=== PATIENT | female | born 1935 | race Caucasian/White ===

== ENCOUNTER → 2016-11-23 | Outpatient (CLI) | payer MEDICARE, OTHER ==
[~2016-11-23] MED LIST: DENOSUMAB 60 MG/ML 1 ML SYRINGE SQ ONE
[2016-11-23 13:36] VITALS: BP 126/70; PULSE 76; RESP 18; TEMP 97.7
== END | disposition home or self-care (01) ==
LOC: PROCWHC3 12:54
PROVIDERS: ATTEND Internal Medicine Rheumatology
DX: M81.0 Age-related osteoporosis without current pathological fracture (principal)
CPT/HCPCS: 96372

== ENCOUNTER → 2017-06-02 | Outpatient (CLI) | payer MEDICARE, OTHER ==
--- NOTE | 2017-06-07 10:55 | MM ---
Reason for exam: screening (asymptomatic). Last mammogram was performed 1 year and 6 months ago. History: Patient is postmenopausal. Family history of breast cancer in cousin at age 61. Benign excisional biopsy of the left breast, January 17, 2003. Stereotactic core biopsy, December 21, 2002. Benign core biopsy of the right breast. Physical Findings: A clinical breast exam by your physician is recommended on an annual basis and results should be correlated with mammographic findings. MG 3D Screening Mammo W/Cad Bilateral CC and MLO view(s) were taken. Prior study comparison: December 10, 2015, bilateral MG 3d screening mammo w/cad. April 10, 2014, bilateral MG screening mammo w CAD. There are scattered fibroglandular densities. There is no discrete abnormality. ASSESSMENT: Negative, BI-RAD 1 RECOMMENDATION: Routine screening mammogram of both breasts in 1 year.
== END | disposition home or self-care (01) ==
LOC: RADMAMWWP 14:29
PROVIDERS: ATTEND Family Medicine
DX: Z12.31 Encounter for screening mammogram for malignant neoplasm of breast (principal)
CPT/HCPCS: 77063; G0202

== ENCOUNTER 2017-06-11 06:05 | Day surgery (SDC) | payer MEDICARE, OTHER ==
[2017-06-09 13:23] VITALS: BMI 24.3
[2017-06-11] MEDS ORDERED: LACTATED RINGERS 1,000 ML IV SCH (06:11)
[2017-06-11] MEDS ORDERED: SODIUM CHLORIDE 0.9% 1,000 ML IV SCH ×2 (06:11→07:45)
[2017-06-11] MEDS: BENZOCAINE SPRAY 100 APPLIC/CAN MUCOUS MEM ONE ×2 (07:00→07:15)
[2017-06-11] MEDS ORDERED: LIDOCAINE 1% INJ 10MG/ML (20 ML MDV) ONE (07:03)
[2017-06-11] MEDS ORDERED: PROPOFOL 10 MG/ML 20 ML VIAL IV ONE (07:03)
[2017-06-11 07:05] LABS: Anion Gap 8 mmol/L; Blood Urea Nitrogen 17 mg/dL (7-17); Carbon Dioxide 27 mmol/L (22-30); Chloride 104 mmol/L (98-107); Glucose 70 mg/dL (74-99); Non-African American GFR(MDRD) >60 (>60 ml/min/1.73 sqM); Sodium 139 mmol/L (137-145)
[2017-06-11 07:07] LABS: Potassium 5.8 mmol/L (3.5-5.1)
[2017-06-11] MEDS ORDERED: predniSONE 10 MG TAB PO PRN (07:33)
[2017-06-11 07:40] VITALS: TEMP 97
[2017-06-11] MEDS ORDERED: DENOSUMAB 60 MG/ML 1 ML SYRINGE SQ SCH (07:45)
[2017-06-11] MEDS ORDERED: cycloSPORINE 0.05% OPHTH 0.4 ML DROPERETTE BOTH EYES SCH (07:45)
--- NOTE | 2017-06-11 07:57 | ECHOT ---
INDICATION: Atrial fibrillation. PROCEDURE: After explaining the procedure to the patient, its risks and complications, her heat rate, blood pressure and O2 saturation was monitored. Sedation was obtained by the anesthesia department. The throat was sprayed with Cetacaine. The probe was introduced into the esophagus without difficulty. Images were obtained. Following that, the probe was removed. There was no immediate complication. FINDINGS: Left atrial size is dilated. 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 The left ventricular size is normal. The left ventricular systolic function is mildly impaired. Ejection fraction is about 50%. There aortic valve revealed fibrocalcific change with aortic cusp with preserved opening. Evidence of mitral valve annuloplasty was noted. The tricuspid valve is normal. The descending thoracic aorta appears to be normal. No pericardial effusion was noted. Contrast bubble study revealed no evidence of shunting across the interatrial septum. Doppler pulse wave and color Doppler obtained and revealed moderate mitral with mild tricuspid regurgitation. There was no shunting by color Doppler study. CONCLUSION: 1. 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 2. Normal left ventricular size with mild global hypokinesis. 3. Evidence of mitral valve annuloplasty with moderate mitral regurgitation. 4. Mild tricuspid regurgitation. 5. No shunting across the interatrial septum. [facility]
[2017-06-11] MEDS ORDERED: SODIUM CHLORIDE 0.9% 500 ML IV ONE (08:00)
[2017-06-11 08:53] VITALS: PULSE 70; RESP 18
[2017-06-11] MEDS ORDERED: LOSARTAN 25 MG TAB PO SCH (09:00)
[2017-06-11] MEDS ORDERED: ALPRAZolam 0.25 MG TAB PO SCH ×2 (09:00→21:00)
[2017-06-11] MEDS ORDERED: ABATACEPT 125 MG SQ SCH (09:00)
[2017-06-11] MEDS ORDERED: CHOLECALCIFEROL 1,000 UNIT TAB PO SCH (09:00)
[2017-06-11] MEDS ORDERED: FOLIC ACID 1 MG TAB PO SCH (09:00)
[2017-06-11] MEDS ORDERED: VENLAFAXINE HCL ER 150 MG CAP PO SCH (09:00)
[2017-06-11] MEDS ORDERED: METOCLOPRAMIDE 5 MG TAB PO SCH (09:00)
[2017-06-11] MEDS ORDERED: FERROUS SULFATE 325 MG TAB PO SCH (09:00)
[2017-06-11] MEDS ORDERED: APIXABAN 5 MG TAB PO SCH (09:00)
[2017-06-11] MEDS ORDERED: NON-FORMULARY DRUG (Vit A/Vit C/Vit E/Zinc/Copper [Icaps Softgel] 1 CAP) PO SCH (09:00)
[2017-06-11] MEDS ORDERED: LEVOTHYROXINE SODIUM 137 MCG PO SCH (09:00)
[2017-06-11] MEDS ORDERED: IPRATROPIUM BROMIDE EA NOSTRIL SCH (09:00)
[2017-06-11] MEDS ORDERED: ALLOPURINOL 100 MG TAB PO SCH (09:00)
[2017-06-11] MEDS ORDERED: NITROFURANTOIN MONOHYD/M-CRYST 100 MG CAP PO SCH (09:00)
[2017-06-11] MEDS ORDERED: AMIODARONE 200 MG TAB PO SCH (09:00)
[2017-06-11] MEDS ORDERED: METHOTREXATE SODIUM 2.5 MG TAB PO SCH (09:00)
[2017-06-11] MEDS ORDERED: predniSONE 10 MG TAB PO SCH (09:00)
[2017-06-11] MEDS ORDERED: METOPROLOL TARTRATE 50 MG TAB PO SCH (09:00)
[2017-06-11 09:46] VITALS: BP 133/66
[2017-06-11] MEDS ORDERED: MELATONIN 5 MG TABLET PO SCH (21:00)
[2017-06-11] MEDS ORDERED: TEMAZEPAM 30 MG CAP PO SCH (21:00)
[2017-06-11] MEDS ORDERED: NIACIN 500 MG PO SCH (21:00)
[2017-06-11] MEDS ORDERED: NON-FORMULARY DRUG (Esomeprazole Magnesium [Nexium] 40 MG) PO SCH (21:00)
--- NOTE | 2017-06-12 10:04 | PCN ---
PROCEDURE: Cardioversion. INDICATION: Atrial fibrillation. PROCEDURE: After explaining the procedure to the patient its risks and complications. After obtaining sedation by the anesthesia department and performing transesophageal echocardiogram, a synchronized biphasic cardioversion using 200 joules was performed with orthodoxy of normal sinus rhythm. No was no immediate complication. JESSICA
== END 2017-06-11 09:48 | disposition home or self-care (01) ==
LOC: CATHCVL 06:05
PROVIDERS: ATTEND Internal Medicine Interventional Cardiology
DX: I48.1 Persistent atrial fibrillation (principal); I08.1 Rheumatic disorders of both mitral and tricuspid valves; I25.10 Atherosclerotic heart disease of native coronary artery without angina pectoris; I10 Essential (primary) hypertension; E78.2 Mixed hyperlipidemia; E03.9 Hypothyroidism, unspecified; Z82.49 Family history of ischemic heart disease and other diseases of the circulatory system; I11.9 Hypertensive heart disease without heart failure; Z79.01 Long term (current) use of anticoagulants; Z79.899 Other long term (current) drug therapy; Z79.52 Long term (current) use of systemic steroids; Z88.8 Allergy status to other drugs, medicaments and biological substances
CPT/HCPCS: 93312; 93320; 93005; 93325; 92960; 80048; J2001; J2704

== ENCOUNTER 2017-09-05 10:13 | Inpatient (IN) | payer MEDICARE, OTHER ==
[2017-09-05] MEDS ORDERED: SODIUM CHLORIDE 0.9% 1,000 ML IV STA (10:55)
[2017-09-05] MEDS ORDERED: ACETAMINOPHEN TAB 325 MG TAB PO STA (10:55)
--- NOTE | 2017-09-05 11:00 | ED ---
General Adult HPI - General Chief complaint: Fever Stated complaint: irregular heartbeat Time Seen by Provider: 09/05/17 10:38 Source: patient, RN notes reviewed Mode of arrival: wheelchair Limitations: no limitations - History of Present Illness Initial comments: 81-year-old female presents for evaluation of fever and generalized weakness. Patient has past medical history of atrial fibrillation, CAD, dementia, rheumatoid arthritis currently on methotrexate. Patient complains of some intermittent lower abdominal pain and dysuria. As well as urinary frequency. She also reports fever for the past several days. Patient denies shortness of breath, states she has had a mild cough as well. Denies URI symptoms. Denies chest pain. Denies nausea or vomiting. States she has had several loose stools which is normal for her. - Related Data Home Medications Medication Instructions Recorded Confirmed Allopurinol [Zyloprim] 100 mg PO DAILY 03/21/14 06/09/17 Esomeprazole Magnesium [NexIUM] 40 mg PO HS 03/21/14 06/11/17 Levothyroxine Sodium [Synthroid] 137 mcg PO DAILY 03/21/14 06/09/17 Denosumab [Prolia] 60 mg SQ DIRECTED 06/21/14 06/09/17 Niacin [Niacin ER] 500 mg PO HS 08/17/14 06/11/17 cycloSPORINE 0.05% OPHTH SOLN 1 applicator BOTH EYES Q12H 08/17/14 06/09/17 [Restasis] Apixaban [Eliquis] 5 mg PO BID 11/02/14 06/11/17 Venlafaxine HCl ER [Effexor XR] 150 mg PO DAILY 02/20/15 06/11/17 ALPRAZolam [Xanax] 1 mg PO BID 03/28/15 06/09/17 Ipratropium [place] [Atrovent 1 sprays EA NOSTRIL BID 04/26/15 06/09/17 Nasal [place] 0.03%] Metoprolol Tartrate [Lopressor] 50 mg PO BID 04/26/15 06/11/17 Amiodarone [Cordarone] 200 mg PO BID 05/23/15 06/11/17 Melatonin 20 mg PO HS 05/23/15 06/11/17 Methotrexate Sodium [Methotrexate] 4 tab PO WEEKLY 05/23/15 06/11/17 Procrit 40,000 units SQ DIRECTED 05/23/15 11/23/16 Temazepam [Restoril] 30 mg PO HS 05/23/15 06/09/17 ALPRAZolam [Xanax] 2 mg PO HS 06/09/17 06/11/17 Abatacept [Orencia] 125 mg SQ WEEKLY 06/09/17 06/09/17 Cholecalciferol [Vitamin D3] 5,000 unit PO WEEKLY 06/09/17 06/11/17 Ferrous Sulfate [Iron] 150 mg PO DAILY 06/09/17 06/09/17 Folic Acid 1 mg PO DAILY 06/09/17 06/11/17 Metoclopramide [Reglan] 5 mg PO TID 06/09/17 06/09/17 Nitrofurantoin Monohyd/M-Cryst 100 mg PO Q12HR 06/09/17 06/09/17 [Macrobid] Vit A/Vit C/Vit E/Zinc/Copper 1 cap PO DAILY 06/09/17 06/11/17 [ICAPS SOFTGEL] predniSONE 10 mg PO BID 06/09/17 06/09/17 predniSONE 10 mg PO DAILY PRN 06/09/17 06/11/17 Previous Rx's Medication Instructions Recorded Losartan [Cozaar] 25 mg PO DAILY #0 04/30/15 Allergies Allergy/AdvReac Type Severity Reaction Status Date / Time clonazepam [From Klonopin] Allergy Hallucinati Verified 09/05/17 10:28 ons Review of Systems ROS Statement: Those systems with pertinent positive or pertinent negative responses have been documented in the HPI. ROS Other: All systems not noted in ROS Statement are negative. Past Medical History Past Medical History: Atrial Fibrillation, Eye Disorder, GERD/Reflux, Hearing Disorder / Deafness, Memory Impairment, Osteoarthritis (OA), Rheumatoid Arthritis (RA), Thyroid Disorder Additional Past Medical History / Comment(s): HX of MACULAR DEGENERATION, PANCREATITIS, HARD OF HEARING. MYELODYSPLASPIC SYNDROME, BONE MARROW DISEASE. History of Any Multi-Drug Resistant Organisms: None Reported Past Surgical History: Back Surgery, Bariatric Surgery, Cardiac Valve Replacement, Cholecystectomy Additional Past Surgical History / Comment(s): INTESTINAL BYPASS/PROLAPSED RECTUM, TUMMY TUCK, CARDIAC VALVE REPAIR. Past Anesthesia/Blood Transfusion Reactions: No Reported Reaction Additional Past Anesthesia/Blood Transfusion Reaction / Comment(s): PAST BLOOD TRANSFUSION, no problems. Past Psychological History: Anxiety, Depression Smoking Status: Never smoker Past Alcohol Use History: None Reported Past Drug Use History: None Reported - Past Family History Mother Family Medical History: Myocardial Infarction ([place]) Father Family Medical History: Myocardial Infarction ([place]) General Exam Limitations: no limitations General appearance: alert, in no apparent distress Head exam: Present: atraumatic, normocephalic Eye exam: Present: normal appearance, scleral icterus. Absent: periorbital swelling, periorbital tenderness ENT exam: Present: mucous membranes dry Neck exam: Present: normal inspection. Absent: tenderness, meningismus Respiratory exam: Present: normal lung sounds bilaterally. Absent: respiratory distress Cardiovascular Exam: Present: regular rate, irregular rhythm GI/Abdominal exam: Present: soft. Absent: distended, tenderness, guarding, rebound Extremities exam: Present: normal inspection, normal capillary refill. Absent: pedal edema Neurological exam: Present: alert, oriented X3, CN II-XII intact. Absent: motor sensory deficit Psychiatric exam: Present: normal affect, normal mood Skin exam: Present: warm, dry, intact. Absent: cyanosis, diaphoretic Course Vital Signs 09/05/17 10:23 Temperature 100.7 F H Pulse Rate 75 Respiratory 16 Rate Blood Pressure 105/63 O2 Sat by Pulse 94 L Oximetry EKG Findings - EKG Comments: EKG Findings:: EKG shows atrial fibrillation, ventricular rate 90, castration 104, QTC 450, no ST segment elevation, T-wave abnormality in the precordial leads Medical Decision Making - Medical Decision Making 81-year-old female presenting with fever and generalized weakness. Patient was concerned for UTI, there is no significant signs of urinary tract infection at this time. She does admit to mild cough. Chest x-ray shows early consolidation in the left lung. White blood cell count is normal at 5.8, hemoglobin 13.1 which is stable, magnesium is low at 1.2 and is replaced. TSH elevated at 11.5, additional thyroid studies will be added. Patient's family member is concerned with her weakness, she will not be able to take care of herself. Patient will be admitted for electrolyte replacement, and treatment of community-acquired pneumonia. - Lab Data Result diagrams: 09/05/17 11:00 09/05/17 11:44 Lab Results 09/05/17 09/05/1717 Range/Units 11:00 11:00 11:00 WBC 5.8 (3.8-10.6) k/uL RBC 3.91 (3.80-5.40) m/uL Hgb 13.1 (11.4-16.0) gm/dL Hct 41.2 (34.0-46.0) % MCV 105.5 H (80.0-100.0) fL MCH 33.6 (25.0-35.0) pg MCHC 31.9 (31.0-37.0) g/dL RDW 15.2 (11.5-15.5) % Plt Count 199 (150-450) k/uL Neutrophils % 64 % Lymphocytes % 22 % Monocytes % 9 % Eosinophils % 2 % Basophils % 0 % Neutrophils # 3.7 (1.3-7.7) k/uL Lymphocytes # 1.3 (1.0-4.8) k/uL Monocytes # 0.5 (0-1.0) k/uL Eosinophils # 0.1 (0-0.7) k/uL Basophils # 0.0 (0-0.2) k/uL Macrocytosis Moderate PT (9.0-12.0) sec INR (<1.2) APTT (22.0-30.0) sec Sodium (137-145) mmol/L Potassium (3.5-5.1) mmol/L Chloride (98-107) mmol/L Carbon Dioxide (22-30) mmol/L Anion Gap mmol/L BUN (7-17) mg/dL Creatinine (0.52-1.04) mg/dL Est GFR (MDRD) Af Amer (>60 ml/min/1.73 sqM) Est GFR (MDRD) Non-Af (>60 ml/min/1.73 sqM) Glucose (74-99) mg/dL Plasma Lactic Acid [place] (0.7-2.0) mmol/L Calcium (8.4-10.2) mg/dL Magnesium (1.6-2.3) mg/dL Total Bilirubin (0.2-1.3) mg/dL AST (14-36) U/L ALT (9-52) U/L Alkaline Phosphatase (38-126) U/L Total Creatine Kinase (30-135) U/L CK-MB (CK-2) (0.0-2.4) ng/mL CK-MB (CK-2) Rel Index Troponin I (0.000-0.034) ng/mL NT-Pro-B Natriuret Pep pg/mL Total Protein (6.3-8.2) g/dL Albumin (3.5-5.0) g/dL TSH (0.465-4.680) mIU/L Urine Color Yellow Urine Appearance Clear (Clear) Urine pH 6.5 (5.0-8.0) Ur Specific [place] 1.017 (1.001-1.035) Urine Protein Negative (Negative) Urine Glucose (UA) Negative (Negative) Urine Ketones Negative (Negative) Urine Blood Negative (Negative) Urine Nitrite Negative (Negative) Urine Bilirubin Negative (Negative) Urine Urobilinogen <2.0 (<2.0) mg/dL Ur Leukocyte Esterase Small H (Negative) Urine RBC 3 (0-5) /hpf Urine WBC 4 (0-5) /hpf Ur Squamous Epith Cells 1 (0-4) /hpf Urine Bacteria Rare H (None) /hpf Hyaline Casts 4 H (0-2) /lpf Urine Mucus Rare H (None) /hpf Influenza Type A RNA Not Detected (Not Detectd) Influenza Type B (PCR) Not Detected (Not Detectd) 09/05/17 09/05/17 09/05/17 Range/Units 11:00 11:00 11:44 WBC (3.8-10.6) k/uL RBC (3.80-5.40) m/uL Hgb (11.4-16.0) gm/dL Hct (34.0-46.0) % MCV (80.0-100.0) fL MCH (25.0-35.0) pg MCHC (31.0-37.0) g/dL RDW (11.5-15.5) % Plt Count (150-450) k/uL Neutrophils % % Lymphocytes % % Monocytes % % Eosinophils % % Basophils % % Neutrophils # (1.3-7.7) k/uL Lymphocytes # (1.0-4.8) k/uL Monocytes # (0-1.0) k/uL Eosinophils # (0-0.7) k/uL Basophils # (0-0.2) k/uL Macrocytosis PT 10.8 (9.0-12.0) sec INR 1.1 (<1.2) APTT 25.3 (22.0-30.0) sec Sodium (137-145) mmol/L Potassium (3.5-5.1) mmol/L Chloride (98-107) mmol/L Carbon Dioxide (22-30) mmol/L Anion Gap mmol/L BUN (7-17) mg/dL Creatinine (0.52-1.04) mg/dL Est GFR (MDRD) Af Amer (>60 ml/min/1.73 sqM) Est GFR (MDRD) Non-Af (>60 ml/min/1.73 sqM) Glucose (74-99) mg/dL Plasma Lactic Acid [place] (0.7-2.0) mmol/L Calcium (8.4-10.2) mg/dL Magnesium (1.6-2.3) mg/dL Total Bilirubin (0.2-1.3) mg/dL AST (14-36) U/L ALT (9-52) U/L Alkaline Phosphatase (38-126) U/L Total Creatine Kinase 29 L (30-135) U/L CK-MB (CK-2) 0.2 (0.0-2.4) ng/mL CK-MB (CK-2) Rel Index 0.7 Troponin I <0.012 (0.000-0.034) ng/mL NT-Pro-B Natriuret Pep 2740 pg/mL Total Protein (6.3-8.2) g/dL Albumin (3.5-5.0) g/dL TSH (0.465-4.680) mIU/L Urine Color Urine Appearance (Clear) Urine pH (5.0-8.0) Ur Specific [place] (1.001-1.035) Urine Protein (Negative) Urine Glucose (UA) (Negative) Urine Ketones (Negative) Urine Blood (Negative) Urine Nitrite (Negative) Urine Bilirubin (Negative) Urine Urobilinogen (<2.0) mg/dL Ur Leukocyte Esterase (Negative) Urine RBC (0-5) /hpf Urine WBC (0-5) /hpf Ur Squamous Epith Cells (0-4) /hpf Urine Bacteria (None) /hpf Hyaline Casts (0-2) /lpf Urine Mucus (None) /hpf Influenza Type A RNA (Not Detectd) Influenza Type B (PCR) (Not Detectd) 09/05/17 09/05/17 Range/Units 11:44 11:44 WBC (3.8-10.6) k/uL RBC (3.80-5.40) m/uL Hgb (11.4-16.0) gm/dL Hct (34.0-46.0) % MCV (80.0-100.0) fL MCH (25.0-35.0) pg MCHC (31.0-37.0) g/dL RDW (11.5-15.5) % Plt Count (150-450) k/uL Neutrophils % % Lymphocytes % % Monocytes % % Eosinophils % % Basophils % % Neutrophils # (1.3-7.7) k/uL Lymphocytes # (1.0-4.8) k/uL Monocytes # (0-1.0) k/uL Eosinophils # (0-0.7) k/uL Basophils # (0-0.2) k/uL Macrocytosis PT (9.0-12.0) sec INR (<1.2) APTT (22.0-30.0) sec Sodium 133 L (137-145) mmol/L Potassium 4.3 (3.5-5.1) mmol/L Chloride 98 (98-107) mmol/L Carbon Dioxide 26 (22-30) mmol/L Anion Gap 9 mmol/L BUN 15 (7-17) mg/dL Creatinine 0.80 (0.52-1.04) mg/dL Est GFR (MDRD) Af Amer >60 (>60 ml/min/1.73 sqM) Est GFR (MDRD) Non-Af >60 (>60 ml/min/1.73 sqM) Glucose 84 (74-99) mg/dL Plasma Lactic Acid [place] 1.0 (0.7-2.0) mmol/L Calcium 9.2 (8.4-10.2) mg/dL Magnesium 1.2 L (1.6-2.3) mg/dL Total Bilirubin 0.4 (0.2-1.3) mg/dL AST 37 H (14-36) U/L ALT 33 (9-52) U/L Alkaline Phosphatase 74 (38-126) U/L Total Creatine Kinase (30-135) U/L CK-MB (CK-2) (0.0-2.4) ng/mL CK-MB (CK-2) Rel Index Troponin I (0.000-0.034) ng/mL NT-Pro-B Natriuret Pep pg/mL Total Protein 6.3 (6.3-8.2) g/dL Albumin 3.7 (3.5-5.0) g/dL TSH 11.500 H (0.465-4.680) mIU/L Urine Color Urine Appearance (Clear) Urine pH (5.0-8.0) Ur Specific [place] (1.001-1.035) Urine Protein (Negative) Urine Glucose (UA) (Negative) Urine Ketones (Negative) Urine Blood (Negative) Urine Nitrite (Negative) Urine Bilirubin (Negative) Urine Urobilinogen (<2.0) mg/dL Ur Leukocyte Esterase (Negative) Urine RBC (0-5) /hpf Urine WBC (0-5) /hpf Ur Squamous Epith Cells (0-4) /hpf Urine Bacteria (None) /hpf Hyaline Casts (0-2) /lpf Urine Mucus (None) /hpf Influenza Type A RNA (Not Detectd) Influenza Type B (PCR) (Not Detectd) Disposition Clinical Impression: Community acquired pneumonia, Hypomagnesemia, Generalized weakness Disposition: ADMITTED IP TO THIS [facility] Condition: Stable Referrals: Ariadne Henderson MD [Primary Care Provider] - 1-2 days Decision to Admit Reason: Admit from EC Decision Date: 09/05/17 Decision Time: 13:00
[2017-09-05 11:31] LABS: Appearance,Urine Clear (Clear); Bacteria,Urine Rare /hpf; Bilirubin,Urine Negative (Negative); Glucose,Urine (UA) Negative (Negative); Ketones,Urine Negative (Negative); Leukocyte Esterase,Urine Small (Negative); Mucus,Urine Rare /hpf; Nitrite,Urine Negative (Negative); PH, Urine 6.5 (5.0-8.0); Particle Count 4106; Protein,Urine Negative (Negative); RBC,Urine 3 /hpf (0-5); Specific Gravity,Urine 1.017 (1.001-1.035); Squamous Epithelial Cell,Urine 1 /hpf (0-4); UA Billing (MACRO vs. MICRO) MICRO; Urobilinogen,Urine <2.0 mg/dL (<2.0); WBC,Urine 4 /hpf (0-5)
[2017-09-05 11:37] LABS: Basophils % (A) 0 %; CH 34.4; CHCM 32.7; Eosinophils # (A) 0.1 k/uL (0-0.7); Eosinophils % (A) 2 %; HCT 41.2 % (34.0-46.0); HDW 2.92; HGB 13.1 gm/dL (11.4-16.0); Luc % (Auto) 4; Lymphocytes # (A) 1.3 k/uL (1.0-4.8); Lymphocytes % (A) 22 %; MCH 33.6 pg (25.0-35.0); MCHC 31.9 g/dL (31.0-37.0); MCV 105.5 fL (80.0-100.0); Macrocytosis Moderate; Mean Platelet Volume 7.6; Monocytes # (A) 0.5 k/uL (0-1.0); Monocytes % (A) 9 %; Neutrophils # (A) 3.7 k/uL (1.3-7.7); Neutrophils % (A) 64 %; RBC 3.91 m/uL (3.80-5.40); RDW 15.2 % (11.5-15.5); WBC 5.8 k/uL (3.8-10.6); WBC (Perox) 5.56
[2017-09-05 11:59] LABS: INR 1.1 (<1.2); Partial Thromboplastin Time 25.3 sec (22.0-30.0); Prothrombin Time 10.8 sec (9.0-12.0)
[2017-09-05 12:07] LABS: ALT 33 U/L (9-52); AST 37 U/L (14-36); Alkaline Phosphatase 74 U/L (38-126); Anion Gap 9 mmol/L; Blood Urea Nitrogen 15 mg/dL (7-17); Calcium 9.2 mg/dL (8.4-10.2); Carbon Dioxide 26 mmol/L (22-30); Chloride 98 mmol/L (98-107); Glucose 84 mg/dL (74-99); Magnesium 1.2 mg/dL (1.6-2.3); Non-African American GFR(MDRD) >60 (>60 ml/min/1.73 sqM); Potassium 4.3 mmol/L (3.5-5.1); Sodium 133 mmol/L (137-145); Total Bilirubin 0.4 mg/dL (0.2-1.3); Total Protein 6.3 g/dL (6.3-8.2)
[2017-09-05 12:20] LABS: Creatine Kinase 29 U/L (30-135)
[2017-09-05 12:33] LABS: Creatine Kinase MB 0.2 ng/mL (0.0-2.4); Troponin I <0.012 ng/mL (0.000-0.034)
--- NOTE | 2017-09-05 12:38 | XR ---
EXAMINATION TYPE: XR chest 2V DATE OF EXAM: 09/05/2017 HISTORY: fever. REFERENCE: Previous study dated 04/26/2015. FINDINGS: There has been a midline sternotomy. The lungs are overinflated. The heart is mildly enlarged. There is scarring at the right lung base. T here is atelectasis in the left midlung. There is chronic interstitial change. This is likely on the basis of interstitial fibrosis. Pleural spaces are clear. IMPRESSION: 1. COPD. 2. CARDIOMEGALY. 3. SCARRING, RIGHT LUNG BASE. 4. ATELECTASIS OR EARLY CONSOLIDATION, LEFT MIDLUNG.
[2017-09-05] MEDS ORDERED: AZITHROMYCIN 500 MG in SODIUM CHLORIDE 0.9% 250 ML IVPB STA (12:56)
[2017-09-05] MEDS ORDERED: cefTRIAXone IN SWFI 1,000 MG/10 ML SYRINGE IVP STA (12:58)
[2017-09-05] MEDS ORDERED: NALOXONE 0.4 MG/ML 1 ML VIAL IV PRN (13:03)
[2017-09-05] MEDS ORDERED: ACETAMINOPHEN TAB 325 MG TAB PO PRN (13:03)
[2017-09-05 15:02] VITALS: BMI 21.7
[2017-09-05] MEDS ORDERED: ALPRAZolam 0.5 MG TAB PO PRN (16:10)
[2017-09-05] MEDS ORDERED: LOPERAMIDE 2 MG CAP PO PRN (16:10)
[2017-09-05] MEDS: MAGNESIUM SULFATE-D5W PMX 1 GM in DEXTROSE/WATER 1 100ML.BAG IVPB SCH ×4 (17:12→23:52)
--- NOTE | 2017-09-05 17:31 | P.HPIM ---
History of Present Illness 81-year-old female on methotrexate the him is a pleasant because of methotrexate does have history of forearm denied arthritis came in with symptoms of dysuria or urinary urgency and frequency patient has a slight cough. Patient was admitted for urinary tract infection or pneumonia patient had a chest x-ray which showed some similar changes on the x-ray which are suspicious for releases of pneumonia although I reviewed the chest x-ray patient may have little bit of pulmonary edema beyond which I didn't see much of a pneumonic infiltrate, patient the urine is mildly abnormal because patient was partially being treated with Macrobid as an outpatient. Patient will be continued on present antibiotic Rocephin and also azithromycin as I cannot completely rule out pneumonia patient is definitely immunosuppressive had fevers at home doesn't have significant leukocytosis because of the fact she is being partially treated for urinary tract infection with nitrofurantoin time. Urine cultures and blood cultures were obtained but I suspect that urine cultures are negative as she is being partially treated for her tract infectionarea at patient was also complaining of generalized weakness and tiredness going on for sometime Review of Systems REVIEW OF SYSTEMS: CONSTITUTIONAL: as mentioned above HEENT: No recent visual problems or hearing problems. Denied any sore throat. CARDIOVASCULAR: No chest pain, orthopnea, PND, no palpitations, no syncope. PULMONARY: No shortness of breath, no cough, no hemoptysis. GASTROINTESTINAL: No diarrhea, no nausea, no vomiting, no abdominal pain. Normoactive bowel sounds. NEUROLOGICAL: No headaches, no weakness, no numbness. HEMATOLOGICAL: Denies any bleeding or petechiae. GENITOURINARY: as mentioned above MUSCULOSKELETAL/RHEUMATOLOGICAL: Denies any joint pain, swelling, or any muscle pain. ENDOCRINE: Denies any polyuria or polydipsia. The rest of the 14-point review of systems is negative. Past Medical History Past Medical History: Atrial Fibrillation, Eye Disorder, GERD/Reflux, Hearing Disorder / Deafness, Memory Impairment, Osteoarthritis (OA), Rheumatoid Arthritis (RA), Thyroid Disorder Additional Past Medical History / Comment(s): HX of MACULAR DEGENERATION, PANCREATITIS, HARD OF HEARING. MYELODYSPLASTIC SYNDROME, BONE MARROW DISEASE. History of Any Multi-Drug Resistant Organisms: None Reported Past Surgical History: Back Surgery, Bariatric Surgery, Cardiac Valve Replacement, Cholecystectomy Additional Past Surgical History / Comment(s): INTESTINAL BYPASS/PROLAPSED RECTUM, TUMMY TUCK, CARDIAC VALVE REPAIR. Past Anesthesia/Blood Transfusion Reactions: No Reported Reaction Additional Past Anesthesia/Blood Transfusion Reaction / Comment(s): PAST BLOOD TRANSFUSION, no problems. Past Psychological History: Anxiety, Depression Additional Psychological History / Comment(s): pt's brother rosalino lives with her. pt stated she is independant uses cane at times and has had 4 falls recently. Smoking Status: Never smoker Past Alcohol Use History: None Reported Past Drug Use History: None Reported - Past Family History Mother Family Medical History: Myocardial Infarction ([place]) Father Family Medical History: Myocardial Infarction ([place]) Medications and Allergies Home Medications Medication Instructions Recorded Confirmed Type Allopurinol [Zyloprim] 100 mg PO DAILY 03/21/14 09/05/17 History Niacin [Niacin ER] 500 mg PO HS 08/17/14 09/05/17 History Apixaban [Eliquis] 5 mg PO BID 11/02/14 09/05/17 History Venlafaxine HCl ER [Effexor XR] 150 mg PO DAILY 02/20/15 09/05/17 History Metoprolol Tartrate [Lopressor] 50 mg PO DAILY 04/26/15 09/05/17 History Losartan [Cozaar] 25 mg PO DAILY #0 04/30/15 09/05/17 Rx Melatonin 10 mg PO HS 05/23/15 09/05/17 History Methotrexate Sodium [Methotrexate] 10 mg PO FR 05/23/15 09/05/17 History Temazepam [Restoril] 30 mg PO HS 05/23/15 09/05/17 History Ferrous Sulfate [Iron] 325 mg PO DAILY 06/09/17 09/05/17 History Nitrofurantoin Monohyd/M-Cryst 100 mg PO Q12HR 06/09/17 09/05/17 History [Macrobid] ALPRAZolam [Xanax] 1 mg PO BID 09/05/17 09/05/17 History ALPRAZolam [Xanax] 2 mg PO HS 09/05/17 09/05/17 History Acetaminophen with Codeine 1 tab PO Q6H PRN 09/05/17 09/05/17 History [Acetaminophen-Cod #2 Tablet] Donepezil [Aricept] 5 mg PO HS 09/05/17 09/05/17 History Ergocalciferol [Vitamin D2] 50,000 unit PO FR 09/05/17 09/05/17 History Levothyroxine Sodium 137 mcg PO DAILY 09/05/17 09/05/17 History Loperamide [Imodium] 2 mg PO QID PRN 09/05/17 09/05/17 History Lutein-Zeaxantnin 25mg/5mg 1 tab PO DAILY 09/05/17 09/05/17 History Magnesium Oxide [Mag-Ox] 400 mg PO DAILY 09/05/17 09/05/17 History Mirabegron [Myrbetriq] 25 mg PO ONCE 09/05/17 09/05/17 History Mirabegron [Myrbetriq] 50 mg PO DAILY 09/05/17 09/05/17 History Omeprazole [PriLOSEC] 40 mg PO DAILY 09/05/17 09/05/17 History Allergies Allergy/AdvReac Type Severity Reaction Status Date / Time clonazepam [From Klonopin] Allergy Hallucinati Verified 09/05/17 10:28 ons Physical Exam Vitals: Vital Signs Temp Pulse Pulse Resp BP BP Pulse Ox 09/05/17 15:00 98.2 F 95 16 111/68 92 L 09/05/17 13:31 98.3 F 84 16 122/67 96 09/05/17 10:23 100.7 F H 75 16 105/63 94 L Intake and Output 09/05/17 09/05/17 09/05/17 06:59 14:59 22:59 Other: # Voids 0 # Bowel Movements 0 Weight 52 kg Patient Weight 09/06/17 06:59 Weight 52 kg PHYSICAL EXAMINATION: GENERAL: The patient is alert and oriented x3, not in any acute distress. Well developed, well nourished. HEENT: Pupils are round and equally reacting to light. EOMI. No scleral icterus. No conjunctival pallor. Normocephalic, atraumatic. No pharyngeal erythema. No thyromegaly. CARDIOVASCULAR: S1 and S2 present. patient has grade 4 x 4 diastolic murmur and diuretic area, rubs, or gallops. PULMONARY: Chest is clear to auscultation, no wheezing or crackles. ABDOMEN: Soft, nontender, nondistended, normoactive bowel sounds. No palpable organomegaly. MUSCULOSKELETAL: No joint swelling or deformity. EXTREMITIES: No cyanosis, clubbing, or pedal edema. NEUROLOGICAL: Gross neurological examination did not reveal any focal deficits. SKIN: No rashes. Results CBC & Chem 7: 09/05/17 11:00 09/05/17 11:44 Labs: Abnormal Lab Results - Last 24 Hours (Table) 09/05/17 09/05/17 09/05/17 Range/Units 11:00 11:00 11:44 MCV 105.5 H (80.0-100.0) fL Sodium (137-145) mmol/L Magnesium (1.6-2.3) mg/dL AST (14-36) U/L Total Creatine Kinase 29 L (30-135) U/L TSH (0.465-4.680) mIU/L Ur Leukocyte Esterase Small H (Negative) Urine Bacteria Rare H (None) /hpf Hyaline Casts 4 H (0-2) /lpf Urine Mucus Rare H (None) /hpf 09/05/17 Range/Units 11:44 MCV (80.0-100.0) fL Sodium 133 L (137-145) mmol/L Magnesium 1.2 L (1.6-2.3) mg/dL AST 37 H (14-36) U/L Total Creatine Kinase (30-135) U/L TSH 11.500 H (0.465-4.680) mIU/L Ur Leukocyte Esterase (Negative) Urine Bacteria (None) /hpf Hyaline Casts (0-2) /lpf Urine Mucus (None) /hpf Microbiology - Last 24 Hours (Table) 09/05/17 11:00 Urine Culture - Preliminary Urine,Voided Thrombosis Risk Factor Assmnt - Choose All That Apply Each Factor Represents 1 point: Abnormal pulmonary function (COPD), Oral contraceptives or hormone replacement therapy, Serious lung disease incl. pneumonia (< 1month) Each Risk Factor Represents 3 Points: Age 75 years or older Thrombosis Risk Factor Assessment Total Risk Factor Score: 6 Thrombosis Risk Factor Assessment Level: High Risk Assessment and Plan Plan: #1 fever: Most probably related to urinary tract infection patient will be continued on above-mentioned antibiotics's azithromycin and probably can be discontinued tomorrow. #2he'll fibrillation: Rate controlled patient will be continued on anticoagulation. Continue her rate control medications. #3 mild systolic dysfunction although I do not know her ejection fraction patient does not appear to be in significant exacerbation that mild may be mild pulmonary edema. We'll continue to monitor this can you IV fluids #4 Aortic regurgitation: Which is being monitored as outpatient. #5 gastroesophageal reflux disease #6 osteoarthritis and rheumatoid arthritis #7 hypothyroidismand TSH is elevated because of which I'm increasing the dose of levothyroxine patient's generalized weakness is probably related to that #8 hypomagnesemia potassium will be supplemented
[2017-09-05] MEDS: Acetaminophen-Codeine 300-30mg TAB PO PRN (18:45)
[2017-09-05] MEDS ORDERED: DONEPEZIL 5 MG TAB PO SCH (21:00)
[2017-09-05] MEDS ORDERED: ALPRAZolam 0.5 MG TAB PO SCH (21:00)
[2017-09-05] MEDS ORDERED: MELATONIN 5 MG TABLET PO SCH (21:00)
[2017-09-05] MEDS ORDERED: NIACIN TR 500 MG CAPSULE.ER PO SCH (21:00)
[2017-09-05] MEDS: HYDROcodone/APAP 5-325MG 1 EACH TAB PO PRN (22:19)
[2017-09-05] MEDS: APIXABAN 5 MG TAB PO SCH (22:19)
[2017-09-06] MEDS: Acetaminophen-Codeine 300-30mg TAB PO PRN (02:41)
[2017-09-06] MEDS: HYDROcodone/APAP 5-325MG 1 EACH TAB PO PRN ×2 (04:34→10:23)
[2017-09-06] MEDS ORDERED: LEVOTHYROXINE 75 MCG TAB PO SCH (06:30)
[2017-09-06 07:58] LABS: Aty Lym Flag Moderate; CH 33.3; CHCM 30.9; HCT 36.4 % (34.0-46.0); HDW 2.77; HGB 11.2 gm/dL (11.4-16.0); Hypochromasia Moderate; MCH 33.3 pg (25.0-35.0); MCHC 30.8 g/dL (31.0-37.0); MCV 108.4 fL (80.0-100.0); Macrocytosis Marked; Mean Platelet Volume 7.6; RBC 3.36 m/uL (3.80-5.40); WBC 4.7 k/uL (3.8-10.6)
[2017-09-06 08:22] LABS: ALT 34 U/L (9-52); AST 35 U/L (14-36); Alkaline Phosphatase 64 U/L (38-126); Anion Gap 9 mmol/L; Blood Urea Nitrogen 11 mg/dL (7-17); Calcium 8.3 mg/dL (8.4-10.2); Carbon Dioxide 25 mmol/L (22-30); Chloride 101 mmol/L (98-107); Glucose 88 mg/dL (74-99); Magnesium 2.2 mg/dL (1.6-2.3); Non-African American GFR(MDRD) >60 (>60 ml/min/1.73 sqM); Potassium 3.7 mmol/L (3.5-5.1); Sodium 135 mmol/L (137-145); Total Bilirubin 0.3 mg/dL (0.2-1.3); Total Protein 6.4 g/dL (6.3-8.2)
[2017-09-06] MEDS: APIXABAN 5 MG TAB PO SCH (08:32)
[2017-09-06 08:36] LABS: Add Differential Manual Differential
[2017-09-06 08:38] LABS: Manual Review Performed; Nucleated Red Blood Cells 0 /100 WBC (0-0); Total Cells Counted 100
[2017-09-06 08:42] VITALS: BP 129/72; PULSE 83; RESP 16; TEMP 97.8
[2017-09-06] MEDS ORDERED: LOSARTAN 25 MG TAB PO SCH (09:00)
[2017-09-06] MEDS ORDERED: PANTOPRAZOLE 40 MG TABLET PO SCH (09:00)
[2017-09-06] MEDS ORDERED: METOPROLOL TARTRATE 50 MG TAB PO SCH (09:00)
[2017-09-06] MEDS ORDERED: FERROUS SULFATE 325 MG TAB PO SCH (09:00)
[2017-09-06] MEDS ORDERED: AZITHROMYCIN 500 MG in SODIUM CHLORIDE 0.9% 250 ML IVPB SCH (09:00)
[2017-09-06] MEDS ORDERED: NON-FORMULARY DRUG (Mirabegron [Myrbetriq] 25 MG) PO SCH (09:00)
[2017-09-06] MEDS ORDERED: VENLAFAXINE HCL ER 150 MG CAP PO SCH (09:00)
[2017-09-06] MEDS ORDERED: MAGNESIUM OXIDE 400 MG TAB PO SCH (09:00)
[2017-09-06] MEDS ORDERED: NON-FORMULARY DRUG (Mirabegron [Myrbetriq] 50 MG) PO SCH (09:00)
[2017-09-06] MEDS ORDERED: cefTRIAXone IN SWFI 1,000 MG/10 ML SYRINGE IVP SCH (09:00)
--- NOTE | 2017-09-06 15:12 | P.DS ---
Providers Date of admission: 09/05/17 13:04 Attending physician: Martin Al [facility]: [facility] Course: Patient was admitted for sepsis possibility of urinary tract infection and patient was is being partially treated for sepsis because of which she urine cultures are negative patient is clinically doing well will be discharged on Ceftin for 5 more days. GENERAL: The patient is alert and oriented x3, not in any acute distress. Well developed, well nourished. HEENT: Pupils are round and equally reacting to light. EOMI. No scleral icterus. No conjunctival pallor. Normocephalic, atraumatic. No pharyngeal erythema. No thyromegaly. CARDIOVASCULAR: S1 and S2 present. patient has grade 4 x 4 diastolic murmur and diuretic area, rubs, or gallops. PULMONARY: Chest is clear to auscultation, no wheezing or crackles. ABDOMEN: Soft, nontender, nondistended, normoactive bowel sounds. No palpable organomegaly. MUSCULOSKELETAL: No joint swelling or deformity. EXTREMITIES: No cyanosis, clubbing, or pedal edema. NEUROLOGICAL: Gross neurological examination did not reveal any focal deficits. SKIN: No rashes. #1 fever: Most probably related to urinary tract infection #2he'll fibrillation: Rate controlled patient will be continued on anticoagulation. Continue her rate control medications. #3 mild systolic dysfunction although I do not know her ejection fraction patient does not appear to be in significant exacerbation #4 Aortic regurgitation: Which is being monitored as outpatient. #5 gastroesophageal reflux disease #6 osteoarthritis and rheumatoid arthritis #7 hypothyroidismand TSH is elevated levothyroxine dose will be decreased 100 mcg #8 hypomagnesemia potassium will be supplemented Patient Condition at Discharge: Stable Plan - Discharge Summary Discharge Rx Participant: No New Discharge Prescriptions: New Cefuroxime Axetil [Ceftin] 500 mg PO BID #10 tab Levothyroxine Sodium [Levo-T] 100 mcg PO DAILY #30 tablet Continue Allopurinol [Zyloprim] 100 mg PO DAILY Niacin [Niacin ER] 500 mg PO HS Apixaban [Eliquis] 5 mg PO BID Venlafaxine HCl ER [Effexor XR] 150 mg PO DAILY Metoprolol Tartrate [Lopressor] 50 mg PO DAILY Losartan [Cozaar] 25 mg PO DAILY #0 Melatonin 10 mg PO HS Methotrexate Sodium [Methotrexate] 10 mg PO FR Ferrous Sulfate [Iron] 325 mg PO DAILY Loperamide [Imodium] 2 mg PO QID PRN PRN Reason: Diarrhea Acetaminophen with Codeine [Acetaminophen-Cod #2 Tablet] 1 tab PO Q6H PRN PRN Reason: Pain Omeprazole [PriLOSEC] 40 mg PO DAILY Magnesium Oxide [Mag-Ox] 400 mg PO DAILY Ergocalciferol [Vitamin D2 (DRISDOL)] 50,000 unit PO FR Donepezil [Aricept] 5 mg PO HS Mirabegron [Myrbetriq] 50 mg PO DAILY Lutein-Zeaxantnin 25mg/5mg 1 tab PO DAILY Mirabegron [Myrbetriq] 25 mg PO ONCE ALPRAZolam [Xanax] 1 mg PO BID Changed ALPRAZolam [Xanax] 0.5 mg PO HS PRN #0 PRN Reason: Anxiety Discontinued Temazepam [Restoril] 30 mg PO HS Nitrofurantoin Monohyd/M-Cryst [Macrobid] 100 mg PO Q12HR Levothyroxine Sodium 137 mcg PO DAILY Discharge Medication List Allopurinol [Zyloprim] 100 mg PO DAILY 03/21/14 [History] Niacin [Niacin ER] 500 mg PO HS 08/17/14 [History] Apixaban [Eliquis] 5 mg PO BID 11/02/14 [History] Venlafaxine HCl ER [Effexor XR] 150 mg PO DAILY 02/20/15 [History] Metoprolol Tartrate [Lopressor] 50 mg PO DAILY 04/26/15 [History] Losartan [Cozaar] 25 mg PO DAILY #0 04/30/15 [Rx] Melatonin 10 mg PO HS 05/23/15 [History] Methotrexate Sodium [Methotrexate] 10 mg PO FR 05/23/15 [History] Ferrous Sulfate [Iron] 325 mg PO DAILY 06/09/17 [History] ALPRAZolam [Xanax] 1 mg PO BID 09/05/17 [History] Acetaminophen with Codeine [Acetaminophen-Cod #2 Tablet] 1 tab PO Q6H PRN [History] Donepezil [Aricept] 5 mg PO HS 09/05/17 [History] Ergocalciferol [Vitamin D2 (DRISDOL)] 50,000 unit PO FR 09/05/17 [History] Loperamide [Imodium] 2 mg PO QID PRN 09/05/17 [History] Lutein-Zeaxantnin 25mg/5mg 1 tab PO DAILY 09/05/17 [History] Magnesium Oxide [Mag-Ox] 400 mg PO DAILY 09/05/17 [History] Mirabegron [Myrbetriq] 25 mg PO ONCE 09/05/17 [History] Mirabegron [Myrbetriq] 50 mg PO DAILY 09/05/17 [History] Omeprazole [PriLOSEC] 40 mg PO DAILY 09/05/17 [History] ALPRAZolam [Xanax] 0.5 mg PO HS PRN #0 09/06/17 [Rx] Cefuroxime Axetil [Ceftin] 500 mg PO BID #10 tab 09/06/17 [Rx] Levothyroxine Sodium [Levo-T] 100 mcg PO DAILY #30 tablet 09/06/17 [Rx] Follow up Appointment(s)/Referral(s): Ariadne Henderson MD [Primary Care Provider] - 09/09/17 11:00 am (with Linn NUGENT) [facility] Visiting Nurse, [NON-STAFF] - 1 Week Patient Instructions/Handouts: Community Acquired Pneumonia (DC), Hypomagnesemia (DC) Discharge Disposition: HOME WITH HOME HEALTH SERVICES
[2017-09-07] MEDS ORDERED: AZITHROMYCIN 500 MG TAB PO SCH (09:00)
[2017-09-10] MEDS ORDERED: METHOTREXATE SODIUM 2.5 MG TAB PO SCH (09:00)
== END 2017-09-06 14:56 | disposition home health service (06) | DRG 872 ==
LOC: EC 10:13 → 4MS4W 13:04
PROVIDERS: ADMIT Internal Medicine; ATTEND Internal Medicine
DX: A41.9 Sepsis, unspecified organism (principal); I50.22 Chronic systolic (congestive) heart failure; N39.0 Urinary tract infection, site not specified; E83.42 Hypomagnesemia; D46.9 Myelodysplastic syndrome, unspecified; K21.9 Gastro-esophageal reflux disease without esophagitis; I48.91 Unspecified atrial fibrillation; F32.9 Major depressive disorder, single episode, unspecified; I35.1 Nonrheumatic aortic (valve) insufficiency; F41.9 Anxiety disorder, unspecified; H35.30 Unspecified macular degeneration; H91.90 Unspecified hearing loss, unspecified ear; M06.9 Rheumatoid arthritis, unspecified; M19.90 Unspecified osteoarthritis, unspecified site; Z79.01 Long term (current) use of anticoagulants; Z79.899 Other long term (current) drug therapy; Z82.49 Family history of ischemic heart disease and other diseases of the circulatory system; Z95.2 Presence of prosthetic heart valve; E03.9 Hypothyroidism, unspecified
CPT/HCPCS: 36415; 71020; 80053; 81001; 82550; 82553; 83605; 83735; 83880; 84443; 84484; 85025; 85610; 85730; 87040; 87086; 87502; 93005; 96360; 96361; 99285

== ENCOUNTER 2017-12-07 16:39 | Emergency (ER) | payer MEDICARE, OTHER ==
[2017-12-07 16:58] VITALS: PULSE 50
--- NOTE | 2017-12-07 18:08 | ED ---
General Adult HPI - General Chief complaint: Head Injury Stated complaint: Fall-Head Injury Time Seen by Provider: 12/07/17 17:34 Source: patient, family, RN notes reviewed Mode of arrival: wheelchair Limitations: no limitations - History of Present Illness Initial comments: Patient's an 82-year-old female who presents emergency room today with a chief complaint of a fall that occurred approximately an hour and a half ago. She does admit that she stood up went to turn around to talk to her brother and lost her balance falling down hitting her head on the left side against the reclining chair lever. She denies any loss consciousness. She states she was able to get back up. She does admit that she's on a blood thinner of Eliquis. Patient does admit to a bruise and a small cut to the left side of the head. She denies any other complaints or symptoms. Patient denies any recent fever, chills, shortness of breath, chest pain, back pain, abdominal pain, nausea or vomiting, numbness or tingling, dysuria or hematuria, constipation or diarrhea, headaches or visual changes, or any other complaints. - Related Data Home Medications Medication Instructions Recorded Confirmed Allopurinol [Zyloprim] 100 mg PO DAILY 03/21/14 12/07/17 Niacin [Niacin ER] 500 mg PO 08/17/14 12/07/17 Apixaban [Eliquis] 5 mg PO BID 11/02/14 12/07/17 Metoprolol Tartrate [Lopressor] 50 mg PO DAILY 04/26/15 12/07/17 Melatonin 10 mg PO 05/23/15 12/07/17 Methotrexate Sodium [Methotrexate] 10 mg PO 05/23/15 12/07/17 Ergocalciferol [Vitamin D2 50,000 unit PO 09/05/17 12/07/17 (DRISDOL)] Loperamide [Imodium] 2 mg PO QID PRN 09/05/17 12/07/17 ALPRAZolam [Xanax] 0.25 mg PO QID 12/07/17 12/07/17 Calcium Carbonate/Vitamin D3 1 tab PO DAILY 12/07/17 12/07/17 [Calcium 500-Vit D3 200 Tablet] Diphenox-Atrop 2.5-0.025 mg 1 tab PO DAILY PRN 12/07/17 12/07/17 [Lomotil] Donepezil [Aricept] 10 mg PO HS 12/07/17 12/07/17 Estradiol [Estrace Cream 0.01%] 1 applic VAGINAL MOWEFR 12/07/17 12/07/17 Folic Acid 0.4 mg PO DAILY 12/07/17 12/07/17 Ipratropium Ibapah [Ipratropium 1 spray EA NOSTRIL BID 12/07/17 12/07/17 Ibapah 0.03%] Iron Polysaccharide Complex 150 mg PO DAILY 12/07/17 12/07/17 [Ferrex 150] Levothyroxine Sodium [Synthroid] 137 mcg PO DAILY 12/07/17 12/07/17 Metoclopramide [Reglan] 10 mg PO BID PRN 12/07/17 12/07/17 Mirabegron [Myrbetriq] 25 mg PO DAILY 12/07/17 12/07/17 Potassium Chloride ER [K-Dur 10] 10 meq PO BID 12/07/17 12/07/17 Ranitidine HCl [Zantac] 150 mg PO BID 12/07/17 12/07/17 Temazepam [Restoril] 30 mg PO HS PRN 12/07/17 12/07/17 Tofacitinib Citrate [Xeljanz] 5 mg PO BID 12/07/17 12/07/17 Trospium Chloride [Sanctura] 20 mg PO DAILY 12/07/17 12/07/17 Vit A/Vit C/Vit E/Zinc/Copper 1 cap PO DAILY 12/07/17 12/07/17 [ICAPS SOFTGEL] Previous Rx's Medication Instructions Recorded Losartan [Cozaar] 25 mg PO DAILY #0 04/30/15 Allergies Allergy/AdvReac Type Severity Reaction Status Date / Time clonazepam [From Klonopin] Allergy Hallucinati Verified 12/07/17 18:04 ons Review of Systems ROS Statement: Those systems with pertinent positive or pertinent negative responses have been documented in the HPI. ROS Other: All systems not noted in ROS Statement are negative. Past Medical History Past Medical History: Atrial Fibrillation, Eye Disorder, GERD/Reflux, Hearing Disorder / Deafness, Memory Impairment, Osteoarthritis (OA), Rheumatoid Arthritis (RA), Thyroid Disorder Additional Past Medical History / Comment(s): HX of MACULAR DEGENERATION, PANCREATITIS, HARD OF HEARING. MYELODYSPLASTIC SYNDROME, BONE MARROW DISEASE, overactive bladder History of Any Multi-Drug Resistant Organisms: None Reported Past Surgical History: Back Surgery, Bariatric Surgery, Cardiac Valve Replacement, Cholecystectomy Additional Past Surgical History / Comment(s): INTESTINAL BYPASS/PROLAPSED RECTUM, TUMMY TUCK, CARDIAC VALVE REPAIR. Past Anesthesia/Blood Transfusion Reactions: No Reported Reaction Additional Past Anesthesia/Blood Transfusion Reaction / Comment(s): PAST BLOOD TRANSFUSION, no problems. Past Psychological History: Anxiety, Depression Smoking Status: Never smoker Past Alcohol Use History: None Reported Past Drug Use History: None Reported - Past Family History Mother Family Medical History: Myocardial Infarction (ME) Father Family Medical History: Myocardial Infarction (ME) General Exam - General Exam Comments Initial Comments: General: The patient is awake and alert, in no distress, and does not appear acutely ill. Eye: Pupils are equal, round and reactive to light, extra-ocular movements are intact. No nystagmus. There is normal conjunctiva bilaterally. No signs of icterus. Ears, nose, mouth and throat: There are moist mucous membranes and no oral lesions. Neck: The neck is supple, there is no tenderness or JVD. Cardiovascular: There is a regular rate and rhythm. No murmur, rub or gallop is appreciated. Respiratory: Lungs are clear to auscultation, respirations are non-labored, breath sounds are equal. No wheezes, stridor, rales, or rhonchi. Musculoskeletal: Normal ROM. No tenderness cervical, thoracic, lumbar spine. No step-off or deformity.. Strength 5/5. Sensation intact. Pulses equal bilaterally 2+. Neurological: A&O x 3. CN II-XII intact, There are no obvious motor or sensory deficits. Coordination appears grossly intact. Speech is normal. Skin: Small contusion to the left side of the scalp. Psychiatric: Cooperative, appropriate mood & affect, normal judgment. Limitations: no limitations Course Vital Signs 12/07/17 12/07/17 16:53 18:20 Temperature 97.2 F L 98.6 F Pulse Rate 50 L 50 L Respiratory 18 20 Rate Blood Pressure 127/59 152/78 O2 Sat by Pulse 99 98 Oximetry Medical Decision Making - Medical Decision Making Case discussed in detail with attending physician Patient reexamined at this time shows no signs of distress resting comfortably. Patient patient Medicare in the emergency room. She does not that she's had multiple fall in the past. Patient CT of the head is negative. States feels fine otherwise. EKG was performed because patient was bradycardic on triage. She has had bradycardia on previous visit back in 2014. Patient's EKG shows heart rate of 44. Does show A. fib she does have history. Patient denies any other complaints. Patient's med review was reviewed and shows that she is on metoprolol 50 mg. Patient does live with her brother. Neighbors were through also states that she helps her out. Patient feels comfortable being discharged his normal state in the hospital. He'll be discharged advised to cut the dose of metoprolol in half to 25 mg daily. Advised follow-up family doctor over the next 2 days. Advised return if any symptoms increase worsen or for new concerns. Disposition Clinical Impression: Fall, Head injury, Bradycardia Disposition: HOME SELF-CARE Condition: Good Instructions: Head Injury (ED) Additional Instructions: Please cut dose of metoprolol in half from 50 mg to 25 mg daily. Please follow- up the family doctor over the next 2 days. Please return to emergency room if any symptoms increase worsen appropriate concerns. Referrals: Ariadne Henderson MD [Primary Care Provider] - 1-2 days Time of Disposition: 19:43
[2017-12-07 18:31] VITALS: RESP 20; TEMP 98.6
--- NOTE | 2017-12-07 18:39 | CT ---
EXAMINATION: CT brain wo con DATE AND TIME: 12/07/2017 6:03 PM ORDERING PROVIDER: Jeet Ward CLINICAL INDICATION: Pain - posterior trauma today. TECHNIQUE: Standard departmental protocol. COMPARISON: April 01, 2016 DESCRIPTION: The calvarium is intact. There is no intracranial hemorrhage. There is no mass or mass e ffect. There is no definite new attenuation defect. Remainder of the intra-axial and extra-axial comp artment examination is unremarkable. The paranasal sinuses, middle ear cavities, and mastoid sinus ai r cells are clear. The orbits are intact. IMPRESSION: NO ACUTE PROCESS.
[2017-12-07 20:06] VITALS: BP 148/78
== END 2017-12-07 20:05 | disposition home or self-care (01) ==
LOC: EC 16:39
DX: S00.03XA Contusion of scalp, initial encounter (principal); R00.1 Bradycardia, unspecified; I48.91 Unspecified atrial fibrillation; K21.9 Gastro-esophageal reflux disease without esophagitis; M06.9 Rheumatoid arthritis, unspecified; H91.90 Unspecified hearing loss, unspecified ear; E07.9 Disorder of thyroid, unspecified; F41.9 Anxiety disorder, unspecified; F32.9 Major depressive disorder, single episode, unspecified; Z79.01 Long term (current) use of anticoagulants; Z79.899 Other long term (current) drug therapy; Z88.8 Allergy status to other drugs, medicaments and biological substances; W01.190A Fall on same level from slipping, tripping and stumbling with subsequent striking against furniture, initial encounter
CPT/HCPCS: 70450; 93005; 99284

== ENCOUNTER → 2017-12-13 | Outpatient (CLI) | payer MEDICARE, OTHER ==
--- NOTE | 2017-12-13 16:57 | US ---
EXAMINATION TYPE: US kidneys/renal and bladder DATE OF EXAM: 12/13/2017 COMPARISON: CT Chest CLINICAL HISTORY: 82-year-old female N39.0 FREQUENT URINATION,R35.0. Recurrent UTI's, frequent urinat ion TECHNIQUE: Multiple sonographic images of the kidneys and bladder were obtained. Right Kidney: 8.0 x 4.1 x 5.0 cm without hydronephrosis. There is cortical thinning. Left Kidney: 8.0 x 3.5 x 3.6 cm without hydronephrosis. There is cortical thinning with an upper pole cyst measuring 1.4 cm. In the upper pole medially, there is a 3.1 x 1.9 x 2.5 cm lesion with possibl e mural based nodule. No gross abnormality of the partially urine distended bladder. Right Kidney: Small in Size, cortical thinning Left Kidney: Cortical thinning, cyst upper pole= 1.4 x 1.4 x 1.4 cm/ Mixed lesion upper medial pole= 3.1 x 1.9 x 2.5 cm Bladder: wnl Bilateral Jets seen: No There is no evidence for hydronephrosis at this point in time. No nephrolithiasis is seen. No josué s are identified. The urinary bladder is anechoic. Bilateral ureteral jets are seen. IMPRESSION: 1. Small kidneys suggesting chronic medical renal disease. No hydronephrosis. 2. A 3.1 cm cyst in the medial upper pole left kidney may have a mural based soft tissue component. Three-month follow-up is recommended to reassess this area. If the finding persists or increases in s ize, further evaluation for possible cystic RCC would be recommended.
== END | disposition home or self-care (01) ==
LOC: RADUSWWP 14:06
PROVIDERS: ATTEND Urology
DX: N27.1 Small kidney, bilateral (principal); N28.1 Cyst of kidney, acquired; R35.0 Frequency of micturition
CPT/HCPCS: 76770

== ENCOUNTER → 2018-04-01 | Outpatient (CLI) | payer MEDICARE, OTHER ==
--- NOTE | 2018-04-01 16:13 | MR ---
EXAMINATION TYPE: MR shoulder RT wo con DATE OF EXAM: 04/01/2018 COMPARISON: NONE HISTORY: Right shoulder pain, trauma TECHNIQUE: Multiplanar, multisequence imaging of the right shoulder is performed without contrast. FINDINGS: Rotator Cuff: Rotator cuff tear is present, there is retraction of the supraspinatus tendon to the le alo of the acromioclavicular joint. The subscapularis tendon also shows tear with retraction to the l evel of the coracoid. Infraspinatus tendon shows abnormal thickening and increased internal signal. T eres minor tendon shows a normal attachment. Acromioclavicular Joint: Hypertrophic changes present. Glenohumeral Joint: The shoulder is high riding. Fluid signal is present in the subacromial subdeltoi d bursa. Labrum: Marked arthropathy changes present with remodeling of the glenohumeral joint, subchondral elva ctive marrow signal change and geode formation suspected. There may be degenerative labral tear. Biceps Tendon: The long head of biceps is in normal location within bicipital groove. Bone marrow signal: Probable pseudocyst formation present within the humeral head. Other: There is motion on the exam. There may be loose bodies within joint effusion. IMPRESSION: Rotator cuff tear as described. Joint effusion. Many of the findings are without likely to be chronic . Osteoarthritis. Additional findings above.
== END ==
LOC: RADMRIMAIN 14:48
PROVIDERS: ATTEND Internal Medicine Rheumatology
DX: M75.101 Unspecified rotator cuff tear or rupture of right shoulder, not specified as traumatic (principal); M19.011 Primary osteoarthritis, right shoulder

== ENCOUNTER → 2018-04-05 | Outpatient (CLI) | payer MEDICARE, OTHER ==
--- NOTE | 2018-04-05 16:27 | CT ---
EXAMINATION TYPE: CT abdomen wo con DATE OF EXAM: 04/05/2018 COMPARISON: 08/17/2011 CT, ultrasound 12/13/2017 INDICATION: Renal cyst DLP: 117.9 mGycm, Automated exposure control for dose reduction was used. CONTRAST: 0 mL of Isovue 370. Study performed with Oral Contrast TECHNIQUE: Axial images were obtained from above the diaphragm to the pubic rami in the axial plane a t 5 mm thick sections. Reconstructed images are reviewed on the computer in the coronal plane. FINDINGS: Limited CT sections are obtained the lung bases. There is some atelectasis at the right diaphragm. M ild lingular pneumonitis change may present. Dense coronary artery calcifications present. There is a moderate size hiatal hernia present.. CT ABDOMEN: Liver: Normal Spleen: Normal Pancreas: Atrophic Adrenal glands: The adrenal glands are normal. Gallbladder: Surgically absent. Kidneys: No masses are evident. No hydronephrosis is present. There is a 1.5 cm cyst on the lateral left kidney measuring 16 Hounsfield units. This corresponds to the cyst identified on the ultrasound . Delayed images were obtained through the kidneys, which remain unremarkable. Aorta: Vascular calcification is within the aorta. Inferior vena cava: Normal. At the hepatic flexure there may be a filling defect or apple core lesion within the colon. Additiona l workup is recommended. Series 3 image 20. IMPRESSIONS: 1. There is a new exophytic cyst on the lateral left mid kidney measuring 16 Hounsfield units and 1. 5 cm not identified on the previous 2011 CT but present on the 2018 ultrasound. 2. Moderate size hiatal hernia. 3. Atelectasis within the lingula and right lower lobe. Differential could include scarring.
== END | disposition home or self-care (01) ==
LOC: RADCTMAIN 12:21
PROVIDERS: ATTEND Urology
DX: N28.1 Cyst of kidney, acquired (principal); K44.9 Diaphragmatic hernia without obstruction or gangrene
CPT/HCPCS: 74150

== ENCOUNTER 2018-07-22 13:03 | Inpatient (IN) | payer MEDICARE, OTHER ==
[2018-07-22] MEDS ORDERED: ACETAMINOPHEN TAB 500 MG TAB PO STA (13:09)
[2018-07-22] MEDS ORDERED: SODIUM CHLORIDE 0.9% 500 ML IV STA (13:09)
--- NOTE | 2018-07-22 13:31 | ED ---
General Adult HPI - General Chief complaint: Shortness of Breath Stated complaint: ANANYA Time Seen by Provider: 07/22/18 13:05 Source: patient, EMS, RN notes reviewed, old records reviewed Mode of arrival: EMS Limitations: no limitations - History of Present Illness Initial comments: 82-year-old female presents for evaluation of cough and dyspnea. Patient states her symptoms have progressed over the past several days. Denies chest pain. She has had subjective chills and fever. States her cough is nonproductive. Denies abdominal pain or nausea vomiting. She does complain of dysuria. Denies rash. Patient has no history of COPD, she does have history of CAD, no known history of CHF. Denies lower extremity pain or swelling. - Related Data Home Medications Medication Instructions Recorded Confirmed Allopurinol [Zyloprim] 100 mg PO DAILY 03/21/14 07/22/18 Niacin [Niacin ER] 500 mg PO HS 08/17/14 07/22/18 Apixaban [Eliquis] 5 mg PO BID 11/02/14 07/22/18 Metoprolol Tartrate [Lopressor] 50 mg PO DAILY 04/26/15 07/22/18 Melatonin 10 mg PO HS 05/23/15 07/22/18 Methotrexate Sodium [Methotrexate] 10 mg PO FR 05/23/15 07/22/18 Ergocalciferol [Vitamin D2 50,000 unit PO FR 09/05/17 07/22/18 (DRISDOL)] ALPRAZolam [Xanax] 0.25 mg PO QID 12/07/17 07/22/18 Diphenox-Atrop 2.5-0.025 mg 1 tab PO DAILY PRN 12/07/17 07/22/18 [Lomotil] Estradiol [Estrace Cream 0.01%] 1 applic VAGINAL MOWEFR 12/07/17 07/22/18 Ipratropium [place] [Ipratropium 1 spray EA NOSTRIL BID 12/07/17 07/22/18 [place] 0.03%] Levothyroxine Sodium [Synthroid] 137 mcg PO DAILY 12/07/17 07/22/18 Metoclopramide [Reglan] 10 mg PO BID PRN 12/07/17 07/22/18 Potassium Chloride ER [K-Dur 10] 10 meq PO BID 12/07/17 07/22/18 Ranitidine HCl [Zantac] 150 mg PO BID 12/07/17 07/22/18 Temazepam [Restoril] 30 mg PO HS PRN 12/07/17 07/22/18 Tofacitinib Citrate [Xeljanz] 5 mg PO BID 12/07/17 07/22/18 Vit A/Vit C/Vit E/Zinc/Copper 1 cap PO DAILY 12/07/17 07/22/18 [ICAPS SOFTGEL] Calcium Carbonate [Calcium] 600 mg PO DAILY 07/22/18 07/22/18 Denosumab [Prolia] 60 mg SQ Q6M 07/22/18 07/22/18 Donepezil [Aricept] 5 mg PO HS 07/22/18 07/22/18 Folic Acid 0.4 mg PO DAILY 07/22/18 07/22/18 Niacin [Niaspan] 1,000 mg PO DAILY 07/22/18 07/22/18 Nystatin 100,000Unit/gm Cream 1 applic TOPICAL DAILY PRN 07/22/18 07/22/18 [Mycostatin Cream] Pantoprazole [Protonix] 40 mg PO DAILY 07/22/18 07/22/18 Venlafaxine HCl [Effexor XR] 150 mg PO DAILY 07/22/18 07/22/18 cycloSPORINE 0.05% OPHTH SOLN 1 drop BOTH EYES Q12H 07/22/18 07/22/18 [Restasis] Previous Rx's Medication Instructions Recorded Losartan [Cozaar] 25 mg PO DAILY #0 04/30/15 Allergies Allergy/AdvReac Type Severity Reaction Status Date / Time clonazepam [From Klonopin] Allergy Hallucinati Verified 07/22/18 13:49 ons Review of Systems ROS Statement: Those systems with pertinent positive or pertinent negative responses have been documented in the HPI. ROS Other: All systems not noted in ROS Statement are negative. Past Medical History Past Medical History: Atrial Fibrillation, Eye Disorder, GERD/Reflux, Hearing Disorder / Deafness, Memory Impairment, Osteoarthritis (OA), Rheumatoid Arthritis (RA), Thyroid Disorder Additional Past Medical History / Comment(s): HX of MACULAR DEGENERATION, PANCREATITIS, HARD OF HEARING. MYELODYSPLASTIC SYNDROME, BONE MARROW DISEASE, overactive bladder History of Any Multi-Drug Resistant Organisms: None Reported Past Surgical History: Back Surgery, Bariatric Surgery, Cardiac Valve Replacement, Cholecystectomy Additional Past Surgical History / Comment(s): INTESTINAL BYPASS/PROLAPSED RECTUM, TUMMY TUCK, CARDIAC VALVE REPAIR. Past Anesthesia/Blood Transfusion Reactions: No Reported Reaction Additional Past Anesthesia/Blood Transfusion Reaction / Comment(s): PAST BLOOD TRANSFUSION, no problems. Past Psychological History: Anxiety, Depression Smoking Status: Never smoker Past Alcohol Use History: None Reported Past Drug Use History: None Reported - Past Family History Mother Family Medical History: Myocardial Infarction ([place]) Father Family Medical History: Myocardial Infarction ([place]) General Exam Limitations: no limitations General appearance: alert, in no apparent distress Head exam: Present: atraumatic, normocephalic Eye exam: Present: normal appearance, PERRL ENT exam: Present: normal exam Neck exam: Present: normal inspection. Absent: tenderness, meningismus Respiratory exam: Present: rhonchi, decreased breath sounds. Absent: respiratory distress Cardiovascular Exam: Present: regular rate, normal rhythm GI/Abdominal exam: Present: soft. Absent: distended, tenderness Extremities exam: Present: normal inspection, normal capillary refill. Absent: pedal edema Neurological exam: Present: alert, oriented X3. Absent: CN II-XII intact, motor sensory deficit Psychiatric exam: Present: normal affect, normal mood Skin exam: Present: warm, dry, intact. Absent: cyanosis, diaphoretic Course Vital Signs 07/22/18 07/22/18 13:05 14:49 Temperature 103.9 F H 102.2 F H Pulse Rate 89 128 H Respiratory 24 22 Rate Blood Pressure 110/58 119/62 O2 Sat by Pulse 86 L 94 L Oximetry EKG Findings - EKG Comments: EKG Findings:: EKG: Atrial fibrillation, left axis deviation, no ST segment elevation, there is T-wave abnormality in the precordial leads as well as inferior leads. Medical Decision Making - Medical Decision Making 82-year-old female presenting with fever and dyspnea. Patient has history of atrial fibrillation, initial concern is for pneumonia, patient's has cardiomegaly, no focal pneumonia on chest x-ray, normal white blood cell, hemoglobin, mild lactic acidosis is Similac slight abnormalities including hyponatremia and hypomagnesemia. These are replaced in the emergency department. Urinalysis shows large leukocyte esterase with greater with 92 white cells. This may explain patient's fever. She is started on antibiotics awaiting culture results. Case discussed with Dr. Al, who will accept admission. - Lab Data Result diagrams: 07/22/18 13:15 07/22/18 13:15 Lab Results 07/22/18 07/22/18 07/22/18 Range/Units 13:15 13:15 13:15 WBC 8.9 (3.8-10.6) k/uL RBC 3.48 L (3.80-5.40) m/uL Hgb 12.0 (11.4-16.0) gm/dL Hct 37.6 (34.0-46.0) % MCV 108.2 H (80.0-100.0) fL MCH 34.5 (25.0-35.0) pg MCHC 31.9 (31.0-37.0) g/dL RDW 16.6 H (11.5-15.5) % Plt Count 352 (150-450) k/uL Neutrophils % (Manual) 74 % Band Neutrophils % 1 % Lymphocytes % (Manual) 13 % Monocytes % (Manual) 10 % Metamyelocytes % 2 % Myelocytes % 1 % Neutrophils # (Manual) 6.60 (1.3-7.7) k/uL Lymphocytes # (Manual) 1.16 (1.0-4.8) k/uL Monocytes # (Manual) 0.89 (0-1.0) k/uL Metamyelocytes # (Man) 0.18 H (0) k/uL Myelocytes # (Manual) 0.09 H (0) k/uL Nucleated RBCs 0 (0-0) /100 WBC Poikilocytosis (manual Present Anisocytosis Slight Macrocytosis Marked PT (9.0-12.0) sec INR (<1.2) APTT (22.0-30.0) sec Sodium 131 L (137-145) mmol/L Potassium 5.0 (3.5-5.1) mmol/L Chloride 90 L (98-107) mmol/L Carbon Dioxide 27 (22-30) mmol/L Anion Gap 14 mmol/L BUN 17 (7-17) mg/dL Creatinine 0.71 (0.52-1.04) mg/dL Est GFR (CKD-EPI)AfAm >90 (>60 ml/min/1.73 sqM) Est GFR (CKD-EPI)NonAf 81 (>60 ml/min/1.73 sqM) Glucose 87 (74-99) mg/dL Plasma Lactic Acid Tenzin (0.7-2.0) mmol/L Calcium 9.2 (8.4-10.2) mg/dL Magnesium 1.0 L (1.6-2.3) mg/dL Total Bilirubin 0.6 (0.2-1.3) mg/dL AST 43 H (14-36) U/L ALT 37 (9-52) U/L Alkaline Phosphatase 58 (38-126) U/L Total Creatine Kinase 33 (30-135) U/L CK-MB (CK-2) 0.5 (0.0-2.4) ng/mL CK-MB (CK-2) Rel Index 1.5 Troponin I 0.029 (0.000-0.034) ng/mL NT-Pro-B Natriuret Pep pg/mL Total Protein 7.1 (6.3-8.2) g/dL Albumin 4.2 (3.5-5.0) g/dL Urine Color Urine Appearance (Clear) Urine pH (5.0-8.0) Ur Specific [place] (1.001-1.035) Urine Protein (Negative) Urine Glucose (UA) (Negative) Urine Ketones (Negative) Urine Blood (Negative) Urine Nitrite (Negative) Urine Bilirubin (Negative) Urine Urobilinogen (<2.0) mg/dL Ur Leukocyte Esterase (Negative) Urine WBC (0-5) /hpf Urine WBC Clumps (None) /hpf Urine Bacteria (None) /hpf 07/22/18 07/22/18 07/22/18 Range/Units 13:15 13:15 13:15 WBC (3.8-10.6) k/uL RBC (3.80-5.40) m/uL Hgb (11.4-16.0) gm/dL Hct (34.0-46.0) % MCV (80.0-100.0) fL MCH (25.0-35.0) pg MCHC (31.0-37.0) g/dL RDW (11.5-15.5) % Plt Count (150-450) k/uL Neutrophils % (Manual) % Band Neutrophils % % Lymphocytes % (Manual) % Monocytes % (Manual) % Metamyelocytes % % Myelocytes % % Neutrophils # (Manual) (1.3-7.7) k/uL Lymphocytes # (Manual) (1.0-4.8) k/uL Monocytes # (Manual) (0-1.0) k/uL Metamyelocytes # (Man) (0) k/uL Myelocytes # (Manual) (0) k/uL Nucleated RBCs (0-0) /100 WBC Poikilocytosis (manual Anisocytosis Macrocytosis PT 11.9 (9.0-12.0) sec INR 1.3 H (<1.2) APTT 21.0 L (22.0-30.0) sec Sodium (137-145) mmol/L Potassium (3.5-5.1) mmol/L Chloride (98-107) mmol/L Carbon Dioxide (22-30) mmol/L Anion Gap mmol/L BUN (7-17) mg/dL Creatinine (0.52-1.04) mg/dL Est GFR (CKD-EPI)AfAm (>60 ml/min/1.73 sqM) Est GFR (CKD-EPI)NonAf (>60 ml/min/1.73 sqM) Glucose (74-99) mg/dL Plasma Lactic Acid Tenzin 2.4 H* (0.7-2.0) mmol/L Calcium (8.4-10.2) mg/dL Magnesium (1.6-2.3) mg/dL Total Bilirubin (0.2-1.3) mg/dL AST (14-36) U/L ALT (9-52) U/L Alkaline Phosphatase (38-126) U/L Total Creatine Kinase (30-135) U/L CK-MB (CK-2) (0.0-2.4) ng/mL CK-MB (CK-2) Rel Index Troponin I (0.000-0.034) ng/mL NT-Pro-B Natriuret Pep 4000 pg/mL Total Protein (6.3-8.2) g/dL Albumin (3.5-5.0) g/dL Urine Color Urine Appearance (Clear) Urine pH (5.0-8.0) Ur Specific [place] (1.001-1.035) Urine Protein (Negative) Urine Glucose (UA) (Negative) Urine Ketones (Negative) Urine Blood (Negative) Urine Nitrite (Negative) Urine Bilirubin (Negative) Urine Urobilinogen (<2.0) mg/dL Ur Leukocyte Esterase (Negative) Urine WBC (0-5) /hpf Urine WBC Clumps (None) /hpf Urine Bacteria (None) /hpf 07/22/18 Range/Units 15:18 WBC (3.8-10.6) k/uL RBC (3.80-5.40) m/uL Hgb (11.4-16.0) gm/dL Hct (34.0-46.0) % MCV (80.0-100.0) fL MCH (25.0-35.0) pg MCHC (31.0-37.0) g/dL RDW (11.5-15.5) % Plt Count (150-450) k/uL Neutrophils % (Manual) % Band Neutrophils % % Lymphocytes % (Manual) % Monocytes % (Manual) % Metamyelocytes % % Myelocytes % % Neutrophils # (Manual) (1.3-7.7) k/uL Lymphocytes # (Manual) (1.0-4.8) k/uL Monocytes # (Manual) (0-1.0) k/uL Metamyelocytes # (Man) (0) k/uL Myelocytes # (Manual) (0) k/uL Nucleated RBCs (0-0) /100 WBC Poikilocytosis (manual Anisocytosis Macrocytosis PT (9.0-12.0) sec INR (<1.2) APTT (22.0-30.0) sec Sodium (137-145) mmol/L Potassium (3.5-5.1) mmol/L Chloride (98-107) mmol/L Carbon Dioxide (22-30) mmol/L Anion Gap mmol/L BUN (7-17) mg/dL Creatinine (0.52-1.04) mg/dL Est GFR (CKD-EPI)AfAm (>60 ml/min/1.73 sqM) Est GFR (CKD-EPI)NonAf (>60 ml/min/1.73 sqM) Glucose (74-99) mg/dL Plasma Lactic Acid Tenzin (0.7-2.0) mmol/L Calcium (8.4-10.2) mg/dL Magnesium (1.6-2.3) mg/dL Total Bilirubin (0.2-1.3) mg/dL AST (14-36) U/L ALT (9-52) U/L Alkaline Phosphatase (38-126) U/L Total Creatine Kinase (30-135) U/L CK-MB (CK-2) (0.0-2.4) ng/mL CK-MB (CK-2) Rel Index Troponin I (0.000-0.034) ng/mL NT-Pro-B Natriuret Pep pg/mL Total Protein (6.3-8.2) g/dL Albumin (3.5-5.0) g/dL Urine Color Yellow Urine Appearance Cloudy H (Clear) Urine pH 5.5 (5.0-8.0) Ur Specific [place] 1.013 (1.001-1.035) Urine Protein 1+ H (Negative) Urine Glucose (UA) Negative (Negative) Urine Ketones Negative (Negative) Urine Blood Trace H (Negative) Urine Nitrite Negative (Negative) Urine Bilirubin Negative (Negative) Urine Urobilinogen <2.0 (<2.0) mg/dL Ur Leukocyte Esterase Large H (Negative) Urine WBC 92 H (0-5) /hpf Urine WBC Clumps Rare H (None) /hpf Urine Bacteria Occasional H (None) /hpf Disposition Clinical Impression: Sepsis secondary to UTI, AF (paroxysmal atrial fibrillation) Disposition: ADMITTED IP TO THIS HOSP Condition: Stable Is patient prescribed a controlled substance at d/c from ED?: No Referrals: Ariadne Henderson MD [Primary Care Provider] - 1-2 days Decision to Admit Reason: Admit from EC Decision Date: 07/22/18 Decision Time: 15:58
--- NOTE | 2018-07-22 13:51 | XR ---
EXAMINATION TYPE: XR chest 2V DATE OF EXAM: 07/22/2018 COMPARISON: Prior chest x-ray September 05, 2017. HISTORY: Difficulty in breathing. TECHNIQUE: Frontal and lateral views of the chest are obtained. FINDINGS: Overlying sternal wires and mediastinal clips are redemonstrated. There are persistent meta llic cardiac valvular rings. There is chronic parenchymal change with right basilar and left infrahil ar scarring redemonstrated. There are surgical clips right suprahilar region redemonstrated. There is no new suspicious focal air space opacity, pleural effusion, or pneumothorax seen. The cardiac silh ouette size remains enlarged with atherosclerotic and ectatic thoracic aorta. The osseous structure s remain demineralized. High riding right humeral head consistent with chronic rotator cuff tears red emonstrated. Underlying scoliosis is noted. Cholecystectomy clips are again seen. IMPRESSION: Chronic changes and cardiomegaly without acute pulmonary process.
[2018-07-22 13:52] LABS: ALT 37 U/L (9-52); AST 43 U/L (14-36); Albumin 4.2 g/dL (3.5-5.0); Alkaline Phosphatase 58 U/L (38-126); Anion Gap 14 mmol/L; Blood Urea Nitrogen 17 mg/dL (7-17); Calcium 9.2 mg/dL (8.4-10.2); Carbon Dioxide 27 mmol/L (22-30); Chloride 90 mmol/L (98-107); Glucose 87 mg/dL (74-99); Sodium 131 mmol/L (137-145); Total Bilirubin 0.6 mg/dL (0.2-1.3); Total Protein 7.1 g/dL (6.3-8.2)
[2018-07-22 13:58] LABS: Anisocytosis Slight; HCT 37.6 % (34.0-46.0); MCH 34.5 pg (25.0-35.0); MCHC 31.9 g/dL (31.0-37.0); MCV 108.2 fL (80.0-100.0); Macrocytosis Marked; Mean Platelet Volume 7.6; Platelet Count 352 k/uL (150-450); RBC 3.48 m/uL (3.80-5.40); RDW 16.6 % (11.5-15.5); WBC 8.9 k/uL (3.8-10.6)
[2018-07-22 14:17] LABS: INR 1.3 (<1.2); Prothrombin Time 11.9 sec (9.0-12.0)
[2018-07-22 14:18] LABS: Creatine Kinase MB 0.5 ng/mL (0.0-2.4); Troponin I 0.029 ng/mL (0.000-0.034)
[2018-07-22 14:45] LABS: Band Neutrophils % 1 %; Lymphocytes # (M) 1.16 k/uL (1.0-4.8); Metamyelocytes # (M) 0.18 k/uL (0); Metamyelocytes % 2 %; Monocytes # (M) 0.89 k/uL (0-1.0); Myelocytes # (M) 0.09 k/uL (0); Myelocytes % 1 %; Neutrophils % (M) 74 %; Nucleated Red Blood Cells 0 /100 WBC (0-0); Poikilocytosis (M) Present; Total Cells Counted 200
[2018-07-22] MEDS ORDERED: KETOROLAC 30 MG/ML 1 ML VIAL IVP STA (14:50)
[2018-07-22] MEDS ORDERED: cefTRIAXone 2,000 MG in SODIUM CHLORIDE 0.9% 100 ML IVPB STA (14:52)
[2018-07-22 15:44] LABS: Appearance,Urine Cloudy (Clear); Bacteria,Urine Occasional /hpf; Bilirubin,Urine Negative (Negative); Blood,Urine Trace (Negative); Color,Urine Yellow; Glucose,Urine (UA) Negative (Negative); Ketones,Urine Negative (Negative); Leukocyte Esterase,Urine Large (Negative); Nitrite,Urine Negative (Negative); PH, Urine 5.5 (5.0-8.0); Protein,Urine 1+ (Negative); Specific Gravity,Urine 1.013 (1.001-1.035); Urobilinogen,Urine <2.0 mg/dL (<2.0); WBC,Urine 92 /hpf (0-5)
[2018-07-22] MEDS ORDERED: NALOXONE 0.4 MG/ML 1 ML VIAL IV PRN (15:50)
[2018-07-22] MEDS ORDERED: DILTIAZEM DRIP BOLUS FROM BAG 1 MG SOLN IV ONE (16:20)
[2018-07-22] MEDS: MAGNESIUM SULFATE-D5W PMX 1 GM in DEXTROSE/WATER 1 100ML.BAG IVPB SCH ×2 (16:56→18:34)
[2018-07-22] MEDS: DILTIAZEM 50 MG in SODIUM CHLORIDE 0.9% 40 ML IV SCH ×2 (17:44→23:28)
[2018-07-22] MEDS: ACETAMINOPHEN TAB 325 MG TAB PO PRN (17:49)
[2018-07-22] MEDS ORDERED: METOCLOPRAMIDE 10 MG TAB PO PRN (18:11)
[2018-07-22] MEDS ORDERED: NYSTATIN 100,000UNIT/GM CREAM 30 GM TUBE TOPICAL PRN (18:11)
[2018-07-22] MEDS ORDERED: ERGOCALCIFEROL 50,000 UNIT CAP PO SCH (18:15)
[2018-07-22] MEDS ORDERED: METHOTREXATE SODIUM 2.5 MG TAB PO SCH (18:15)
[2018-07-22] MEDS ORDERED: ESTRADIOL 0.1 MG/GM VAGINAL CREAM 42.5 GM TUBE VAGINAL SCH (21:00)
[2018-07-22] MEDS ORDERED: TEMAZEPAM 30 MG CAP PO PRN (22:26)
--- NOTE | 2018-07-22 22:49 | P.HPIM ---
History of Present Illness H&P Date: 07/22/18 Chief Complaint: Fever and shakiness Patient is a 82-year-old female with known history of atrial fibrillation, history of cardiac valve repair, GERD, memory impairment/hearing disorder, rheumatoid arthritis and hypothyroidism came to ER with complaints of shortness of breath started around 9 AM this morning. Patient also having cough for the past 2 days. Patient says that she woke up with these symptoms. Otherwise patient denied any chest pain. No nausea vomiting or abdominal pain. No diarrhea. Patient has been having dysuria which has been present for a long time. No history of smoking. Patient says that she had nodules in the bladder but she is not following with urologist currently due to incidence issues. Chest x-ray showed chronic changes. Cardiomegaly and no acute cardiopulmonary process otherwise BNP 4000 EKG showed atrial fibrillation. Lactic acid 2.4 UA positive for infection T-max 103.9 Review of Systems Constitutional: Fever and chills . No generalized weakness or weight loss. Abdomen: Patient denied nausea vomiting and diarrhea and abdominal pain. Cardiovascular: Patient denies any chest pain or short of breath no palpitations. Respiratory: Cough without sputum production. No shortness of breath Neurologic: Patient denied any numbness or tingling headache. Musculoskeletal: Patient denies any complaints of joint swelling or deformity. Skin: Negative Psychiatric: Negative Endocrine: No heat or cold intolerance. No recent weight gain. Genitourinary: No dysuria or hematuria. All other 14 point ROS negative except the above Past Medical History Past Medical History: Atrial Fibrillation, Eye Disorder, GERD/Reflux, Hearing Disorder / Deafness, Memory Impairment, Osteoarthritis (OA), Rheumatoid Arthritis (RA), Thyroid Disorder Additional Past Medical History / Comment(s): HX of MACULAR DEGENERATION, PANCREATITIS, HARD OF HEARING. MYELODYSPLASTIC SYNDROME, BONE MARROW DISEASE, overactive bladder History of Any Multi-Drug Resistant Organisms: None Reported Past Surgical History: Back Surgery, Bariatric Surgery, Cardiac Valve Replacement, Cholecystectomy Additional Past Surgical History / Comment(s): INTESTINAL BYPASS/PROLAPSED RECTUM, TUMMY TUCK, CARDIAC VALVE REPAIR. Past Anesthesia/Blood Transfusion Reactions: No Reported Reaction Additional Past Anesthesia/Blood Transfusion Reaction / Comment(s): PAST BLOOD TRANSFUSION, no problems. Past Psychological History: Anxiety, Depression Smoking Status: Never smoker Past Alcohol Use History: None Reported Past Drug Use History: None Reported - Past Family History Mother Family Medical History: Myocardial Infarction ([place]) Father Family Medical History: Myocardial Infarction ([place]) Medications and Allergies Home Medications Medication Instructions Recorded Confirmed Type Allopurinol [Zyloprim] 100 mg PO DAILY 03/21/14 07/22/18 History Niacin [Niacin ER] 500 mg PO HS 08/17/14 07/22/18 History Apixaban [Eliquis] 5 mg PO BID 11/02/14 07/22/18 History Metoprolol Tartrate [Lopressor] 50 mg PO DAILY 04/26/15 07/22/18 History Losartan [Cozaar] 25 mg PO DAILY #0 04/30/15 07/22/18 Rx Melatonin 10 mg PO HS 05/23/15 07/22/18 History Methotrexate Sodium [Methotrexate] 10 mg PO FR 05/23/15 07/22/18 History Ergocalciferol [Vitamin D2 50,000 unit PO FR 09/05/17 07/22/18 History (DRISDOL)] ALPRAZolam [Xanax] 0.25 mg PO QID 12/07/17 07/22/18 History Diphenox-Atrop 2.5-0.025 mg 1 tab PO DAILY PRN 12/07/17 07/22/18 History [Lomotil] Estradiol [Estrace Cream 0.01%] 1 applic VAGINAL MOWEFR 12/07/17 07/22/18 History Ipratropium [place] [Ipratropium 1 spray EA NOSTRIL BID 12/07/17 07/22/18 History [place] 0.03%] Levothyroxine Sodium [Synthroid] 137 mcg PO DAILY 12/07/17 07/22/18 History Metoclopramide [Reglan] 10 mg PO BID PRN 12/07/17 07/22/18 History Potassium Chloride ER [K-Dur 10] 10 meq PO BID 12/07/17 07/22/18 History Ranitidine HCl [Zantac] 150 mg PO BID 12/07/17 07/22/18 History Temazepam [Restoril] 30 mg PO HS PRN 12/07/17 07/22/18 History Tofacitinib Citrate [Xeljanz] 5 mg PO BID 12/07/17 07/22/18 History Vit A/Vit C/Vit E/Zinc/Copper 1 cap PO DAILY 12/07/17 07/22/18 History [ICAPS SOFTGEL] Calcium Carbonate [Calcium] 600 mg PO DAILY 07/22/18 07/22/18 History Denosumab [Prolia] 60 mg SQ Q6M 07/22/18 07/22/18 History Donepezil [Aricept] 5 mg PO HS 07/22/18 07/22/18 History Folic Acid 0.4 mg PO DAILY 07/22/18 07/22/18 History Niacin [Niaspan] 1,000 mg PO DAILY 07/22/18 07/22/18 History Nystatin 100,000Unit/gm Cream 1 applic TOPICAL DAILY PRN 07/22/18 07/22/18 History [Mycostatin Cream] Pantoprazole [Protonix] 40 mg PO DAILY 07/22/18 07/22/18 History Venlafaxine HCl [Effexor XR] 150 mg PO DAILY 07/22/18 07/22/18 History cycloSPORINE 0.05% OPHTH SOLN 1 drop BOTH EYES Q12H 07/22/18 07/22/18 History [Restasis] Allergies Allergy/AdvReac Type Severity Reaction Status Date / Time clonazepam [From Klonopin] Allergy Hallucinati Verified 07/22/18 13:49 ons Physical Exam Vitals: Vital Signs Temp Pulse Resp BP Pulse Ox 07/22/18 17:42 100.1 F H 126 H 22 101/56 91 L 07/22/18 14:49 102.2 F H 128 H 22 119/62 94 L 07/22/18 13:05 103.9 F H 89 24 110/58 86 L Intake and Output 07/22/18 07/22/18 07/22/18 06:59 14:59 22:59 Intake Total 0 Balance 0 Intake: Intake, IV Titration 0 Amount Diltiazem 50 mg In Sodium 0 Chloride 0.9% 40 ml @ 5 MG/HR 5 mls/hr IV .Q10H [facility] Rx#:[id number] Other: Weight 54.431 kg PHYSICAL EXAMINATION: Patient is lying in the bed comfortably, no acute distress, awake alert and oriented.. HEENT: Normocephalic. Neck is supple. Pupils reactive. Nostrils clear. Oral cavity is moist. Ears reveal no drainage. Neck reveals no JVD, carotid bruits, or thyromegaly. CHEST EXAMINATION: Trachea is central. Symmetrical expansion. Bibasilar minimal crackles. No wheezing. Lung clifford clear to auscultation and percussion. CARDIAC: Normal S1, S2 with no gallops. No murmurs ABDOMEN: Soft. Bowel sounds normal. No organomegaly. No abdominal bruits. Extremities: reveal no edema. No clubbing or cyanosis Neurologically awake, alert, oriented x3 with well-coordinated movements. No focal deficits noted Skin: No rash or skin lesions. Psychiatric: Coperative. Nonsuicidal Musculoskeletal: No joint swelling or deformity. Normal range of motion. Results CBC & Chem 7: 07/22/18 13:15 07/22/18 13:15 Labs: Abnormal Lab Results - Last 24 Hours (Table) 07/22/18 07/22/18 07/22/18 Range/Units 13:15 13:15 13:15 RBC 3.48 L (3.80-5.40) m/uL MCV 108.2 H (80.0-100.0) fL RDW 16.6 H (11.5-15.5) % Metamyelocytes # (Man) 0.18 H (0) k/uL Myelocytes # (Manual) 0.09 H (0) k/uL INR (<1.2) APTT (22.0-30.0) sec Sodium 131 L (137-145) mmol/L Chloride 90 L (98-107) mmol/L Plasma Lactic Acid Tenzin 2.4 H* (0.7-2.0) mmol/L Magnesium 1.0 L (1.6-2.3) mg/dL AST 43 H (14-36) U/L Urine Appearance (Clear) Urine Protein (Negative) Urine Blood (Negative) Ur Leukocyte Esterase (Negative) Urine WBC (0-5) /hpf Urine WBC Clumps (None) /hpf Urine Bacteria (None) /hpf 07/22/18 07/22/18 Range/Units 13:15 15:18 RBC (3.80-5.40) m/uL MCV (80.0-100.0) fL RDW (11.5-15.5) % Metamyelocytes # (Man) (0) k/uL Myelocytes # (Manual) (0) k/uL INR 1.3 H (<1.2) APTT 21.0 L (22.0-30.0) sec Sodium (137-145) mmol/L Chloride (98-107) mmol/L Plasma Lactic Acid Tenzin (0.7-2.0) mmol/L Magnesium (1.6-2.3) mg/dL AST (14-36) U/L Urine Appearance Cloudy H (Clear) Urine Protein 1+ H (Negative) Urine Blood Trace H (Negative) Ur Leukocyte Esterase Large H (Negative) Urine WBC 92 H (0-5) /hpf Urine WBC Clumps Rare H (None) /hpf Urine Bacteria Occasional H (None) /hpf Thrombosis Risk Factor Assmnt - DVT/VTE Prophylaxis DVT/VTE Prophylaxis: Pharmacologic Prophylaxis ordered Assessment and Plan Assessment: Acute urinary tract infection. Sepsis secondary to UTI. Tachycardia fever and lactic acidosis Chronic atrial fibrillation with RVR. On oral anticoagulation at home. GERD Osteoarthritis Rheumatoid arthritis Hypothyroidism Macular degeneration history Hard of hearing Myelodysplastic syndrome Overactive bladder History of cardiac valve replacement. Anxiety/depression DVT prophylaxis Plan: Patient will be continued on antibiotics in the form of ceftriaxone and IV fluids. Repeat lactic acid level. Follow-up urine culture reports. We will start back on home medications including metoprolol. Patient was started on Cardizem drip due to RVR. Further recommendations based on the clinical course. Prognosis is guarded. Discussed with her daughter at bedside in detail. Time with Patient: Greater than 30
[2018-07-22] MEDS: MELATONIN 5 MG TABLET PO SCH (23:30)
[2018-07-22] MEDS: DONEPEZIL 5 MG TAB PO SCH (23:31)
[2018-07-22] MEDS: cycloSPORINE 0.05% OPHTH 0.4 ML DROPERETTE BOTH EYES SCH (23:31)
[2018-07-22] MEDS: APIXABAN 5 MG TAB PO SCH (23:32)
[2018-07-22] MEDS: FAMOTIDINE 20 MG TAB PO SCH (23:32)
[2018-07-22] MEDS: POTASSIUM CHLORIDE ER 10 MEQ TAB.ER.PRT PO SCH (23:33)
[2018-07-23] MEDS: ALPRAZolam 0.25 MG TAB PO SCH ×5 (00:14→21:20)
[2018-07-23] MEDS: TEMAZEPAM 15 MG CAP PO PRN ×2 (00:27→21:24)
[2018-07-23] MEDS: ACETAMINOPHEN TAB 325 MG TAB PO PRN ×2 (03:02→23:31)
[2018-07-23] MEDS: XELJANZ 5 MG PO SCH ×2 (04:23→14:32)
[2018-07-23] MEDS: IBUPROFEN 400 MG TAB PO PRN ×2 (05:47→19:07)
[2018-07-23] MEDS: LEVOTHYROXINE 137 MCG TAB PO SCH ×2 (05:50→05:52)
[2018-07-23] MEDS: cycloSPORINE 0.05% OPHTH 0.4 ML DROPERETTE BOTH EYES SCH ×2 (05:54→19:11)
[2018-07-23 06:32] LABS: Anisocytosis Slight; Basophils % (A) 0 %; Eosinophils % (A) 0 %; HCT 32.4 % (34.0-46.0); HGB 10.2 gm/dL (11.4-16.0); Hypochromasia Slight; Lymphocytes # (A) 0.4 k/uL (1.0-4.8); Lymphocytes % (A) 4 %; MCH 34.6 pg (25.0-35.0); MCHC 31.6 g/dL (31.0-37.0); MCV 109.3 fL (80.0-100.0); Macrocytosis Marked; Mean Platelet Volume 7.3; Monocytes # (A) 0.3 k/uL (0-1.0); Monocytes % (A) 3 %; Neutrophils # (A) 8.8 k/uL (1.3-7.7); Neutrophils % (A) 91 %; Platelet Count 251 k/uL (150-450); RBC 2.96 m/uL (3.80-5.40); RDW 16.2 % (11.5-15.5); WBC 9.7 k/uL (3.8-10.6)
[2018-07-23] MEDS: DILTIAZEM 50 MG in SODIUM CHLORIDE 0.9% 40 ML IV SCH ×2 (06:39→10:05)
[2018-07-23 06:58] LABS: Anion Gap 7 mmol/L; Blood Urea Nitrogen 14 mg/dL (7-17); Calcium 7.9 mg/dL (8.4-10.2); Carbon Dioxide 27 mmol/L (22-30); Chloride 97 mmol/L (98-107); Glucose 81 mg/dL (74-99); Magnesium 1.6 mg/dL (1.6-2.3); Potassium 4.5 mmol/L (3.5-5.1); Sodium 131 mmol/L (137-145)
[2018-07-23] MEDS: CALCIUM CARBONATE 500 MG CHEWABLE PO SCH (10:02)
[2018-07-23] MEDS: APIXABAN 5 MG TAB PO SCH ×2 (10:02→21:22)
[2018-07-23] MEDS: ALLOPURINOL 100 MG TAB PO SCH (10:02)
[2018-07-23] MEDS: METOPROLOL TARTRATE 50 MG TAB PO SCH (10:03)
[2018-07-23] MEDS: FOLIC ACID 1 MG TAB PO SCH (10:03)
[2018-07-23] MEDS: FAMOTIDINE 20 MG TAB PO SCH ×2 (10:03→21:21)
[2018-07-23] MEDS: VENLAFAXINE HCL ER 150 MG CAP PO SCH (10:04)
[2018-07-23] MEDS: POTASSIUM CHLORIDE ER 10 MEQ TAB.ER.PRT PO SCH ×2 (10:04→21:21)
[2018-07-23] MEDS: VIT A,C & E-LUTEIN-MINERALS 1 EACH TAB PO SCH (10:04)
[2018-07-23] MEDS ORDERED: SODIUM CHLORIDE 0.9% 500 ML IV ONE (12:40)
[2018-07-23] MEDS ORDERED: MAGNESIUM SULFATE-D5W PMX 1 GM in DEXTROSE/WATER 1 100ML.BAG IVPB ONE (12:41)
[2018-07-23] MEDS: DONEPEZIL 5 MG TAB PO SCH (21:21)
[2018-07-23] MEDS: MELATONIN 5 MG TABLET PO SCH (21:21)
[2018-07-23] MEDS: XELJANZ 11 MG PO SCH (21:21)
[2018-07-24] MEDS: cycloSPORINE 0.05% OPHTH 0.4 ML DROPERETTE BOTH EYES SCH ×2 (06:46→22:36)
[2018-07-24 06:52] LABS: Anisocytosis Slight; Basophils % (A) 0 %; Eosinophils % (A) 0 %; HCT 32.6 % (34.0-46.0); HGB 10.1 gm/dL (11.4-16.0); Hypochromasia Slight; Lymphocytes # (A) 0.4 k/uL (1.0-4.8); Lymphocytes % (A) 5 %; MCH 34.9 pg (25.0-35.0); MCV 112.7 fL (80.0-100.0); Macrocytosis Marked; Mean Platelet Volume 7.4; Monocytes # (A) 0.3 k/uL (0-1.0); Monocytes % (A) 4 %; Neutrophils # (A) 6.6 k/uL (1.3-7.7); Neutrophils % (A) 89 %; Platelet Count 231 k/uL (150-450); RDW 16.8 % (11.5-15.5); WBC 7.4 k/uL (3.8-10.6)
[2018-07-24 07:08] LABS: Anion Gap 7 mmol/L; Blood Urea Nitrogen 15 mg/dL (7-17); Carbon Dioxide 25 mmol/L (22-30); Chloride 102 mmol/L (98-107); Glucose 94 mg/dL (74-99); Magnesium 1.8 mg/dL (1.6-2.3); Potassium 5.2 mmol/L (3.5-5.1); Sodium 134 mmol/L (137-145)
[2018-07-24 08:00] LABS: Polychromasia Present; Toxic Vacuolation Present
[2018-07-24 08:01] LABS: Large Platelets Present
[2018-07-24] MEDS: ALPRAZolam 0.25 MG TAB PO SCH ×4 (08:25→21:07)
[2018-07-24] MEDS: XELJANZ 11 MG PO SCH (08:25)
[2018-07-24] MEDS: CALCIUM CARBONATE 500 MG CHEWABLE PO SCH (08:25)
[2018-07-24] MEDS: POTASSIUM CHLORIDE ER 10 MEQ TAB.ER.PRT PO SCH (08:26)
[2018-07-24] MEDS: FOLIC ACID 1 MG TAB PO SCH (08:26)
[2018-07-24] MEDS: FAMOTIDINE 20 MG TAB PO SCH ×2 (08:26→21:08)
[2018-07-24] MEDS: VENLAFAXINE HCL ER 150 MG CAP PO SCH (08:26)
[2018-07-24] MEDS: VIT A,C & E-LUTEIN-MINERALS 1 EACH TAB PO SCH (08:27)
[2018-07-24] MEDS: ALLOPURINOL 100 MG TAB PO SCH (08:27)
[2018-07-24] MEDS: APIXABAN 5 MG TAB PO SCH ×2 (08:27→21:08)
[2018-07-24] MEDS: METOPROLOL TARTRATE 50 MG TAB PO SCH (08:27)
[2018-07-24] MEDS: predniSONE 10 MG TAB PO SCH (08:27)
[2018-07-24 10:43] LABS: T4, Free (Free Thyroxine) 1.71 ng/dL (0.78-2.19)
--- NOTE | 2018-07-24 11:58 | ECHOF ---
Referral Reason:Dyspnea MEASUREMENTS -------- HEIGHT: 149.9 cm WEIGHT: 54.0 kg BP: 144/61 IVSd: 0.9 cm (0.6 - 1.1) LVIDd: 2.4 cm (3.9 - 5.3) LVPWd: 0.9 cm (0.6 - 1.1) IVSs: 1.2 cm LVIDs: 1.2 cm LVPWs: 1.2 cm LAESV Index (A-L): 76.43 ml/m Ao Diam: 3.2 cm (2.0 - 3.7) AV Cusp: 1.6 cm (1.5 - 2.6) LA Diam: 4.5 cm (2.7 - 3.8) MV E Mitchell: 1.45 m/s MV DecT: 213 ms MV A Mitchell: 0.01 m/s MV E/A Ratio: 107.00 RAP: 5.00 mmHg RVSP: 36.83 mmHg FINDINGS -------- Atrial fibrillation. This was a technically adequate study. The left ventricular size is normal. Left ventricular wall thickness is normal. Overall left vent ricular systolic function is normal with, an EF between 55 - 60 %. The right ventricle is normal in size and function. LA is severely dilated >40 ml/m2 The right atrium is markedly enlarged. The aortic valve is trileaflet, and appears structurally normal. No aortic stenosis or regurgitation. There is trace to mild mitral regurgitation. Mitral ring annulloplasty is in place. Mild tricuspid regurgitation present. There is borderline pulmonary hypertension. The right ventr icular systolic pressure, as measured by Doppler, is 36.83mmHg. Trace/mild (physiologic) pulmonic regurgitation. The aortic root size is normal. Normal inferior vena cava with normal inspiratory collapse consistent with estimated right atrial pre ssure of 5 mmHg. There is no pericardial effusion. CONCLUSIONS -------- 1. Atrial fibrillation. 2. This was a technically adequate study. 3. The left ventricular size is normal. 4. Left ventricular wall thickness is normal. 5. Overall left ventricular systolic function is normal with, an EF between 55 - 60 %. 6. LA is severely dilated >40 ml/m2 7. The right atrium is markedly enlarged. 8. The aortic valve is trileaflet, and appears structurally normal. No aortic stenosis or regurgitati on. 9. There is trace to mild mitral regurgitation. 10. Mitral ring annulloplasty is in place. 11. Mild tricuspid regurgitation present. 12. There is borderline pulmonary hypertension. 13. The right ventricular systolic pressure, as measured by Doppler, is 36.83mmHg. 14. Trace/mild (physiologic) pulmonic regurgitation. 15. The aortic root size is normal. 16. There is no pericardial effusion. STRUCTURED CABLING TECHNICIAN: Francisco Aburto RDCS
--- NOTE | 2018-07-24 12:25 | P.CRDCN ---
History of Present Illness Consult date: 07/24/18 Consult reason: atrial fibrillation History of present illness: This is a 82-year-old female patient who presents emergency department because of fever and chills as well as weakness for the last 4 days. The patient also admits to a minor cough that is nonproductive. The patient was found to have evidence of sepsis with urinary tract infection and is currently on IV antibody therapy. She was also found to be in atrial fibrillation with rapid ventricular response. She was initially started on a Cardizem drip and her heart rate is now controlled. She was started back on her home dose of Lopressor. Her heart rate is not optimally controlled and we will make adjustments accordingly. 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 She follows with Dr. Quesada on a regular basis. She also has history of chronic atrial fibrillation and is being treated with beta ahsan and anticoagulant. She seen sitting up in a chair she's in no acute distress. Denies any chest discomfort, shortness breath or palpitations. Remains in an atrial fibrillation with a heart rate 2095 and 105. Review of Systems All systems: negative Constitutional: Reports as per HPI Past Medical History Past Medical History: Atrial Fibrillation, Eye Disorder, GERD/Reflux, Hearing Disorder / Deafness, Memory Impairment, Osteoarthritis (OA), Rheumatoid Arthritis (RA), Thyroid Disorder Additional Past Medical History / Comment(s): HX of MACULAR DEGENERATION, PANCREATITIS, HARD OF HEARING. MYELODYSPLASTIC SYNDROME, BONE MARROW DISEASE, overactive bladder History of Any Multi-Drug Resistant Organisms: None Reported Past Surgical History: Back Surgery, Bariatric Surgery, Cardiac Valve Replacement, Cholecystectomy Additional Past Surgical History / Comment(s): INTESTINAL BYPASS/PROLAPSED RECTUM, TUMMY TUCK, CARDIAC VALVE REPAIR. Past Anesthesia/Blood Transfusion Reactions: No Reported Reaction Additional Past Anesthesia/Blood Transfusion Reaction / Comment(s): PAST BLOOD TRANSFUSION, no problems. Past Psychological History: Anxiety, Depression Smoking Status: Never smoker Past Alcohol Use History: None Reported Past Drug Use History: None Reported - Past Family History Mother Family Medical History: Myocardial Infarction (VT) Father Family Medical History: Myocardial Infarction (VT) Medications and Allergies Home Medications Medication Instructions Recorded Confirmed Type Allopurinol [Zyloprim] 100 mg PO DAILY 03/21/14 07/22/18 History Niacin [Niacin ER] 500 mg PO HS 08/17/14 07/22/18 History Apixaban [Eliquis] 5 mg PO BID 11/02/14 07/22/18 History Metoprolol Tartrate [Lopressor] 50 mg PO DAILY 04/26/15 07/22/18 History Losartan [Cozaar] 25 mg PO DAILY #0 04/30/15 07/22/18 Rx Melatonin 10 mg PO HS 05/23/15 07/22/18 History Methotrexate Sodium [Methotrexate] 10 mg PO FR 05/23/15 07/22/18 History Ergocalciferol [Vitamin D2 50,000 unit PO FR 09/05/17 07/22/18 History (DRISDOL)] ALPRAZolam [Xanax] 0.25 mg PO QID 12/07/17 07/22/18 History Diphenox-Atrop 2.5-0.025 mg 1 tab PO DAILY PRN 12/07/17 07/22/18 History [Lomotil] Estradiol [Estrace Cream 0.01%] 1 applic VAGINAL MOWEFR 12/07/17 07/22/18 History Ipratropium [place] [Ipratropium 1 spray EA NOSTRIL BID 12/07/17 07/22/18 History [place] 0.03%] Levothyroxine Sodium [Synthroid] 137 mcg PO DAILY 12/07/17 07/22/18 History Metoclopramide [Reglan] 10 mg PO BID PRN 12/07/17 07/22/18 History Potassium Chloride ER [K-Dur 10] 10 meq PO BID 12/07/17 07/22/18 History Ranitidine HCl [Zantac] 150 mg PO BID 12/07/17 07/22/18 History Temazepam [Restoril] 30 mg PO HS PRN 12/07/17 07/22/18 History Tofacitinib Citrate [Xeljanz] 5 mg PO BID 12/07/17 07/22/18 History Vit A/Vit C/Vit E/Zinc/Copper 1 cap PO DAILY 12/07/17 07/22/18 History [ICAPS SOFTGEL] Calcium Carbonate [Calcium] 600 mg PO DAILY 07/22/18 07/22/18 History Denosumab [Prolia] 60 mg SQ Q6M 07/22/18 07/22/18 History Donepezil [Aricept] 5 mg PO HS 07/22/18 07/22/18 History Folic Acid 0.4 mg PO DAILY 07/22/18 07/22/18 History Niacin [Niaspan] 1,000 mg PO DAILY 07/22/18 07/22/18 History Nystatin 100,000Unit/gm Cream 1 applic TOPICAL DAILY PRN 07/22/18 07/22/18 History [Mycostatin Cream] Pantoprazole [Protonix] 40 mg PO DAILY 07/22/18 07/22/18 History Venlafaxine HCl [Effexor XR] 150 mg PO DAILY 07/22/18 07/22/18 History cycloSPORINE 0.05% OPHTH SOLN 1 drop BOTH EYES Q12H 07/22/18 07/22/18 History [Restasis] predniSONE 10 mg PO DAILY 07/23/18 07/23/18 History Allergies Allergy/AdvReac Type Severity Reaction Status Date / Time clonazepam [From Klonopin] Allergy Hallucinati Verified 07/22/18 13:49 ons Physical Exam Vitals: Vital Signs Temp Pulse Resp BP Pulse Ox 07/24/18 08:00 97.3 F L 102 H 18 110/70 97 07/24/18 04:00 97.2 F L 93 18 110/56 98 07/24/18 00:00 90 20 07/23/18 23:28 100.9 F H 100 20 112/60 98 07/23/18 20:00 98.5 F 99 20 117/72 95 07/23/18 16:00 97.9 F 98 16 111/67 93 L Intake and Output 07/23/18 07/24/18 07/24/18 22:59 06:59 14:59 Intake Total 504 Output Total 125 Balance 379 Intake: Oral 504 Output: Urine 125 Other: Voiding Method Bedside Commode Bedside Commode Bedside Commode # Voids 2 # Bowel Movements 1 Weight 54 kg GENERAL EXAM: Patient is alert and oriented and doesn't appear to be in any acute distress HEENT: Normocephalic. Normal reaction of pupils, equal size, normal range of extraocular motion. No erythema or exudates in the throat. NECK: No masses, no nuchal rigidity. CHEST: No chest wall deformity. LUNGS: Equal air entry with no crackles or wheeze. HEART: S1 and S2 normal with 2/6 systolic murmur. ABDOMEN: No hepatosplenomegaly, normal bowel sounds, no guarding or rigidity. SKIN: No rashes CENTRAL NERVOUS SYSTEM: No focal deficits. EXTREMITIES: No cyanosis, clubbing or edema. Results 07/24/18 06:20 07/24/18 06:20 CBC 07/24/18 Range/Units 06:20 WBC 7.4 (3.8-10.6) k/uL RBC 2.90 L (3.80-5.40) m/uL Hgb 10.1 L (11.4-16.0) gm/dL Hct 32.6 L (34.0-46.0) % Plt Count 231 (150-450) k/uL Comprehensive Metabolic Panel 07/24/18 Range/Units 06:20 Sodium 134 L (137-145) mmol/L Potassium 5.2 H (3.5-5.1) mmol/L Chloride 102 (98-107) mmol/L Carbon Dioxide 25 (22-30) mmol/L BUN 15 (7-17) mg/dL Creatinine 0.57 (0.52-1.04) mg/dL Glucose 94 (74-99) mg/dL Calcium 8.0 L (8.4-10.2) mg/dL Current Medications Generic Name Dose Route Start Last Admin Trade Name Freq PRN Reason Stop Dose Admin Acetaminophen 650 mg 07/22/18 15:50 07/23/18 23:31 Tylenol Tab PO 650 mg Q6HR PRN Administration Mild Pain or Fever > 100.5 Allopurinol 100 mg 07/23/18 09:00 07/24/18 08:27 Zyloprim PO 100 mg DAILY TAMMY Administration Alprazolam 0.25 mg 07/22/18 22:00 07/24/18 08:25 Xanax PO 0.25 mg QID TAMMY Administration Apixaban 5 mg 07/22/18 21:00 07/24/18 08:27 Eliquis PO 5 mg BID TAMMY Administration Calcium Carbonate/Glycine 500 mg 07/23/18 09:00 07/24/18 08:25 Tums PO 500 mg DAILY TAMMY Administration Cyclosporine 1 drops 07/22/18 18:15 07/24/18 06:46 Restasis 0.05% Ophth Soln BOTH EYES 1 drops Q12H TAMMY Administration Donepezil HCl 5 mg 07/22/18 21:00 07/23/18 21:21 Aricept PO 5 mg HS TAMMY Administration Ergocalciferol 50,000 unit 07/22/18 18:15 07/22/18 22:54 Vitamin D2 PO Not Given FR TAMMY Estradiol 1 applic 07/22/18 21:00 07/22/18 22:55 Estrace Cream VAGINAL Not Given MOWEFR TAMMY Famotidine 20 mg 07/22/18 21:00 07/24/18 08:26 Pepcid PO 20 mg BID TAMMY Administration Folic Acid 0.5 mg 07/23/18 09:00 07/24/18 08:26 Folic Acid PO 0.5 mg DAILY TAMMY Administration Ceftriaxone Sodium 1,000 mg/ 50 mls @ 100 mls/hr 07/23/18 09:00 07/24/18 08: 25 Sodium Chloride IVPB 100 mls/hr Q24HR TAMMY Administration Ibuprofen 400 mg 07/22/18 15:50 07/23/18 19:07 Motrin PO 400 mg Q6HR PRN Administration Mild Pain or Fever > 100.5 Levothyroxine Sodium 137 mcg 07/23/18 06:30 07/23/18 05:52 Synthroid PO 137 mcg DAILY@0630 TAMMY Administration Melatonin 10 mg 07/22/18 21:00 07/23/18 21:21 Melatonin PO 10 mg HS TAMMY Administration Methotrexate 10 mg 07/29/18 09:00 Methotrexate PO FR TAMMY Metoclopramide HCl 10 mg 07/22/18 18:11 07/22/18 23:32 Reglan PO 10 mg BID PRN Administration Nausea Metoprolol Tartrate 25 mg 07/24/18 16:00 Lopressor PO TID [facility] Multivitamins/Minerals 1 each 07/23/18 09:00 07/24/18 08:27 Ivite PO 1 each DAILY [facility] Administration Naloxone HCl 0.2 mg 07/22/18 15:50 Narcan IV Q2M PRN Opioid Reversal Xeljanz Xr 11mg 11 mg 07/23/18 20:30 07/24/18 08:25 PO 11 mg DAILY TAMMY Administration Nystatin 1 applic 07/22/18 18:11 Mycostatin Cream TOPICAL DAILY PRN Rash Prednisone 10 mg 07/24/18 09:00 07/24/18 08:27 PO 10 mg DAILY TAMMY Administration Temazepam 15 mg 07/23/18 00:12 07/23/18 21:24 Restoril PO 15 mg HS PRN Administration Insomnia Venlafaxine HCl 150 mg 07/23/18 09:00 07/24/18 08:26 Effexor Xr PO 150 mg DAILY TAMMY Administration Intake and Output 07/23/18 07/24/18 07/24/18 22:59 06:59 14:59 Intake Total 504 Output Total 125 Balance 379 Intake: Oral 504 Output: Urine 125 Other: Voiding Method Bedside Commode Bedside Commode Bedside Commode # Voids 2 # Bowel Movements 1 Weight 54 kg 07/24/18 06:20 07/24/18 06:20 Assessment and Plan Assessment: Sepsis and UTI Age of for relation with rapid ventricular response, history of chronic persistent A. 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 Continue with oral anticoagulant. Change dosing of Lopressor to 25 mg by mouth 3 times a day for better heart rate control. Continue with telemetry monitoring. Treatment for urinary tract infection. We will continue to follow her closely. Thank you for this consultation. RD SCIENTIST note has been reviewed, I agree with a documented findings and plan of care. Patient was seen and evaluated.
--- NOTE | 2018-07-24 14:58 | P.PN ---
Subjective Progress Note Date: 07/23/18 Principal diagnosis: Acute urinary tract infection Patient is a 82-year-old female with known history of atrial fibrillation, history of cardiac valve repair, GERD, memory impairment/hearing disorder, rheumatoid arthritis and hypothyroidism came to ER with complaints of shortness of breath started around 9 AM this morning. Patient also having cough for the past 2 days. Patient says that she woke up with these symptoms. Otherwise patient denied any chest pain. No nausea vomiting or abdominal pain. No diarrhea. Patient has been having dysuria which has been present for a long time. No history of smoking. Patient says that she had nodules in the bladder but she is not following with urologist currently due to incidence issues. Chest x-ray showed chronic changes. Cardiomegaly and no acute cardiopulmonary process otherwise BNP 4000 EKG showed atrial fibrillation. Lactic acid 2.4 UA positive for infection T-max 103.9 07/23/2018 Patient says that she is feeling better. Still having low-grade fever. Urine culture is pending. No complaints of abdominal pain. No nausea vomiting. No chest pain or shortness of breath. Overall clinically improving. Somewhat lethargic this morning as per nursing staff. Alert oriented 3 otherwise currently. Current medications reviewed Objective - Vital Signs Vital signs: Vital Signs Temp 97.0 F L 07/23/18 08:00 Pulse 109 H 07/23/18 08:00 Resp 16 07/23/18 08:00 BP 94/59 07/23/18 08:00 Pulse Ox 99 07/23/18 08:00 Intake & Output 07/22/18 07/23/18 07/23/18 18:59 06:59 18:59 Intake Total 0 1064.584 557.167 Balance 0 1064.584 557.167 Weight 54.431 kg 54.1 kg Intake: Intake, IV Titration 0 64.584 17.167 Amount Diltiazem 50 mg In Sodium 0 64.584 17.167 Chloride 0.9% 40 ml @ 5 MG/HR 5 mls/hr IV .Q10H [facility] [place] Rx#:[id number] Oral 1000 540 Other: Voiding Method Bedside Commode Bedside Commode # Voids 1 4 # Bowel Movements 4 - Exam PHYSICAL EXAMINATION: Patient is lying in the bed comfortably, no acute distress, awake alert and oriented.. HEENT: Normocephalic. Neck is supple. Pupils reactive. Nostrils clear. Oral cavity is moist. Ears reveal no drainage. Neck reveals no JVD, carotid bruits, or thyromegaly. CHEST EXAMINATION: Trachea is central. Symmetrical expansion. Basilar fine crackles. Lung clifford clear to auscultation and percussion. CARDIAC: Normal S1, S2 with no gallops. No murmurs ABDOMEN: Soft. Bowel sounds normal. No organomegaly. No abdominal bruits. Extremities: reveal no edema. No clubbing or cyanosis Neurologically awake, alert, oriented x3 with well-coordinated movements. No focal deficits noted Skin: No rash or skin lesions. Psychiatric: Coperative. Nonsuicidal Musculoskeletal: No joint swelling or deformity. Normal range of motion. - Labs CBC & Chem 7: 07/24/18 06:20 07/24/18 06:20 Labs: Abnormal Lab Results - Last 24 Hours (Table) 07/23/18 07/23/18 Range/Units 05:49 05:49 RBC 2.96 L (3.80-5.40) m/uL Hgb 10.2 L (11.4-16.0) gm/dL Hct 32.4 L (34.0-46.0) % MCV 109.3 H (80.0-100.0) fL RDW 16.2 H (11.5-15.5) % Neutrophils # 8.8 H (1.3-7.7) k/uL Lymphocytes # 0.4 L (1.0-4.8) k/uL Sodium 131 L (137-145) mmol/L Chloride 97 L (98-107) mmol/L Calcium 7.9 L (8.4-10.2) mg/dL Microbiology - Last 24 Hours (Table) 07/22/18 13:15 Blood Culture - Preliminary Blood No Growth after 24 hours 07/22/18 15:18 Urine Culture - Preliminary Urine,Catheterized Assessment and Plan Assessment: Acute urinary tract infection. Sepsis secondary to UTI. Tachycardia fever and lactic acidosis. Improved now Chronic atrial fibrillation with RVR. On oral anticoagulation at home. GERD Osteoarthritis Rheumatoid arthritis Hypothyroidism Macular degeneration history Hard of hearing Myelodysplastic syndrome Overactive bladder History of cardiac valve replacement. Anxiety/depression DVT prophylaxis Plan: Patient will be continued on antibiotics in the form of ceftriaxone and IV fluids. Repeat lactic acid level is normalized. Follow-up urine culture reports. We will start back on home medications including metoprolol. Patient was started on Cardizem drip due to RVR. Further recommendations based on the clinical course. Prognosis is guarded. Discussed with her daughter at bedside in detail. Time with Patient: Greater than 30
--- NOTE | 2018-07-24 15:02 | P.PN ---
Subjective Progress Note Date: 07/24/18 Principal diagnosis: Acute urinary tract infection Patient is a 82-year-old female with known history of atrial fibrillation, history of cardiac valve repair, GERD, memory impairment/hearing disorder, rheumatoid arthritis and hypothyroidism came to ER with complaints of shortness of breath started around 9 AM this morning. Patient also having cough for the past 2 days. Patient says that she woke up with these symptoms. Otherwise patient denied any chest pain. No nausea vomiting or abdominal pain. No diarrhea. Patient has been having dysuria which has been present for a long time. No history of smoking. Patient says that she had nodules in the bladder but she is not following with urologist currently due to incidence issues. Chest x-ray showed chronic changes. Cardiomegaly and no acute cardiopulmonary process otherwise BNP 4000 EKG showed atrial fibrillation. Lactic acid 2.4 UA positive for infection T-max 103.9 07/23/2018 Patient says that she is feeling better. Still having low-grade fever. Urine culture is pending. No complaints of abdominal pain. No nausea vomiting. No chest pain or shortness of breath. Overall clinically improving. Somewhat lethargic this morning as per nursing staff. Alert oriented 3 otherwise currently. 07/24/2018 Patient is feeling much better today. Patient was found have A. fib with RVR last night. Cardiology was consulted. Metoprolol dose has been increased to 3 times a day. Urine culture is growing gram-negative bacilli. No fever no chills. No nausea vomiting or abdominal pain. Tolerating oral diet. Currently denied any complaints. Current medications reviewed Objective - Vital Signs Vital signs: Vital Signs Temp 97.3 F L 07/24/18 08:00 Pulse 102 H 07/24/18 08:00 Resp 18 07/24/18 08:00 BP 110/70 07/24/18 08:00 Pulse Ox 97 07/24/18 08:00 Intake & Output 07/23/18 07/24/18 07/24/18 18:59 06:59 18:59 Intake Total 737.167 324 420 Output Total 125 Balance 737.167 199 420 Weight 54 kg Intake: Intake, IV Titration 17.167 Amount Diltiazem 50 mg In Sodium 17.167 Chloride 0.9% 40 ml @ 5 MG/HR 5 mls/hr IV .Q10H [facility] Rx#:[id number] Oral 720 324 420 Output: Urine 125 Other: Voiding Method Bedside Commode Bedside Commode Bedside Commode # Voids 4 2 6 # Bowel Movements 4 1 3 - Exam PHYSICAL EXAMINATION: Patient is lying in the bed comfortably, no acute distress, awake alert and oriented.. HEENT: Normocephalic. Neck is supple. Pupils reactive. Nostrils clear. Oral cavity is moist. Ears reveal no drainage. Neck reveals no JVD, carotid bruits, or thyromegaly. CHEST EXAMINATION: Trachea is central. Symmetrical expansion. Basilar fine crackles. Lung clifford clear to auscultation and percussion. CARDIAC: Normal S1, S2 with no gallops. No murmurs ABDOMEN: Soft. Bowel sounds normal. No organomegaly. No abdominal bruits. Extremities: reveal no edema. No clubbing or cyanosis Neurologically awake, alert, oriented x3 with well-coordinated movements. No focal deficits noted Skin: No rash or skin lesions. Psychiatric: Coperative. Nonsuicidal Musculoskeletal: No joint swelling or deformity. Normal range of motion. - Labs CBC & Chem 7: 07/24/18 06:20 07/24/18 06:20 Labs: Abnormal Lab Results - Last 24 Hours (Table) 07/24/18 07/24/18 Range/Units 06:20 06:20 RBC 2.90 L (3.80-5.40) m/uL Hgb 10.1 L (11.4-16.0) gm/dL Hct 32.6 L (34.0-46.0) % MCV 112.7 H (80.0-100.0) fL RDW 16.8 H (11.5-15.5) % Lymphocytes # 0.4 L (1.0-4.8) k/uL Sodium 134 L (137-145) mmol/L Potassium 5.2 H (3.5-5.1) mmol/L Calcium 8.0 L (8.4-10.2) mg/dL Microbiology - Last 24 Hours (Table) 07/22/18 15:18 Urine Culture - Preliminary Urine,Catheterized Gram Neg Bacilli 07/22/18 13:15 Blood Culture - Preliminary Blood No Growth after 24 hours Assessment and Plan Assessment: Acute urinary tract infection. Gram-negative bacilli. Sepsis secondary to UTI. Tachycardia fever and lactic acidosis. Improved now Chronic atrial fibrillation with RVR. On oral anticoagulation at home. Was on Cardizem drip. Metoprolol dose increased. 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 Anxiety/depression DVT prophylaxis Plan: Patient will be continued on antibiotics in the form of ceftriaxone and encourage oral intake.. Repeat lactic acid level is normalized. Follow-up urine culture reports. We will start back on home medications including metoprolol. Patient was on Cardizem drip due to RVR. Metoprolol increased to 3 times a day. Further recommendations based on the clinical course. Prognosis is guarded. Discussed with her daughter at bedside in detail. Time with Patient: Greater than 30
[2018-07-24] MEDS: METOPROLOL TARTRATE 25 MG TAB PO SCH ×2 (17:07→21:10)
[2018-07-24] MEDS: TEMAZEPAM 15 MG CAP PO PRN (21:07)
[2018-07-24] MEDS: MELATONIN 5 MG TABLET PO SCH (21:07)
[2018-07-24] MEDS: DONEPEZIL 5 MG TAB PO SCH (21:08)
[2018-07-25] MEDS: IBUPROFEN 400 MG TAB PO PRN (05:16)
[2018-07-25] MEDS: cycloSPORINE 0.05% OPHTH 0.4 ML DROPERETTE BOTH EYES SCH (05:17)
[2018-07-25] MEDS: LEVOTHYROXINE 137 MCG TAB PO SCH (05:17)
[2018-07-25] MEDS: ALPRAZolam 0.25 MG TAB PO SCH (06:21)
[2018-07-25] MEDS: FAMOTIDINE 20 MG TAB PO SCH (09:01)
[2018-07-25] MEDS: APIXABAN 5 MG TAB PO SCH (09:01)
[2018-07-25] MEDS: ALLOPURINOL 100 MG TAB PO SCH (09:01)
[2018-07-25] MEDS: CALCIUM CARBONATE 500 MG CHEWABLE PO SCH (09:01)
[2018-07-25] MEDS: FOLIC ACID 1 MG TAB PO SCH (09:02)
[2018-07-25] MEDS: VENLAFAXINE HCL ER 150 MG CAP PO SCH (09:02)
[2018-07-25] MEDS: predniSONE 10 MG TAB PO SCH (09:02)
[2018-07-25] MEDS: METOPROLOL TARTRATE 25 MG TAB PO SCH (09:02)
[2018-07-25] MEDS: VIT A,C & E-LUTEIN-MINERALS 1 EACH TAB PO SCH (09:03)
[2018-07-25] MEDS: XELJANZ 11 MG PO SCH (09:07)
[2018-07-25 09:50] VITALS: BP 159/94; PULSE 98; RESP 18; TEMP 98.4
[2018-07-25 11:27] LABS: Anion Gap 9 mmol/L; Blood Urea Nitrogen 14 mg/dL (7-17); Calcium 8.3 mg/dL (8.4-10.2); Carbon Dioxide 21 mmol/L (22-30); Chloride 99 mmol/L (98-107); Glucose 85 mg/dL (74-99); Potassium 4.8 mmol/L (3.5-5.1); Sodium 129 mmol/L (137-145)
--- NOTE | 2018-07-25 13:32 | P.DS ---
Providers Date of admission: 07/22/18 15:52 Expected date of discharge: 07/25/18 Attending physician: Martin Al Consults: 07/23/18 12:41 Consult Physician Routine Consulting Provider: Rhonda Espinoza Consult Reason/Comments: atrial fib Do you want consulting provider notified?: Already Contacted Primary care physician: Ariadne Henderson [facility] Hospital Course: Final Diagnoses: Acute urinary tract infection. E. coli, Sepsis secondary to UTI. Tachycardia fever and lactic acidosis. Improved now Chronic atrial fibrillation with RVR. On oral anticoagulation at home. Was on Cardizem drip. Metoprolol dose increased. 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 Anxiety/depression Hospital course:Patient is a 82-year-old female with known history of atrial fibrillation, history of cardiac valve repair, GERD, memory impairment/hearing disorder, rheumatoid arthritis and hypothyroidism came to ER with complaints of shortness of breath started around 9 AM this morning. Patient also having cough for the past 2 days. Patient says that she woke up with these symptoms. Otherwise patient denied any chest pain. No nausea vomiting or abdominal pain. No diarrhea. Patient has been having dysuria which has been present for a long time. No history of smoking. Patient says that she had nodules in the bladder but she is not following with urologist currently due to incidence issues. Chest x-ray showed chronic changes. Cardiomegaly and no acute cardiopulmonary process otherwise BNP 4000 EKG showed atrial fibrillation. Lactic acid 2.4 UA positive for infection T-max 103.9 Urine culture are reporting E. coli, maintained on IV antibiotics. Evaluated by cardiology, antiarrhythmics adjusted. Significant clinical improvement. Patient is being discharged home in a stable condition with guarded prognosis, once cleared by cardiology - Exam PHYSICAL EXAMINATION: Patient is in no acute distress, awake alert and oriented X 3. CHEST EXAMINATION: Trachea is central. Symmetrical expansion. Basilar fine crackles. Lung clifford clear to auscultation and percussion. CARDIAC: Normal S1, S2 with no gallops. No murmurs ABDOMEN: Soft. Bowel sounds normal. No organomegaly. No abdominal bruits. Neurologically: No focal deficits noted Microbiology 07/22/18 15:18 Urine,Catheterized Urine Culture - Final Escherichia coli 07/22/18 13:15 Blood Blood Culture - Preliminary No Growth after 48 hours The impression and plan of care has been dictated as directed. : I performed a history and examination of this patient, discussed the same with the dictator. I agree with the dictator's note ,documented as a scribe. Any additional findings or plans will be noted. Time taken: 35 minutes Patient Condition at Discharge: Stable Plan - Discharge Summary Discharge Rx Participant: No New Discharge Prescriptions: New Sulfamethox-Tmp 800-160Mg [Bactrim DS 800-160 mg] 1 tab PO Q12HR #8 tab Metoprolol Tartrate [Lopressor] 50 mg PO BID #60 tab Continue Allopurinol [Zyloprim] 100 mg PO DAILY Apixaban [Eliquis] 5 mg PO BID Melatonin 10 mg PO HS Methotrexate Sodium [Methotrexate] 10 mg PO FR Ergocalciferol [Vitamin D2 (DRISDOL)] 50,000 unit PO FR Estradiol [Estrace Cream 0.01%] 1 applic VAGINAL MOWEFR Vit A/Vit C/Vit E/Zinc/Copper [ICAPS SOFTGEL] 1 cap PO DAILY Diphenox-Atrop 2.5-0.025 mg [Lomotil] 1 tab PO DAILY PRN PRN Reason: Diarrhea Metoclopramide [Reglan] 10 mg PO BID PRN PRN Reason: Nausea Levothyroxine Sodium [Synthroid] 137 mcg PO DAILY Tofacitinib Citrate [Xeljanz] 5 mg PO BID Ipratropium [place] [Ipratropium [place] 0.03%] 1 spray EA NOSTRIL BID ALPRAZolam [Xanax] 0.25 mg PO QID Temazepam [Restoril] 30 mg PO HS PRN PRN Reason: Insomnia Calcium Carbonate [Calcium] 600 mg PO DAILY cycloSPORINE 0.05% OPHTH SOLN [Restasis] 1 drop BOTH EYES Q12H Denosumab [Prolia] 60 mg SQ Q6M Donepezil [Aricept] 5 mg PO HS Folic Acid 0.4 mg PO DAILY Nystatin 100,000Unit/gm Cream [Mycostatin Cream] 1 applic TOPICAL DAILY PRN PRN Reason: Rash Pantoprazole [Protonix] 40 mg PO DAILY Venlafaxine HCl [Effexor XR] 150 mg PO DAILY predniSONE 10 mg PO DAILY Discontinued Niacin [Niacin ER] 500 mg PO HS Metoprolol Tartrate [Lopressor] 50 mg PO DAILY Losartan [Cozaar] 25 mg PO DAILY #0 Potassium Chloride ER [K-Dur 10] 10 meq PO BID Ranitidine HCl [Zantac] 150 mg PO BID Niacin [Niaspan] 1,000 mg PO DAILY Discharge Medication List Allopurinol [Zyloprim] 100 mg PO DAILY 03/21/14 [History] Apixaban [Eliquis] 5 mg PO BID 11/02/14 [History] Melatonin 10 mg PO HS 05/23/15 [History] Methotrexate Sodium [Methotrexate] 10 mg PO FR 05/23/15 [History] Ergocalciferol [Vitamin D2 (DRISDOL)] 50,000 unit PO FR 09/05/17 [History] ALPRAZolam [Xanax] 0.25 mg PO QID 12/07/17 [History] Diphenox-Atrop 2.5-0.025 mg [Lomotil] 1 tab PO DAILY PRN 12/07/17 [History] Estradiol [Estrace Cream 0.01%] 1 applic VAGINAL MOWEFR 12/07/17 [History] Ipratropium [place] [Ipratropium [place] 0.03%] 1 spray EA NOSTRIL BID 12/07/17 [History] Levothyroxine Sodium [Synthroid] 137 mcg PO DAILY 12/07/17 [History] Metoclopramide [Reglan] 10 mg PO BID PRN 12/07/17 [History] Temazepam [Restoril] 30 mg PO HS PRN 12/07/17 [History] Tofacitinib Citrate [Xeljanz] 5 mg PO BID 12/07/17 [History] Vit A/Vit C/Vit E/Zinc/Copper [ICAPS SOFTGEL] 1 cap PO DAILY 12/07/17 [History] Calcium Carbonate [Calcium] 600 mg PO DAILY 07/22/18 [History] Denosumab [Prolia] 60 mg SQ Q6M 07/22/18 [History] Donepezil [Aricept] 5 mg PO HS 07/22/18 [History] Folic Acid 0.4 mg PO DAILY 07/22/18 [History] Nystatin 100,000Unit/gm Cream [Mycostatin Cream] 1 applic TOPICAL DAILY PRN [History] Pantoprazole [Protonix] 40 mg PO DAILY 07/22/18 [History] Venlafaxine HCl [Effexor XR] 150 mg PO DAILY 07/22/18 [History] cycloSPORINE 0.05% OPHTH SOLN [Restasis] 1 drop BOTH EYES Q12H 07/22/18 [History ] predniSONE 10 mg PO DAILY 07/23/18 [History] Metoprolol Tartrate [Lopressor] 50 mg PO BID #60 tab 07/25/18 [Rx] Sulfamethox-Tmp 800-160Mg [Bactrim DS 800-160 mg] 1 tab PO Q12HR #8 tab [Rx] Follow up Appointment(s)/Referral(s): Viral Rainey MD [STAFF PHYSICIAN] - 1 Week Ariadne Henderson MD [Primary Care Provider] - 07/28/18 2:30 pm (With Leah GRIFFIN) [facility] Visiting Nurse, [NON-STAFF] - Ambulatory/Diagnostic Orders: Complete Blood Count w/diff [LAB.AMB] Time Frame: 3 Days, Location: None Selected Patient Instructions/Handouts: A-fib (Atrial Fibrillation) (DC), Urinary Tract Infection in Women (DC)
--- NOTE | 2018-07-25 14:12 | P.PN ---
Subjective Progress Note Date: 07/25/18 This is a 82-year-old female patient who presents emergency department because of fever and chills as well as weakness for the last 4 days. The patient also admits to a minor cough that is nonproductive. The patient was found to have evidence of sepsis with urinary tract infection and is currently on IV antibiotic therapy. She was also found to be in atrial fibrillation with rapid ventricular response. She was initially started on a Cardizem drip and She was started back on her home dose of Lopressor. Her heart rate is not optimally controlled and we will make adjustments accordingly. 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 She follows with Dr. Rainey on a regular basis. She also has history of chronic atrial fibrillation and is being treated with beta ahsan and anticoagulant. She seen sitting up in a chair she 's in no acute distress. Denies any chest discomfort, shortness breath or palpitations. Remains in an atrial fibrillation with a heart rate 100 s. We will increase the dose of beta ahsan to 50 mg by mouth 3 times a day today. Continue the rest of her medications. Objective - Vital Signs Vital signs: Vital Signs Temp 98.4 F 07/25/18 08:00 Pulse 98 07/25/18 08:00 Resp 18 07/25/18 08:00 BP 159/94 07/25/18 08:00 Pulse Ox 94 L 07/25/18 08:00 Intake & Output 07/24/18 07/25/18 07/25/18 18:59 06:59 18:59 Intake Total 780 360 Balance 780 360 Weight 54 kg Intake: Oral 780 360 Other: Voiding Method Bedside Commode Bedside Commode Bedside Commode # Voids 1 1 1 # Bowel Movements 1 1 - Exam GENERAL EXAM: Patient is alert and oriented and doesn't appear to be in any acute distress HEENT: Normocephalic. Normal reaction of pupils, equal size, normal range of extraocular motion. No erythema or exudates in the throat. NECK: No masses, no nuchal rigidity. CHEST: No chest wall deformity. LUNGS: Equal air entry with no crackles or wheeze. HEART: S1 and S2 normal with 2/6 systolic murmur. ABDOMEN: No hepatosplenomegaly, normal bowel sounds, no guarding or rigidity. SKIN: No rashes CENTRAL NERVOUS SYSTEM: No focal deficits. EXTREMITIES: No cyanosis, clubbing or edema. 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 DNP note has been reviewed, I agree with a documented findings and plan of care. Patient was seen and examined.
[2018-07-25] MEDS ORDERED: METOPROLOL TARTRATE 50 MG TAB PO SCH (21:00)
[2018-07-29] MEDS ORDERED: METHOTREXATE SODIUM 2.5 MG TAB PO SCH (09:00)
== END 2018-07-25 16:44 | disposition home health service (06) | DRG 872 ==
LOC: EC 13:03 → 5MS5E 15:52 → 6SEL 16:21
PROVIDERS: ADMIT Internal Medicine; ATTEND Internal Medicine
DX: A41.9 Sepsis, unspecified organism (principal); N39.0 Urinary tract infection, site not specified; E87.2 Acidosis; E87.1 Hypo-osmolality and hyponatremia; I48.2 Chronic atrial fibrillation; E87.5 Hyperkalemia; E83.42 Hypomagnesemia; K21.9 Gastro-esophageal reflux disease without esophagitis; D46.9 Myelodysplastic syndrome, unspecified; M06.9 Rheumatoid arthritis, unspecified; I11.9 Hypertensive heart disease without heart failure; E03.9 Hypothyroidism, unspecified; F32.9 Major depressive disorder, single episode, unspecified; F41.9 Anxiety disorder, unspecified; M19.91 Primary osteoarthritis, unspecified site; H35.30 Unspecified macular degeneration; H91.90 Unspecified hearing loss, unspecified ear; N32.81 Overactive bladder; Z79.01 Long term (current) use of anticoagulants; Z79.890 Hormone replacement therapy; Z79.52 Long term (current) use of systemic steroids; Z79.899 Other long term (current) drug therapy; Z95.2 Presence of prosthetic heart valve; Z87.19 Personal history of other diseases of the digestive system; Z90.49 Acquired absence of other specified parts of digestive tract; Z82.49 Family history of ischemic heart disease and other diseases of the circulatory system
CPT/HCPCS: 36415; 71046; 80048; 80053; 81001; 82550; 82553; 83605; 83735; 83880; 84439; 84443; 84484; 85025; 85610; 85730; 87040; 87077; 87086; 87186; 93005; 93306; 96361; 96365; 96366; 96367; 96375; 96376; 99285

== ENCOUNTER 2018-08-05 19:17 | Inpatient (IN) | payer MEDICARE, OTHER ==
[2018-08-05] MEDS ORDERED: ASPIRIN 81 MG PO STA (19:54)
--- NOTE | 2018-08-05 19:57 | ED ---
General Adult HPI - General Chief complaint: Weakness Stated complaint: weakness Time Seen by Provider: 08/05/18 19:46 Source: patient, EMS Mode of arrival: EMS Limitations: physical limitation - History of Present Illness Initial comments: Patient is an 82-year-old female who presents with chief complaint weakness. Patient was recently in the hospital for a urinary tract infection sepsis and discharged on Wednesday. She states she's been getting gradually weaker since being home. She cannot identify any localizing symptoms. She denies any pain. She denies any focal deficit. She denies fever, chills, nausea, vomiting, chest pain, dysuria. She admits to mild shortness of breath. - Related Data Home Medications Medication Instructions Recorded Confirmed Allopurinol [Zyloprim] 100 mg PO DAILY 03/21/14 07/22/18 Apixaban [Eliquis] 5 mg PO BID 11/02/14 07/22/18 Melatonin 10 mg PO HS 05/23/15 07/22/18 Methotrexate Sodium [Methotrexate] 10 mg PO FR 05/23/15 07/22/18 Ergocalciferol [Vitamin D2 50,000 unit PO FR 09/05/17 07/22/18 (DRISDOL)] ALPRAZolam [Xanax] 0.25 mg PO QID 12/07/17 07/22/18 Diphenox-Atrop 2.5-0.025 mg 1 tab PO DAILY PRN 12/07/17 07/22/18 [Lomotil] Estradiol [Estrace Cream 0.01%] 1 applic VAGINAL MOWEFR 12/07/17 07/22/18 Ipratropium [place] [Ipratropium 1 spray EA NOSTRIL BID 12/07/17 07/22/18 [place] 0.03%] Levothyroxine Sodium [Synthroid] 137 mcg PO DAILY 12/07/17 07/22/18 Metoclopramide [Reglan] 10 mg PO BID PRN 12/07/17 07/22/18 Temazepam [Restoril] 30 mg PO HS PRN 12/07/17 07/22/18 Tofacitinib Citrate [Xeljanz] 5 mg PO BID 12/07/17 07/22/18 Vit A/Vit C/Vit E/Zinc/Copper 1 cap PO DAILY 12/07/17 07/22/18 [ICAPS SOFTGEL] Calcium Carbonate [Calcium] 600 mg PO DAILY 07/22/18 07/22/18 Denosumab [Prolia] 60 mg SQ Q6M 07/22/18 07/22/18 Donepezil [Aricept] 5 mg PO HS 07/22/18 07/22/18 Folic Acid 0.4 mg PO DAILY 07/22/18 07/22/18 Nystatin 100,000Unit/gm Cream 1 applic TOPICAL DAILY PRN 07/22/18 07/22/18 [Mycostatin Cream] Pantoprazole [Protonix] 40 mg PO DAILY 07/22/18 07/22/18 Venlafaxine HCl [Effexor XR] 150 mg PO DAILY 07/22/18 07/22/18 cycloSPORINE 0.05% OPHTH SOLN 1 drop BOTH EYES Q12H 07/22/18 07/22/18 [Restasis] predniSONE 10 mg PO DAILY 07/23/18 07/23/18 Previous Rx's Medication Instructions Recorded Metoprolol Tartrate [Lopressor] 50 mg PO BID #60 tab 07/25/18 Sulfamethox-Tmp 800-160Mg [Bactrim 1 tab PO Q12HR #8 tab 07/25/18 DS 800-160 mg] Allergies Allergy/AdvReac Type Severity Reaction Status Date / Time clonazepam [From Klonopin] Allergy Hallucinati Verified 07/22/18 13:49 ons Review of Systems ROS Statement: Those systems with pertinent positive or pertinent negative responses have been documented in the HPI. ROS Other: All systems not noted in ROS Statement are negative. Respiratory: Reports: dyspnea Neurological: Reports: weakness Past Medical History Past Medical History: Atrial Fibrillation, Eye Disorder, GERD/Reflux, Hearing Disorder / Deafness, Memory Impairment, Osteoarthritis (OA), Rheumatoid Arthritis (RA), Thyroid Disorder Additional Past Medical History / Comment(s): HX of MACULAR DEGENERATION, PANCREATITIS, HARD OF HEARING. MYELODYSPLASTIC SYNDROME, BONE MARROW DISEASE, overactive bladder History of Any Multi-Drug Resistant Organisms: None Reported Past Surgical History: Back Surgery, Bariatric Surgery, Cardiac Valve Replacement, Cholecystectomy Additional Past Surgical History / Comment(s): INTESTINAL BYPASS/PROLAPSED RECTUM, TUMMY TUCK, CARDIAC VALVE REPAIR. Past Anesthesia/Blood Transfusion Reactions: No Reported Reaction Additional Past Anesthesia/Blood Transfusion Reaction / Comment(s): PAST BLOOD TRANSFUSION, no problems. Past Psychological History: Anxiety, Depression Smoking Status: Never smoker Past Alcohol Use History: None Reported Past Drug Use History: None Reported - Past Family History Mother Family Medical History: Myocardial Infarction ([place]) Father Family Medical History: Myocardial Infarction ([place]) General Exam Limitations: physical limitation General appearance: alert, in no apparent distress Head exam: Present: atraumatic, normocephalic Eye exam: Present: normal appearance ENT exam: Present: normal exam Neck exam: Present: normal inspection Respiratory exam: Present: rhonchi. Absent: respiratory distress Cardiovascular Exam: Present: regular rate, irregular rhythm. Absent: normal rhythm GI/Abdominal exam: Present: soft. Absent: distended, tenderness Rectal exam: Present: deferred Extremities exam: Present: normal inspection Back exam: Present: normal inspection Neurological exam: Present: alert, oriented X3, CN II-XII intact. Absent: motor sensory deficit Psychiatric exam: Present: normal affect, normal mood Skin exam: Present: warm, dry, intact Course Vital Signs 08/05/18 19:30 Temperature 97.0 F L Pulse Rate 88 Respiratory 17 Rate Blood Pressure 112/66 O2 Sat by Pulse 99 Oximetry Medical Decision Making - Medical Decision Making Patient presents with chief complaint of weakness after recent discharge from the hospital status post UTI and sepsis. On initial evaluation, vitals are stable, patient is no acute distress. EKG performed at 1932 shows atrial fibrillation with a rate of 83 bpm. EKG otherwise does not show any acute signs of ischemia. When compared to previous EKG performed on 07/22/2018 EKGs are similar. 10:46 PM Plan evaluation of this patient is remarkable for hyponatremia, and a BNP of just under 6000. Chest x-ray appears congested. Clinically, patient is in acute congestive heart failure exacerbation. Consider SIADH given fluid overloaded hyponatremia. Currently pending urine though I do not believe this to be a source of the patient's presenting symptoms. Urine studies were added. Case discussed with Dr. Kendall who accepts admission with consult to cardiology and nephrology. Results discussed with the patient, she is agreeable with admission. Patient given a dose of lasix in the ED. - Lab Data Result diagrams: 08/05/18 20:35 08/05/18 20:35 Lab Results 08/05/18 08/05/18 08/05/18 Range/Units 20:35 20:35 20:35 WBC 8.1 (3.8-10.6) k/uL RBC 3.43 L (3.80-5.40) m/uL Hgb 11.7 (11.4-16.0) gm/dL Hct 36.1 (34.0-46.0) % MCV 105.3 H D (80.0-100.0) fL MCH 34.0 (25.0-35.0) pg MCHC 32.3 (31.0-37.0) g/dL RDW 16.8 H (11.5-15.5) % Plt Count 483 H D (150-450) k/uL Neutrophils % 81 % Lymphocytes % 11 % Monocytes % 5 % Eosinophils % 1 % Basophils % 0 % Neutrophils # 6.5 (1.3-7.7) k/uL Lymphocytes # 0.9 L (1.0-4.8) k/uL Monocytes # 0.4 (0-1.0) k/uL Eosinophils # 0.1 (0-0.7) k/uL Basophils # 0.0 (0-0.2) k/uL Hypochromasia Slight Anisocytosis Slight Macrocytosis Moderate Sodium 123 L (137-145) mmol/L Potassium 4.8 (3.5-5.1) mmol/L Chloride 86 L (98-107) mmol/L Carbon Dioxide 26 (22-30) mmol/L Anion Gap 11 mmol/L BUN 18 H (7-17) mg/dL Creatinine 0.83 (0.52-1.04) mg/dL Est GFR (CKD-EPI)AfAm 77 (>60 ml/min/1.73 sqM) Est GFR (CKD-EPI)NonAf 67 (>60 ml/min/1.73 sqM) Glucose 89 (74-99) mg/dL Calcium 8.5 (8.4-10.2) mg/dL Magnesium 1.8 (1.6-2.3) mg/dL Total Bilirubin 0.5 (0.2-1.3) mg/dL AST 57 H (14-36) U/L ALT 47 (9-52) U/L Alkaline Phosphatase 79 (38-126) U/L Troponin I (0.000-0.034) ng/mL NT-Pro-B Natriuret Pep 5920 pg/mL Total Protein 6.6 (6.3-8.2) g/dL Albumin 3.9 (3.5-5.0) g/dL 08/05/18 Range/Units 20:35 WBC (3.8-10.6) k/uL RBC (3.80-5.40) m/uL Hgb (11.4-16.0) gm/dL Hct (34.0-46.0) % MCV (80.0-100.0) fL MCH (25.0-35.0) pg MCHC (31.0-37.0) g/dL RDW (11.5-15.5) % Plt Count (150-450) k/uL Neutrophils % % Lymphocytes % % Monocytes % % Eosinophils % % Basophils % % Neutrophils # (1.3-7.7) k/uL Lymphocytes # (1.0-4.8) k/uL Monocytes # (0-1.0) k/uL Eosinophils # (0-0.7) k/uL Basophils # (0-0.2) k/uL Hypochromasia Anisocytosis Macrocytosis Sodium (137-145) mmol/L Potassium (3.5-5.1) mmol/L Chloride (98-107) mmol/L Carbon Dioxide (22-30) mmol/L Anion Gap mmol/L BUN (7-17) mg/dL Creatinine (0.52-1.04) mg/dL Est GFR (CKD-EPI)AfAm (>60 ml/min/1.73 sqM) Est GFR (CKD-EPI)NonAf (>60 ml/min/1.73 sqM) Glucose (74-99) mg/dL Calcium (8.4-10.2) mg/dL Magnesium (1.6-2.3) mg/dL Total Bilirubin (0.2-1.3) mg/dL AST (14-36) U/L ALT (9-52) U/L Alkaline Phosphatase (38-126) U/L Troponin I 0.024 (0.000-0.034) ng/mL NT-Pro-B Natriuret Pep pg/mL Total Protein (6.3-8.2) g/dL Albumin (3.5-5.0) g/dL Disposition Clinical Impression: Hyponatremia, Weakness, CHF exacerbation, Atrial fibrillation Disposition: ADMITTED IP TO THIS HOSP Condition: Fair Is patient prescribed a controlled substance at d/c from ED?: No Referrals: Ariadne Henderson MD [Primary Care Provider] - 1-2 days Decision to Admit Reason: Admit from EC - Out of Hospital Transfer - Req. Specs Out of Hospital Transfer - Requested Specifics: Telemetry Unit
[2018-08-05] MEDS ORDERED: SODIUM CHLORIDE 0.9% 1,000 ML IV ONE (20:00)
[2018-08-05 20:47] LABS: Anisocytosis Slight; Basophils % (A) 0 %; Eosinophils # (A) 0.1 k/uL (0-0.7); Eosinophils % (A) 1 %; HCT 36.1 % (34.0-46.0); HGB 11.7 gm/dL (11.4-16.0); Hypochromasia Slight; Lymphocytes # (A) 0.9 k/uL (1.0-4.8); Lymphocytes % (A) 11 %; MCHC 32.3 g/dL (31.0-37.0); Macrocytosis Moderate; Mean Platelet Volume 7.6; Monocytes # (A) 0.4 k/uL (0-1.0); Monocytes % (A) 5 %; Neutrophils # (A) 6.5 k/uL (1.3-7.7); Neutrophils % (A) 81 %; RBC 3.43 m/uL (3.80-5.40); RDW 16.8 % (11.5-15.5); WBC 8.1 k/uL (3.8-10.6)
[2018-08-05 20:55] LABS: MCV 105.3 fL (80.0-100.0); Platelet Count 483 k/uL (150-450)
[2018-08-05 21:03] LABS: Albumin 3.9 g/dL (3.5-5.0); Calcium 8.5 mg/dL (8.4-10.2); Magnesium 1.8 mg/dL (1.6-2.3); Potassium 4.8 mmol/L (3.5-5.1); Total Bilirubin 0.5 mg/dL (0.2-1.3); Total Protein 6.6 g/dL (6.3-8.2)
--- NOTE | 2018-08-05 21:49 | CT ---
EXAMINATION TYPE: CT brain wo con DATE OF EXAM: 08/05/2018 COMPARISON: None HISTORY: Weakness CT DLP: 763.5 mGycm Automated exposure control for dose reduction was used. FINDINGS: There is some cerebral cortical atrophy. There is no mass effect nor midline shift. There is no sign of intracranial hemorrhage. The calvarium is intact. IMPRESSION: CEREBRAL ATROPHY. NO ACUTE INTRACRANIAL ABNORMALITY.
--- NOTE | 2018-08-05 21:53 | XR ---
EXAMINATION TYPE: XR chest 2V DATE OF EXAM: 08/05/2018 COMPARISON: 09/05/2017 HISTORY: Short of breath TECHNIQUE: Frontal and lateral views of the chest are obtained. FINDINGS: There is some pulmonary vascular congestion. Heart appears enlarged. There are sternal wir es. There are chest leads. There is hiatal hernia. IMPRESSION: There is probably mild heart failure that is new compared to old exam. There is probably underlying pulmonary fibrosis.
[2018-08-05] MEDS ORDERED: FUROSEMIDE 10 MG/ML 2 ML VIAL IV ONE (22:36)
[2018-08-05] MEDS ORDERED: NALOXONE 0.4 MG/ML 1 ML VIAL IV PRN (22:37)
[2018-08-05 23:39] LABS: Appearance,Urine Cloudy (Clear); Bacteria,Urine Few /hpf; Bilirubin,Urine Negative (Negative); Blood,Urine Negative (Negative); Color,Urine Light Yellow; Glucose,Urine (UA) Negative (Negative); Ketones,Urine Negative (Negative); Leukocyte Esterase,Urine Large (Negative); Nitrite,Urine Negative (Negative); PH, Urine 5.5 (5.0-8.0); Protein,Urine Negative (Negative); RBC,Urine 3 /hpf (0-5); Specific Gravity,Urine 1.005 (1.001-1.035); Squamous Epithelial Cell,Urine 2 /hpf (0-4); Urobilinogen,Urine <2.0 mg/dL (<2.0); WBC,Urine 118 /hpf (0-5)
[2018-08-06 06:54] LABS: Anisocytosis Slight; Basophils % (A) 0 %; Eosinophils % (A) 1 %; HCT 31.9 % (34.0-46.0); HGB 10.8 gm/dL (11.4-16.0); Lymphocytes # (A) 0.9 k/uL (1.0-4.8); Lymphocytes % (A) 15 %; MCH 35.2 pg (25.0-35.0); MCHC 33.7 g/dL (31.0-37.0); MCV 104.4 fL (80.0-100.0); Macrocytosis Moderate; Mean Platelet Volume 7.1; Monocytes # (A) 0.5 k/uL (0-1.0); Monocytes % (A) 8 %; Neutrophils # (A) 4.5 k/uL (1.3-7.7); Neutrophils % (A) 74 %; Platelet Count 418 k/uL (150-450); RBC 3.06 m/uL (3.80-5.40); RDW 17.2 % (11.5-15.5); WBC 6.1 k/uL (3.8-10.6)
[2018-08-06 07:04] LABS: Anion Gap 8 mmol/L; Blood Urea Nitrogen 18 mg/dL (7-17); Calcium 7.9 mg/dL (8.4-10.2); Carbon Dioxide 27 mmol/L (22-30); Chloride 93 mmol/L (98-107); Glucose 87 mg/dL (74-99); Potassium 4.4 mmol/L (3.5-5.1); Sodium 128 mmol/L (137-145)
[2018-08-06] MEDS ORDERED: METOCLOPRAMIDE 10 MG TAB PO PRN (10:42)
[2018-08-06] MEDS ORDERED: NYSTATIN 100,000UNIT/GM CREAM 30 GM TUBE TOPICAL PRN (10:42)
[2018-08-06] MEDS ORDERED: DENOSUMAB 60 MG/ML 1 ML SYRINGE SQ SCH (10:45)
[2018-08-06] MEDS: ACETAMINOPHEN TAB 325 MG TAB PO PRN ×2 (12:24→20:42)
[2018-08-06] MEDS: ALPRAZolam 0.25 MG TAB PO SCH ×3 (12:25→20:43)
[2018-08-06] MEDS: SODIUM CHLORIDE 0.9% 1,000 ML IV SCH ×2 (14:22→20:52)
[2018-08-06] MEDS: cycloSPORINE 0.05% OPHTH 0.4 ML DROPERETTE BOTH EYES SCH ×2 (14:23→20:47)
--- NOTE | 2018-08-06 15:03 | CONS ---
CONSULTATION REASON FOR CONSULT: Hyponatremia. HISTORY OF PRESENT ILLNESS: Patient is an 82-year-old female who was admitted to the hospital with complaints of weakness. Patient states she was recently discharged from the hospital after an admission for urinary tract infection and pneumonia. Patient stated that she did have some nausea and an occasional bout of diarrhea. She had not been eating much prior to admission. Patient did not admit to significant increase in her fluid intake. She had been eating pre-prepared meals. On admission, serum sodium was 123. Patient received a normal saline bolus. She also received a dose of IV Lasix. Her serum sodium is up to 128 this morning. Overall patient states she is feeling slightly better. PAST MEDICAL HISTORY: 1. Recent hospitalization for urinary tract infection and E coli UTI. 2. History of atrial fibrillation. 3. Gastroesophageal reflux disease. 4. Rheumatoid arthritis. 5. Osteoarthritis. 6. Dementia. 7. Hypothyroidism. 8. Macular degeneration. 9. Myelodysplastic syndrome. 10.Pancreatitis. PAST SURGICAL HISTORY: 1. Back surgery. 2. Bariatric surgery. 3. Valvular heart surgery. 4. Cholecystectomy. 5. Intestinal bypass and surgery for prolapsed rectum. SOCIAL HISTORY: Negative for smoking, drug abuse or alcohol abuse. MEDICATIONS: Medications prior to admission included: 1. Zyloprim. 2. Eliquis. 3. Melatonin. 4. Methotrexate. 5. Vitamin D2. 6. Xanax. 7. Lomotil. 8. Synthroid. 9. Reglan. 10.Restoril. 11.Xeljanz. 12.Prolia. 13.Aricept. 14.Protonix. 15.Prednisone. 16.Lopressor. 17.Patient had also been on Bactrim. ALLERGIES: ALLERGIES include KLONOPIN, which causes hallucinations. REVIEW OF SYSTEMS: As per HPI. Other systems negative. PHYSICAL EXAMINATION: Patient is currently comfortable, awake, alert, oriented x3. She is not in any acute distress. Blood pressure is 105/73, heart rate of 103 per minute. Patient is afebrile. EXAMINATION OF THE HEART: S1, S2. EXAMINATION OF LUNGS: Bilateral breath sounds are heard. ABDOMEN: Soft, non-tender. Examination of lower extremities shows no evidence of edema. SOLAR PV INSTALLER exam is grossly intact. LABS: Sodium 128, potassium 4.4, chloride 93, hemoglobin 10.8, serum creatinine 0.7. UA shows sodium of 12, WBCs 118. No protein or blood. ASSESSMENT: 1. Hyponatremia; appears to be hypovolemic. Patient received a normal saline bolus. She also received a small dose of IV Lasix. Her sodium has improved. I will resume normal saline and recheck serum sodium in 4-5 hours. Urine osmolality will be ordered along with TSH and random cortisol level as well. Patient is encouraged to increase her oral intake of protein. 2. Recent urinary tract infection. 3. Gastroesophageal reflux disease. 4. History of rheumatoid arthritis, maintained on methotrexate. 5. History of atrial fibrillation, maintained on Eliquis. PLAN: Start saline at 60 mL/hour. Repeat labs in 4 hours. Check urine osmolality, TSH and cortisol level. Thank you for this consultation. Will continue to follow the patient with you during her hospitalization. JAQUELIN / AKILA: [id number] /
[2018-08-06] MEDS ORDERED: VANCOMYCIN IV PER PHARMACY 1 EACH MISC MISCELLANE PRN (15:10)
[2018-08-06] MEDS ORDERED: VANCOMYCIN 1,250 MG in SODIUM CHLORIDE 0.9% 250 ML IVPB ONE (16:00)
[2018-08-06 16:15] LABS: Appearance,Urine Turbid (Clear); Bacteria,Urine Moderate /hpf; Bilirubin,Urine Negative (Negative); Blood,Urine Small (Negative); Color,Urine Yellow; Glucose,Urine (UA) Negative (Negative); Ketones,Urine Negative (Negative); Leukocyte Esterase,Urine Large (Negative); Mucus,Urine Rare /hpf; Nitrite,Urine Negative (Negative); Protein,Urine 1+ (Negative); RBC,Urine 8 /hpf (0-5); Specific Gravity,Urine 1.016 (1.001-1.035); Urobilinogen,Urine <2.0 mg/dL (<2.0)
[2018-08-06] MEDS: PIPERACILLIN-TAZOBACTAM 3.375 GM in DEXTROSE/WATER 1 50ML.BAG IVPB SCH ×2 (16:51→22:16)
--- NOTE | 2018-08-06 16:54 | HP ---
HISTORY AND PHYSICAL CHIEF COMPLAINT: Weakness. HISTORY OF PRESENT ILLNESS: This 82-year-old woman with a past medical history of multiple medical problems such as atrial fibrillation, history of GERD, hard of hearing, DJD, history of rheumatoid arthritis, history of back surgery, bariatric surgery, history of anxiety, depression, being followed by Dr. Ariadne Henderson in the outpatient setting, was recently admitted with UTI with sepsis. E coli was grown from the culture. Patient responded to antibiotics. E coli was resistant to multiple antibiotics. The patient improved significantly. The patient went home, but currently the patient complains of tiredness and weakness, and she is unable to do most of her activities. The patient came to [facility], admitted for further evaluation and treatment. On admission patient was found to be hyponatremic at 123. Patient was slightly dehydrated. Patient admitted for further evaluation and treatment. UA is still showing some WBCs. There is no history of any fever or rigors. No history of any headache, loss of consciousness, seizures. The patient did have an abdominal CT scan on 04/05/2018 which showed some exophytic cysts in the kidneys; otherwise moderate-sized hiatal hernia. No other abnormalities. A chest x-ray was also done currently which showed bilateral atelectasis. There is no history of any fever, rigors or chills. No history of headache, loss of consciousness, seizures. PAST MEDICAL HISTORY: 1. History of atrial fibrillation. 2. History of GERD. 3. History of memory impairment. 4. DJD. 5. Rheumatoid arthritis. 6. History of myelodysplastic syndrome. HOME MEDICATIONS: 1. Prednisone taper daily. 2. Cyclosporine 0.05% one drop b.i.d. 3. Vitamins 1 daily. 4. Effexor XR 150 mg p.o. daily. 5. Tofacitinib 5 mg p.o. b.i.d. 6. Restoril 30 mg at bedtime. 7. Protonix 40 mg daily. 8. Mycostatin 1 application daily p.r.n. 9. Lopressor 50 mg p.o. b.i.d. 10.Reglan 10 mg b.i.d. p.r.n. 11.Methotrexate 10 mg p.o. Fridays. 12.Melatonin 10 mg at bedtime. 13.Synthroid 137 mcg p.o. daily. 14.Atrovent 1 spray nasally b.i.d. 15.Estrace Cream 1 application vaginally Wednesday, Wednesday, Wednesday. 16.Vitamin D2 50,000 p.o. on Wednesday. 17.Aricept 5 mg p.o. at bedtime. 18.Lomotil 1 tablet p.o. daily p.r.n. 19.Prolia 60 mg subcutaneously q.180 days. 20.Calcium 600 mg p.o. daily. 21.Eliquis 5 mg p.o. b.i.d. 22.Zyloprim 100 mg p.o. daily. 23.Xanax 0.25 p.o. q.i.d. ALLERGIES: KLONOPIN. FAMILY HISTORY: History of myocardial infarction in the family. SOCIAL HISTORY: No history of smoking. No history of alcohol intake. REVIEW OF SYSTEMS: ENT: Diminished hearing. Diminished vision. CARDIOVASCULAR SYSTEM: As mentioned earlier. RESPIRATORY SYSTEM: As mentioned earlier. GI: As mentioned earlier. : As mentioned earlier. NERVOUS SYSTEM: As mentioned earlier. ALLERGY/IMMUNOLOGY: No asthma, hayfever. MUSCULOSKELETAL: As mentioned earlier. HEMATOLOGY/ONCOLOGY: No history of anemia. ENDOCRINE: History of hypothyroidism. CONSTITUTIONAL: As mentioned earlier. DERMATOLOGY: Negative. RHEUMATOLOGY: Negative. PSYCHIATRY: As mentioned earlier. PHYSICAL EXAMINATION: Patient is alert and oriented x3. Pulse 109, blood pressure 137/61, respiration 20, temperature is 97.4, pulse ox 100% on room air. HEENT: Conjunctivae normal. Oral mucosa is dry. NECK: No jugular venous distention. No carotid bruit. No lymph node enlargement. CARDIOVASCULAR SYSTEM: S1, S2 muffled. Ejection systolic murmur. RESPIRATORY SYSTEM: Breath sounds diminished at the bases. No rhonchi. No crackles. ABDOMEN: Soft, non-tender. No mass palpable. LEGS: No edema. No swelling. NERVOUS SYSTEM: Higher functions as mentioned earlier. Moves all 4 limbs. No focal motor or sensory deficit. LYMPHATICS: No lymph node palpable in neck, axillae or groin. SKIN: No ulcer, rash, bleeding. LABS AT THIS TIME: WBC 6.1, hemoglobin 10.8, MCV 104.4, sodium 128. UA noted. ASSESSMENT: 1. Generalized weakness and tiredness for evaluation. 2. Rule out urinary tract infection with sepsis. 3. Dehydration with prerenal factors with no obvious renal failure. 4. Hyponatremia. 5. Anemia, macrocytic. 6. History of recent urinary tract infection with sepsis with resistant Escherichia coli. 7. Atrial fibrillation. 8. Gastroesophageal reflux disease. 9. Hard of hearing. 10.Memory impairment. 11.Degenerative joint disease. 12.History of rheumatoid arthritis. 13.Macular degeneration. 14.History of pancreatitis. 15.History of myelodysplastic syndrome. 16.History of back surgery. 17.History of bariatric surgery. 18.History of anxiety, depression. RECOMMENDATIONS AND DISCUSSION: In this 82-year-old woman who presented with multiple complex medical issues, we will monitor the patient closely, continue the current medications, continue with symptomatic treatment. Will initiate broad-spectrum IV antibiotics. DVT prophylaxis. Otherwise I would also recommend checking serum cortisol. Continue the rest of the medications. A CT scan of the brain was also done which showed no obvious acute abnormality except cerebral atrophy. I would also recommend continued IV fluids. Monitor blood pressure closely and monitor sodium also closely. I would also recommend PT/OT evaluation and licensed master social worker to consider possible ECF rehab. Once again, the prognosis is guarded. I will initiate Zosyn and vancomycin at this time. MMODL / IJN: [id number] /
--- NOTE | 2018-08-06 18:21 | CONS ---
CONSULTATION CHIEF COMPLAINT: Weakness, fatigue and tiredness. This is an 82-year-old lady who was recently in the hospital with urinary tract infection and sepsis, was discharged home on Wednesday; comes back to hospital on Wednesday complaining of fatigue, tiredness and weakness. Cardiology had been consulted because of her cardiac history and elevated BNP. Her clinical presentation is not consistent with a diagnosis of acute exacerbation of congestive heart failure. She is not short of breath, does not have leg edema, does not have crackles in her lungs. Elevated BNP is simply due to her congestive heart failure. She has mild cardiomegaly. Patient at her last admission again primarily came into hospital due to atrial fibrillation and sepsis. Patient has a history of mitral valve annuloplasty. Her labs on this admission revealed a hemoglobin of 10.8. BUN is 18, creatinine 0.7. Sodium levels are low. They dropped from 134 on the last admission. Her BNP is 5920; that is slightly elevated compared to where we were. Troponin is negative. EKG shows atrial fibrillation with nonspecific ST-T wave changes. Patient is currently being treated with antibiotic for possible pneumonia. She is on Eliquis for the atrial fibrillation. Her Lasix is on hold. An echocardiogram at last admission showed an ejection fraction of 55% to 60%. PAST MEDICAL HISTORY: Significant for: 1. Chronic atrial fibrillation. 2. Rheumatoid arthritis. 3. Osteoarthritis. 4. Hypothyroidism. 5. Macular degeneration. 6. Myelodysplastic syndrome. MEDICATIONS: Medications include: 1. Prednisone. 2. Cyclosporine. 3. Effexor. 4. Restoril. 5. Protonix. 6. Lopressor. 7. Methotrexate. 8. Synthroid. 9. Eliquis. 10.Zyloprim. 11.Xanax. ALLERGIES: KLONOPIN. FAMILY HISTORY: Negative for premature coronary artery disease. SOCIAL HISTORY: Negative for current smoking, EtOH abuse or drug abuse. REVIEW OF SYSTEMS: HEENT is unremarkable. CARDIAC: As described above. RESPIRATORY: As described above. GI: Negative. GENITOURINARY: Negative. ALLERGY/IMMUNOLOGY: Negative. SKIN: Negative. MUSCULOSKELETAL: Significant for arthritis. PSYCHOSOCIAL: Negative. ENDOCRINE: Negative. HEMATOLOGICAL: Negative. DERMATOLOGICAL: Negative. CONSTITUTIONAL: Negative. PHYSICAL EXAMINATION: Patient is comfortable at rest. Afebrile. Heart rate is 90 beats per minute. Blood pressure is 105/73, respiratory rate 18. Chest exam reveals diminished air entry at the bases. I do not hear any crackles or rhonchi. Heart exam reveals first and second heart sounds, irregular rhythm. Systolic murmur at the left lower sternal border. Abdomen is soft. Examination of extremities did not reveal any edema. Peripheral pulses are felt. ASSESSMENT: 1. Chronic systolic heart failure. 2. Chronic atrial fibrillation with controlled ventricular rate. 3. Possible pneumonia. 4. Mitral regurgitation, status post mitral valve annuloplasty. 5. Hyponatremia. PLAN: I agree with the antibiotic. Continue the Eliquis. Continue the metoprolol. Hold the Lasix at this time. MMODL / IJN: [id number] /
--- NOTE | 2018-08-06 19:17 | XR ---
EXAMINATION TYPE: XR chest 1V portable DATE OF EXAM: 08/06/2018 COMPARISON: 08/05/2018 HISTORY: Central line placement. TECHNIQUE: Single frontal view of the chest is obtained. FINDINGS: Platelike subsegmental atelectasis is seen within the left midlung. Central pulmonary vasc ular engorgement is again noted examination of cardiomegaly. Generalized osseous demineralization is present. Patient is rotated shifting the mediastinum to the right. There is a new central line with i ts distal tip in the very low right atrium. Post CABG changes and cardiac valvular replacement are se en. IMPRESSION: New right internal jugular central venous catheter placed deep within the right atrium. Retraction of approximately 7 to 8 cm is recommended for optimal placement. Otherwise overall stable exam from the prior.
[2018-08-06] MEDS: DONEPEZIL 5 MG TAB PO SCH (20:46)
[2018-08-06] MEDS: IPRATROPIUM BROMIDE 0.06% NASAL SPRAY (15 ML) EA NOSTRIL SCH (20:46)
[2018-08-06] MEDS: APIXABAN 5 MG TAB PO SCH (20:46)
[2018-08-06] MEDS: METOPROLOL TARTRATE 50 MG TAB PO SCH (20:47)
[2018-08-06] MEDS: MELATONIN 5 MG TABLET PO SCH (20:47)
[2018-08-06] MEDS: TEMAZEPAM 30 MG CAP PO SCH (20:50)
[2018-08-06] MEDS: Tofacitinib Citrate [Xeljanz] 5 MG PO SCH (20:52)
[2018-08-07 06:38] LABS: Anisocytosis Slight; Basophils % (A) 0 %; Eosinophils % (A) 0 %; HCT 33.3 % (34.0-46.0); HGB 10.5 gm/dL (11.4-16.0); Hypochromasia Slight; Lymphocytes # (A) 0.6 k/uL (1.0-4.8); Lymphocytes % (A) 10 %; MCH 33.7 pg (25.0-35.0); MCHC 31.5 g/dL (31.0-37.0); MCV 107.1 fL (80.0-100.0); Macrocytosis Marked; Mean Platelet Volume 7.3; Monocytes # (A) 0.5 k/uL (0-1.0); Monocytes % (A) 9 %; Neutrophils % (A) 78 %; Platelet Count 401 k/uL (150-450); RBC 3.11 m/uL (3.80-5.40); WBC 6.3 k/uL (3.8-10.6)
[2018-08-07] MEDS: LEVOTHYROXINE 137 MCG TAB PO SCH (06:52)
[2018-08-07] MEDS: PANTOPRAZOLE 40 MG TABLET PO SCH (06:52)
[2018-08-07 06:55] LABS: Calcium 8.1 mg/dL (8.4-10.2)
[2018-08-07 06:58] LABS: Potassium 4.5 mmol/L (3.5-5.1)
[2018-08-07] MEDS: APIXABAN 5 MG TAB PO SCH ×2 (08:24→20:44)
[2018-08-07] MEDS: VANCOMYCIN 1,000 MG in SODIUM CHLORIDE 0.9% 250 ML IVPB SCH ×2 (08:24→22:32)
[2018-08-07] MEDS: ALLOPURINOL 100 MG TAB PO SCH (08:24)
[2018-08-07] MEDS: cycloSPORINE 0.05% OPHTH 0.4 ML DROPERETTE BOTH EYES SCH ×2 (08:25→20:44)
[2018-08-07] MEDS: FOLIC ACID 1 MG TAB PO SCH (08:25)
[2018-08-07] MEDS: CALCIUM CARBONATE 500 MG CHEWABLE PO SCH (08:25)
[2018-08-07] MEDS: IPRATROPIUM BROMIDE 0.06% NASAL SPRAY (15 ML) EA NOSTRIL SCH ×2 (08:25→20:45)
[2018-08-07] MEDS: METOPROLOL TARTRATE 50 MG TAB PO SCH ×2 (08:25→20:45)
[2018-08-07] MEDS: predniSONE 10 MG TAB PO SCH (08:26)
[2018-08-07] MEDS: Tofacitinib Citrate [Xeljanz] 5 MG PO SCH ×2 (08:26→20:45)
[2018-08-07] MEDS ORDERED: VIT A,C & E-LUTEIN-MINERALS 1 EACH TAB ONE (08:27)
[2018-08-07] MEDS: MULTIVITAMINS, THERA 1 EACH TAB PO SCH (08:27)
[2018-08-07] MEDS: THIAMINE 100 MG TAB PO SCH (08:27)
[2018-08-07] MEDS: VENLAFAXINE HCL ER 150 MG CAP PO SCH (08:27)
[2018-08-07] MEDS: VIT A,C & E-LUTEIN-MINERALS 1 EACH TAB PO SCH (08:27)
[2018-08-07] MEDS: ALPRAZolam 0.25 MG TAB PO SCH ×4 (08:35→20:45)
[2018-08-07] MEDS: PIPERACILLIN-TAZOBACTAM 3.375 GM in DEXTROSE/WATER 1 50ML.BAG IVPB SCH ×3 (08:35→22:33)
[2018-08-07] MEDS: SODIUM CHLORIDE 0.9% 1,000 ML IV SCH (11:23)
--- NOTE | 2018-08-07 14:57 | P.PN ---
Subjective Progress Note Date: 08/07/18 This is an 82-year-old female patient who presented to the emergency department with increasing fatigue and weakness. She was recently discharged home after treatment for sepsis with UTI. Cardiology was consulted secondary to elevated BNP. The patient's clinical presentation was not considered that of an a person in acute congestive heart failure. Patient does have chronic congestive heart failure and atrial fibrillation. Patient has been started on IV antibiotic therapy and is feeling better today. Her heart rate is under good control. She is anticoagulated with Eliquis. She denies any chest discomfort, shortness breath or palpitations. Objective - Vital Signs Vital signs: Vital Signs Temp 97.1 F L 08/07/18 12:00 Pulse 95 08/07/18 12:00 Resp 20 08/07/18 12:00 BP 134/77 08/07/18 12:00 Pulse Ox 98 08/07/18 12:00 Intake & Output 08/06/18 08/07/18 08/07/18 18:59 06:59 18:59 Intake Total 75 750 240 Balance 75 750 240 Weight 54.5 kg Intake: IV 750 0.9 750 Intake, IV Titration 75 Amount Sodium Chloride 0.9% 1, 75 000 ml @ 75 mls/hr IV . [id number] [facility] Rx#:[id number] Oral 240 Other: Voiding Method Bedpan Diaper # Bowel Movements 1 1 - Exam Gen.: Patient is seen lying in bed in no acute distress Lungs: Clear to auscultation wheezes rales or rhonchi appreciated, respirations are even and unlabored Heart: Irregularly irregular, S1-S2 are heard Abdomen: Soft, nondistended, nontender. Bowel sounds positive Extremities: No lower extremity edema is noted, pedal pulses are palpable bilaterally Neuro: Patient is alert and oriented 3, no tremors noted - Labs CBC & Chem 7: 08/07/18 06:13 08/07/18 06:13 Labs: Abnormal Lab Results - Last 24 Hours (Table) 08/06/18 08/06/18 08/07/18 Range/Units 15:06 15:14 06:13 RBC 3.11 L (3.80-5.40) m/uL Hgb 10.5 L (11.4-16.0) gm/dL Hct 33.3 L (34.0-46.0) % MCV 107.1 H (80.0-100.0) fL RDW 17.0 H (11.5-15.5) % Lymphocytes # 0.6 L (1.0-4.8) k/uL Sodium 127 L (137-145) mmol/L Chloride (98-107) mmol/L BUN (7-17) mg/dL Calcium (8.4-10.2) mg/dL Urine Appearance Turbid H (Clear) Urine Protein 1+ H (Negative) Urine Blood Small H (Negative) Ur Leukocyte Esterase Large H (Negative) Urine RBC 8 H (0-5) /hpf Urine WBC >182 H (0-5) /hpf Urine WBC Clumps Many H (None) /hpf Urine Bacteria Moderate H (None) /hpf Urine Mucus Rare H (None) /hpf 08/07/18 Range/Units 06:13 RBC (3.80-5.40) m/uL Hgb (11.4-16.0) gm/dL Hct (34.0-46.0) % MCV (80.0-100.0) fL RDW (11.5-15.5) % Lymphocytes # (1.0-4.8) k/uL Sodium 130 L (137-145) mmol/L Chloride 96 L (98-107) mmol/L BUN 20 H (7-17) mg/dL Calcium 8.1 L (8.4-10.2) mg/dL Urine Appearance (Clear) Urine Protein (Negative) Urine Blood (Negative) Ur Leukocyte Esterase (Negative) Urine RBC (0-5) /hpf Urine WBC (0-5) /hpf Urine WBC Clumps (None) /hpf Urine Bacteria (None) /hpf Urine Mucus (None) /hpf Microbiology - Last 24 Hours (Table) 08/06/18 11:01 Blood Culture - Preliminary Blood No Growth after 24 hours 08/06/18 15:06 Urine Culture - Preliminary Urine,Voided Assessment and Plan Assessment: Pneumonia Recent urinary tract infection Chronic systolic heart failure without exacerbation Chronic atrial fibrillation, controlled and anticoagulated Mitral regurgitation status post mitral valve annuloplasty Hyponatremia improved Plan: Obtain echocardiogram to evaluate LV size and systolic function. Continue with antibiotic therapy. No need for Lasix at this time. Continue beta ahsan and Eliquis. From a cardiac standpoint, the patient may be transferred to the [facility] unit with remote telemetry monitoring.
--- NOTE | 2018-08-07 15:28 | PN ---
PROGRESS NOTE Patient is seen for followup for hyponatremia which appears to be hypovolemic. Patient started on saline. The serum sodium is up to 130 from 123 the day before. Currently, patient denies any significant complaints. PHYSICAL EXAMINATION: Blood pressure is 134/77, heart rate 95 per minute. She is afebrile. Examination of the heart S1, S2. Examination of lungs bilateral breath sounds are heard. Abdomen is soft, nontender. Examination of lower extremities shows no evidence of edema. TRIPLE VALVE TESTER exam is grossly intact. LABS: Show sodium 130, potassium 4.5, BUN 20, serum creatinine 0.78, hemoglobin 10.5 g/dL. ASSESSMENT: 1. Hyponatremia which appears to be hypovolemic and currently improving with normal saline. We will continue with the saline for 1 more day. The patient is advised to avoid drinking large amounts of free water. She is also advised to increase her oral protein intake. TSH was 3.7, and cortisol was initially 4 and repeat cortisol was at 12, which is not too low. 2. Weakness, currently improved. PLAN: Continue to encourage increased oral intake. Maintain some degree of free water restriction. Continue with normal saline. Repeat labs in a.m. MMODL / IJN: [id number] /
--- NOTE | 2018-08-07 15:30 | P.PN ---
Subjective Progress Note Date: 08/07/18 Principal diagnosis: Weakness I am dictating progress note for Dr. Rose Interval history: Patient is an 82-year-old female who presents with chief complaint weakness. Patient was recently in the hospital for a urinary tract infection sepsis and discharged on Wednesday. She states she's been getting gradually weaker since being home. She cannot identify any localizing symptoms. Patient had mild shortness of breath. In the emergency room evaluating of this patient is remarkable for hyponatremia, and a BNP of just under 6000. Chest x-ray appears congested. Clinically, patient is in acute congestive heart failure exacerbation. Consider SIADH given fluid overloaded hyponatremia. not believe this to be a source of the patient's presenting symptoms. Urine studies were added. Case discussed with Dr. Kendall who accepts admission with consult to cardiology and nephrology. Results discussed with the patient, she is agreeable with admission. Patient given a dose of lasix in the ED. 08/07/2018 Patient is seen and examined this morning. She is hard to cardiology consultation. Patient is on IV antibiotic Zosyn and vancomycin for possible community accquired pneumonia. She is feeling better since she started on antibiotic. She denied any fever chills diaphoresis. Denied chest pain or palpitation. Denied worsening shortness of breath cough or sputum production. Denied abdominal pain nausea vomiting diarrhea constipation. Objective - Vital Signs Vital signs: Vital Signs Temp 97.1 F L 08/07/18 12:00 Pulse 95 08/07/18 12:00 Resp 20 08/07/18 12:00 BP 134/77 08/07/18 12:00 Pulse Ox 98 08/07/18 12:00 Intake & Output 08/06/18 08/07/18 08/07/18 18:59 06:59 18:59 Intake Total 75 750 240 Balance 75 750 240 Weight 54.5 kg Intake: IV 750 0.9 750 Intake, IV Titration 75 Amount Sodium Chloride 0.9% 1, 75 000 ml @ 75 mls/hr IV . [id number] [facility] Rx#:[id number] Oral 240 Other: Voiding Method Bedpan Diaper # Bowel Movements 1 1 - Exam PHYSICAL EXAM: VITAL SIGNS: As mentioned above GENERAL: Resting in bed not in any acute discomfort HEENT: Conjunctivae normal. eyes normal. NECK: No JVD. Supple CARDIOVASCULAR: S1, S2 muffled. No murmur RESPIRATION: Breath sounds diminished in the bases. Catheter drawn K. ABDOMEN: Soft, nontender . No guarding. .Bowel sounds heard. LEGS: No edema. no swelling PSYCHIATRY: Alert and oriented 3, mood and affect normal. NERVOUS SYSTEM: Oriented 3 no focal neuro deficit noted Skin: no ulcer no rash Joints: No active swelling. No inflammation. Active Medications Acetaminophen (Tylenol Tab) 650 mg PO Q6HR PRN PRN Reason: Fever and/ or Pain Last Admin: 08/06/18 20:42 Dose: 650 mg Allopurinol (Zyloprim) 100 mg PO DAILY [facility] Last Admin: 08/07/18 08:24 Dose: 100 mg Alprazolam (Xanax) 0.25 mg PO QID [facility] Last Admin: 08/07/18 11:30 Dose: 0.25 mg Apixaban (Eliquis) 5 mg PO BID [facility] Last Admin: 08/07/18 08:24 Dose: 5 mg Calcium Carbonate/Glycine (Tums) 500 mg PO DAILY [facility] Last Admin: 08/07/18 08:25 Dose: 500 mg Cyclosporine (Restasis 0.05% Ophth Soln) 1 drops BOTH EYES Q12HR [facility] Last Admin: 08/07/18 08:25 Dose: 1 drops Diphenoxylate HCl/Atropine (Lomotil) 1 each PO DAILY PRN PRN Reason: Diarrhea Donepezil HCl (Aricept) 5 mg PO HS [facility] Last Admin: 08/06/18 20:46 Dose: 5 mg Ergocalciferol (Vitamin D2) 50,000 unit PO Fr@1200 [facility] Estradiol (Estrace Cream) 1 applic VAGINAL MoWeFr@2100 [facility] Folic Acid (Folic Acid) 1 mg PO DAILY [facility] Last Admin: 08/07/18 08:25 Dose: 1 mg Sodium Chloride (Saline 0.9%) 1,000 mls @ 75 mls/hr IV .[id number] [facility] Last Admin: 08/07/18 11:23 Dose: 75 mls/hr Piperacillin/Tazobactam/ (Dextrose 3.375 gm/ IV Solution) 50 mls @ 12.5 mls/hr IVPB Q8HR [facility] Last Admin: 08/07/18 08:35 Dose: 12.5 mls/hr Vancomycin HCl 1,000 mg/ (Sodium Chloride) 250 mls @ 125 mls/hr IVPB Q16H [facility] Last Admin: 08/07/18 08:24 Dose: 125 mls/hr Ipratropium [place] (Atrovent Nasal) 1 spray EA NOSTRIL BID [facility] Last Admin: 08/07/18 08:25 Dose: 1 spray Levothyroxine Sodium (Synthroid) 137 mcg PO DAILY@0630 [facility] Last Admin: 08/07/18 06:52 Dose: 137 mcg Melatonin (Melatonin) 10 mg PO HS [facility] Last Admin: 08/06/18 20:47 Dose: 10 mg Methotrexate (Methotrexate) 10 mg PO Fr@1200 [facility] Metoclopramide HCl (Reglan) 10 mg PO BID PRN PRN Reason: Nausea Metoprolol Tartrate (Lopressor) 50 mg PO BID [facility] Last Admin: 08/07/18 08:25 Dose: 50 mg Multivitamins (Theragran) 1 each PO DAILY@1200 [facility] Last Admin: 08/07/18 08:27 Dose: 1 each Multivitamins/Minerals (Ivite) 1 each PO DAILY [facility] Last Admin: 08/07/18 08:27 Dose: 1 each Naloxone HCl (Narcan) 0.2 mg IV Q2M PRN PRN Reason: Opioid Reversal Tofacitinib Citrate ([Xeljanz] 5 Mg) 5 mg PO BID [facility] Last Admin: 08/07/18 08:26 Dose: Not Given Nystatin (Mycostatin Cream) 1 applic TOPICAL DAILY PRN PRN Reason: Rash Pantoprazole Sodium (Protonix) 40 mg PO [id number]-[id number] [facility] Last Admin: 08/07/18 06:52 Dose: 40 mg Prednisone () 10 mg PO DAILY [facility] Last Admin: 08/07/18 08:26 Dose: 10 mg Temazepam (Restoril) 30 mg PO [facility] Last Admin: 08/06/18 20:50 Dose: 30 mg Thiamine HCl (Vitamin B-1) 100 mg PO DAILY@1200 [facility] Last Admin: 08/07/18 08:27 Dose: 100 mg Venlafaxine HCl (Effexor Xr) 150 mg PO DAILY [facility] Last Admin: 08/07/18 08:27 Dose: 150 mg - Labs CBC & Chem 7: 08/07/18 06:13 08/07/18 06:13 Labs: Abnormal Lab Results - Last 24 Hours (Table) 08/06/18 08/06/18 08/07/18 Range/Units 15:06 15:14 06:13 RBC 3.11 L (3.80-5.40) m/uL Hgb 10.5 L (11.4-16.0) gm/dL Hct 33.3 L (34.0-46.0) % MCV 107.1 H (80.0-100.0) fL RDW 17.0 H (11.5-15.5) % Lymphocytes # 0.6 L (1.0-4.8) k/uL Sodium 127 L (137-145) mmol/L Chloride (98-107) mmol/L BUN (7-17) mg/dL Calcium (8.4-10.2) mg/dL Urine Appearance Turbid H (Clear) Urine Protein 1+ H (Negative) Urine Blood Small H (Negative) Ur Leukocyte Esterase Large H (Negative) Urine RBC 8 H (0-5) /hpf Urine WBC >182 H (0-5) /hpf Urine WBC Clumps Many H (None) /hpf Urine Bacteria Moderate H (None) /hpf Urine Mucus Rare H (None) /hpf 08/07/18 Range/Units 06:13 RBC (3.80-5.40) m/uL Hgb (11.4-16.0) gm/dL Hct (34.0-46.0) % MCV (80.0-100.0) fL RDW (11.5-15.5) % Lymphocytes # (1.0-4.8) k/uL Sodium 130 L (137-145) mmol/L Chloride 96 L (98-107) mmol/L BUN 20 H (7-17) mg/dL Calcium 8.1 L (8.4-10.2) mg/dL Urine Appearance (Clear) Urine Protein (Negative) Urine Blood (Negative) Ur Leukocyte Esterase (Negative) Urine RBC (0-5) /hpf Urine WBC (0-5) /hpf Urine WBC Clumps (None) /hpf Urine Bacteria (None) /hpf Urine Mucus (None) /hpf Microbiology - Last 24 Hours (Table) 08/06/18 11:01 Blood Culture - Preliminary Blood No Growth after 24 hours 08/06/18 15:06 Urine Culture - Preliminary Urine,Voided Assessment and Plan Assessment: Possible community acquired pneumonia Recent urinary tract infection As above metabolic encephalopathy Groaning systolic heart failure without exacerbation Chronic atrial fibrillation controlled ,on anticoagulants Mitral regurgitation status post mitral valve annuloplasty Hyponatremia, improved GERD Rheumatoid arthritis Thyroid disorder Overactive bladder Memory impairment Anemia of chronic disease Plan: Continue current medication. Antibiotic in the form of Zosyn and gentamicin. Monitor CBC and BMP in a.m. Patient is being evaluated by cardiology service. We'll be obtaining an echocardiogram to evaluate LV size and systolic function. Monitor patient closely. Encourage activities as tolerated. Prognosis is guarded due to complex medical problems. Further plan is based on her clinical course. The impression and plan of care has been dictated as directed. : I performed a history and examination of this patient, discussed the same with the dictator. I agree with the dictator's note ,documented as a scribe. Any additional findings or plans will be noted.
[2018-08-07] MEDS: DIPHENOX-ATROP 2.5-0.025 MG 1 EACH TAB PO PRN (18:51)
[2018-08-07] MEDS: TEMAZEPAM 30 MG CAP PO SCH (20:45)
[2018-08-07] MEDS: MELATONIN 5 MG TABLET PO SCH (20:45)
[2018-08-07] MEDS: DONEPEZIL 5 MG TAB PO SCH (20:45)
[2018-08-08] MEDS: DIPHENOX-ATROP 2.5-0.025 MG 1 EACH TAB PO PRN ×2 (01:15→08:30)
[2018-08-08] MEDS: SODIUM CHLORIDE 0.9% 1,000 ML IV SCH ×2 (01:15→17:23)
[2018-08-08] MEDS: PANTOPRAZOLE 40 MG TABLET PO SCH (06:16)
[2018-08-08] MEDS: LEVOTHYROXINE 137 MCG TAB PO SCH (06:16)
[2018-08-08 08:18] LABS: Anisocytosis Slight; Basophils % (A) 0 %; Eosinophils % (A) 1 %; HGB 10.8 gm/dL (11.4-16.0); Lymphocytes # (A) 0.6 k/uL (1.0-4.8); Lymphocytes % (A) 7 %; MCH 34.6 pg (25.0-35.0); MCHC 32.6 g/dL (31.0-37.0); Macrocytosis Marked; Mean Platelet Volume 6.8; Monocytes # (A) 0.7 k/uL (0-1.0); Monocytes % (A) 9 %; Neutrophils # (A) 6.4 k/uL (1.3-7.7); Neutrophils % (A) 81 %; Platelet Count 367 k/uL (150-450); RBC 3.12 m/uL (3.80-5.40); RDW 17.8 % (11.5-15.5); WBC 7.9 k/uL (3.8-10.6)
[2018-08-08] MEDS: predniSONE 10 MG TAB PO SCH (08:18)
[2018-08-08] MEDS: CALCIUM CARBONATE 500 MG CHEWABLE PO SCH (08:18)
[2018-08-08] MEDS: METOPROLOL TARTRATE 50 MG TAB PO SCH ×2 (08:18→21:29)
[2018-08-08] MEDS ORDERED: VIT A,C & E-LUTEIN-MINERALS 1 EACH TAB ONE (08:18)
[2018-08-08] MEDS: FOLIC ACID 1 MG TAB PO SCH (08:18)
[2018-08-08] MEDS: PIPERACILLIN-TAZOBACTAM 3.375 GM in DEXTROSE/WATER 1 50ML.BAG IVPB SCH ×3 (08:18→23:52)
[2018-08-08] MEDS: VENLAFAXINE HCL ER 150 MG CAP PO SCH (08:18)
[2018-08-08] MEDS: VIT A,C & E-LUTEIN-MINERALS 1 EACH TAB PO SCH (08:18)
[2018-08-08] MEDS: ALPRAZolam 0.25 MG TAB PO SCH ×4 (08:18→22:38)
[2018-08-08] MEDS: ALLOPURINOL 100 MG TAB PO SCH (08:18)
[2018-08-08] MEDS: APIXABAN 5 MG TAB PO SCH ×2 (08:18→21:30)
[2018-08-08] MEDS: cycloSPORINE 0.05% OPHTH 0.4 ML DROPERETTE BOTH EYES SCH ×2 (08:19→21:30)
[2018-08-08] MEDS: Tofacitinib Citrate [Xeljanz] 5 MG PO SCH (08:19)
[2018-08-08] MEDS: IPRATROPIUM BROMIDE 0.06% NASAL SPRAY (15 ML) EA NOSTRIL SCH ×2 (08:19→21:28)
[2018-08-08 08:23] LABS: Anion Gap 8 mmol/L; Blood Urea Nitrogen 12 mg/dL (7-17); Calcium 8.5 mg/dL (8.4-10.2); Carbon Dioxide 24 mmol/L (22-30); Chloride 103 mmol/L (98-107); Glucose 84 mg/dL (74-99); Potassium 3.8 mmol/L (3.5-5.1); Sodium 135 mmol/L (137-145)
[2018-08-08] MEDS: THIAMINE 100 MG TAB PO SCH (11:05)
[2018-08-08] MEDS: MULTIVITAMINS, THERA 1 EACH TAB PO SCH (11:05)
[2018-08-08] MEDS: ACETAMINOPHEN TAB 325 MG TAB PO PRN ×2 (11:05→22:50)
[2018-08-08] MEDS ORDERED: TOFACITINIB CITRATE 11 MG PO SCH (11:51)
--- NOTE | 2018-08-08 12:59 | PN ---
PROGRESS NOTE Patient is seen for followup for hyponatremia which was hypovolemic. She has been started on normal saline. Her serum sodium has improved, which is up to 135 today. PHYSICAL EXAMINATION: Blood pressure was 120/70, heart rate 93 per minute. She is afebrile. Examination of the heart, S1, S2. Examination of the lungs, bilateral breath sounds are heard. Abdomen is soft, nontender. Examination of the lower extremities shows no evidence of edema. LINING INSERTER exam is grossly intact. LABS: Show sodium 135, potassium 3.8, serum creatinine 0.64, hemoglobin 10.8 g/dL. ASSESSMENT: 1. Hypovolemic, hyponatremia currently improved with normal saline. Patient is encouraged to maintain good oral intake. I will continue with the saline for one more day and we can discontinue it tomorrow. 2. Urinary tract infection with urine culture growing gram-negative bacilli. Currently maintained on Zosyn. Patient has received vancomycin as well. 3. Rheumatoid arthritis, maintained on methotrexate. 4. Chronic atrial fibrillation, on anticoagulation. 5. Pneumonia, maintained on Zosyn. Patient is also on vancomycin. PLAN: Continue with saline for one more day. Continue to encourage increased oral intake. Continue antibiotics. MMODL / IJN: [id number] /
--- NOTE | 2018-08-08 13:19 | P.PN ---
Subjective Progress Note Date: 08/08/18 This is an 82-year-old female patient who presented to the emergency room with symptoms of increased fatigue and weakness. She was recently discharged home from the hospital after being in with UTI and associated sepsis. A cardiology consultation was requested because of abnormal BNP. Crit patient's clinical presentation was not consistent with congestive heart failure. She was initiated on IV antibiotic therapy and is overall doing better. Heart rate is under adequate control. She is anticoagulated with Eliquis. Blood pressure this morning 120/70 with a heart rate in the 90s. White blood cell count is normal, hemoglobin 10.8, platelet count 367. Sodium 135, potassium 3.8, BUN 12, creatinine 0.6. Objective - Vital Signs Vital signs: Vital Signs Temp 98.1 F 08/08/18 08:15 Pulse 93 08/08/18 08:15 Resp 20 08/08/18 08:15 BP 120/70 08/08/18 08:15 Pulse Ox 98 08/08/18 08:15 Intake & Output 08/07/18 08/08/18 08/08/18 18:59 06:59 18:59 Intake Total 360 825 245 Output Total 200 600 Balance 160 225 245 Weight 55.1 kg Intake: IV 525 75 Sodium Chloride 0.9% 1, 525 75 000 ml @ 75 mls/hr IV . [id number] [facility] Rx#:[id number] Intake, IV Titration 300 50 Amount Piperacillin-Tazobactam 3 50 50 .375 gm In Dextrose/Water 1 50ml.bag @ 12.5 mls/hr IVPB Q8HR [facility] Rx#: [id number] Vancomycin 1,000 mg In 250 Sodium Chloride 0.9% 250 ml @ 125 mls/hr IVPB Q16H [facility] Rx#:[id number] Oral 360 120 Output: Urine 200 600 Other: Voiding Method Bedpan Diaper # Voids 1 1 # Bowel Movements 1 2 1 - Exam PHYSICAL EXAMINATION: GENERAL: 82-year-old female in no acute distress at the time of my examination HEENT: Head is atraumatic, normocephalic. Pupils equal, round. Sclera anicteric. Conjunctiva are clear. Mucous membranes of the mouth are moist. Neck is supple. There is no elevated jugular venous pressure. No carotid bruit is heard. HEART EXAMINATION: Heart S1 and S2 irregularly irregular, systolic murmur is heard CHEST EXAMINATION: Lungs are clear to auscultation and precussion. No chest wall tenderness is noted on palpation or with deep breathing. ABDOMEN: Soft, nontender. Bowel sounds are heard. No organomegaly noted. EXTREMITIES: 2+ peripheral pulses with no evidence of peripheral edema and no calf tenderness noted. NEUROLOGIC patient is awake, alert and oriented X3. . - Labs CBC & Chem 7: 08/08/18 07:31 08/08/18 07:31 Labs: Abnormal Lab Results - Last 24 Hours (Table) 08/08/18 08/08/18 Range/Units 07:31 07:31 RBC 3.12 L (3.80-5.40) m/uL Hgb 10.8 L (11.4-16.0) gm/dL Hct 33.0 L (34.0-46.0) % MCV 106.0 H (80.0-100.0) fL RDW 17.8 H (11.5-15.5) % Lymphocytes # 0.6 L (1.0-4.8) k/uL Sodium 135 L (137-145) mmol/L Microbiology - Last 24 Hours (Table) 08/06/18 15:06 Urine Culture - Preliminary Urine,Voided Gram Neg Bacilli 08/06/18 11:01 Blood Culture - Preliminary Blood No Growth after 24 hours Assessment and Plan Plan: Assessment and plan: #1 Pneumonia #2 Recent urinary tract infection #3 Chronic systolic heart failure without exacerbation #4 Chronic atrial fibrillation, controlled and anticoagulated #5 Mitral regurgitation status post mitral valve annuloplasty #6 Hyponatremia improved Plan Cardiology's perspective, we'll follow this patient with you now on an as- needed basis only, please don't hesitate to call with any questions. She may transfer to medical surgical unit from our standpoint. DNP note has been reviewed, I agree with a documented findings and plan of care. Patient was seen and examined.
[2018-08-08] MEDS: TOFACITINIB CITRATE 11 MG PO SCH (13:27)
[2018-08-08 15:47] VITALS: BMI 23.7
--- NOTE | 2018-08-08 16:54 | P.PN ---
Subjective Progress Note Date: 08/08/18 Progress note being dictated for Dr. Rose. Interval history:Patient is an 82-year-old female who presents with chief complaint weakness. Patient was recently in the hospital for a urinary tract infection sepsis and discharged on Wednesday. She states she's been getting gradually weaker since being home. She cannot identify any localizing symptoms. Patient had mild shortness of breath. In the emergency room evaluating of this patient is remarkable for hyponatremia, and a BNP of just under 6000. Chest x-ray appears congested. Clinically, patient is in acute congestive heart failure exacerbation. Consider SIADH given fluid overloaded hyponatremia. not believe this to be a source of the patient's presenting symptoms. Urine studies were added. Case discussed with Dr. Kendall who accepts admission with consult to cardiology and nephrology. Results discussed with the patient, she is agreeable with admission. Patient given a dose of lasix in the ED. 08/07/2018 Patient is seen and examined this morning. She is hard to cardiology consultation. Patient is on IV antibiotic Zosyn and vancomycin for possible community accquired pneumonia. She is feeling better since she started on antibiotic. She denied any fever chills diaphoresis. Denied chest pain or palpitation. Denied worsening shortness of breath cough or sputum production. Denied abdominal pain nausea vomiting diarrhea constipation. 08/08/2018 maintained on Zosyn and Vancomycin. Continues on normal saline with improving sodium, 135. Breathing improving, maintaining O2 sats in the high 90s on room air. Denies chest pain, palpitations or increased shortness of breath. Objective - Vital Signs Vital signs: Vital Signs Temp 97.6 F 08/08/18 15:53 Pulse 85 08/08/18 15:53 Resp 18 08/08/18 15:53 BP 115/70 08/08/18 15:53 Pulse Ox 95 08/08/18 15:53 Intake & Output 08/07/18 08/08/18 08/08/18 18:59 06:59 18:59 Intake Total 360 825 245 Output Total 200 600 Balance 160 225 245 Weight 55.1 kg 55.1 kg Intake: IV 525 75 Sodium Chloride 0.9% 1, 525 75 000 ml @ 75 mls/hr IV . [id number] [facility] Rx#:[id number] Intake, IV Titration 300 50 Amount Piperacillin-Tazobactam 3 50 50 .375 gm In Dextrose/Water 1 50ml.bag @ 12.5 mls/hr IVPB Q8HR [facility] Rx#: [id number] Vancomycin 1,000 mg In 250 Sodium Chloride 0.9% 250 ml @ 125 mls/hr IVPB Q16H [facility] Rx#:[id number] Oral 360 120 Output: Urine 200 600 Other: Voiding Method Bedpan Diaper # Voids 1 1 # Bowel Movements 1 2 1 - Exam VITAL SIGNS: As above GENERAL: Sitting up in chair, no acute distress HEENT: Conjunctivae normal. eyes normal. Oral mucosa moist NECK: No JVD. Supple CARDIOVASCULAR: S1, S2 muffled. Systolic murmur RESPIRATION: Breath sounds diminished in the bases. ABDOMEN: Soft, nontender . No guarding. .Bowel sounds heard. LEGS: No edema. no swelling PSYCHIATRY: Alert and oriented 3, mood and affect normal. NERVOUS SYSTEM: Oriented 3 no focal neuro deficit noted Skin: no ulcer no rash Joints: No active swelling. No inflammation. - Labs CBC & Chem 7: 08/08/18 07:31 08/08/18 07:31 Labs: Abnormal Lab Results - Last 24 Hours (Table) 08/08/18 08/08/18 Range/Units 07:31 07:31 RBC 3.12 L (3.80-5.40) m/uL Hgb 10.8 L (11.4-16.0) gm/dL Hct 33.0 L (34.0-46.0) % MCV 106.0 H (80.0-100.0) fL RDW 17.8 H (11.5-15.5) % Lymphocytes # 0.6 L (1.0-4.8) k/uL Sodium 135 L (137-145) mmol/L Microbiology - Last 24 Hours (Table) 08/06/18 11:01 Blood Culture - Preliminary Blood No Growth after 48 hours 08/06/18 15:06 Urine Culture - Preliminary Urine,Voided Gram Neg Bacilli Assessment and Plan Assessment: Possible community acquired pneumonia Recent urinary tract infection As above metabolic encephalopathy Hypovolemic hyponatremia, improving Chronic systolic heart failure without exacerbation Chronic atrial fibrillation controlled ,on anticoagulants Mitral regurgitation status post mitral valve annuloplasty GERD Rheumatoid arthritis Thyroid disorder Overactive bladder Memory impairment Anemia of chronic disease Plan: Continue current medication regime ,monitoring and symptomatic treatment. Maintain IV fluids as per nephrology. Anticoagulated with Eliquis. Continue with antibiotics, aggressive pulmonary toileting, nebulized bronchodilators .Cleared for transfer off of telemetry unit to [facility]. Discharge planning in progress for possibly tomorrow. The impression and plan of care has been dictated as directed. : I performed a history and examination of this patient, discussed the same with the dictator. I agree with the dictator's note ,documented as a scribe. Any additional findings or plans will be noted.
[2018-08-08] MEDS: VANCOMYCIN 1,000 MG in SODIUM CHLORIDE 0.9% 250 ML IVPB SCH (17:23)
[2018-08-08] MEDS: TEMAZEPAM 30 MG CAP PO SCH (21:27)
[2018-08-08] MEDS: ESTRADIOL 0.1 MG/GM VAGINAL CREAM 42.5 GM TUBE VAGINAL SCH (21:29)
[2018-08-08] MEDS: MELATONIN 5 MG TABLET PO SCH (21:29)
[2018-08-08] MEDS: DONEPEZIL 5 MG TAB PO SCH (21:30)
[2018-08-09] MEDS: ACETAMINOPHEN TAB 325 MG TAB PO PRN ×3 (05:48→22:43)
[2018-08-09] MEDS: LEVOTHYROXINE 137 MCG TAB PO SCH (06:13)
[2018-08-09] MEDS ORDERED: VANCOMYCIN TROUGH DUE 1 EACH MISC MISCELLANE ONE (07:00)
[2018-08-09 07:28] LABS: Anion Gap 7 mmol/L; Blood Urea Nitrogen 15 mg/dL (7-17); Calcium 8.2 mg/dL (8.4-10.2); Carbon Dioxide 23 mmol/L (22-30); Chloride 107 mmol/L (98-107); Glucose 74 mg/dL (74-99); Potassium 3.7 mmol/L (3.5-5.1); Sodium 137 mmol/L (137-145)
[2018-08-09 07:48] LABS: Anisocytosis Slight; Basophils % (A) 0 %; Eosinophils % (A) 0 %; HCT 28.7 % (34.0-46.0); Hypochromasia Slight; Lymphocytes % (A) 15 %; MCH 33.5 pg (25.0-35.0); MCHC 31.6 g/dL (31.0-37.0); MCV 106.2 fL (80.0-100.0); Macrocytosis Marked; Monocytes # (A) 0.6 k/uL (0-1.0); Monocytes % (A) 9 %; Neutrophils # (A) 4.8 k/uL (1.3-7.7); Neutrophils % (A) 71 %; Platelet Count 280 k/uL (150-450); RDW 17.7 % (11.5-15.5); WBC 6.7 k/uL (3.8-10.6)
[2018-08-09] MEDS: APIXABAN 5 MG TAB PO SCH ×2 (08:01→22:44)
[2018-08-09] MEDS ORDERED: VIT A,C & E-LUTEIN-MINERALS 1 EACH TAB ONE (08:01)
[2018-08-09] MEDS: VIT A,C & E-LUTEIN-MINERALS 1 EACH TAB PO SCH (08:01)
[2018-08-09] MEDS: ALLOPURINOL 100 MG TAB PO SCH (08:01)
[2018-08-09] MEDS: VENLAFAXINE HCL ER 150 MG CAP PO SCH (08:01)
[2018-08-09] MEDS: predniSONE 10 MG TAB PO SCH (08:01)
[2018-08-09] MEDS: METOPROLOL TARTRATE 50 MG TAB PO SCH ×2 (08:01→22:45)
[2018-08-09] MEDS: PANTOPRAZOLE 40 MG TABLET PO SCH (08:01)
[2018-08-09] MEDS: ALPRAZolam 0.25 MG TAB PO SCH ×4 (08:01→22:43)
[2018-08-09] MEDS: CALCIUM CARBONATE 500 MG CHEWABLE PO SCH (08:02)
[2018-08-09] MEDS: FOLIC ACID 1 MG TAB PO SCH (08:02)
[2018-08-09] MEDS: IPRATROPIUM BROMIDE 0.06% NASAL SPRAY (15 ML) EA NOSTRIL SCH ×2 (08:02→22:46)
[2018-08-09] MEDS: cycloSPORINE 0.05% OPHTH 0.4 ML DROPERETTE BOTH EYES SCH ×2 (08:02→22:44)
[2018-08-09] MEDS: TOFACITINIB CITRATE 11 MG PO SCH (08:02)
[2018-08-09] MEDS: PIPERACILLIN-TAZOBACTAM 3.375 GM in DEXTROSE/WATER 1 50ML.BAG IVPB SCH ×3 (08:03→23:02)
[2018-08-09] MEDS: VANCOMYCIN 1,000 MG in SODIUM CHLORIDE 0.9% 250 ML IVPB SCH ×2 (12:11→22:47)
[2018-08-09] MEDS: THIAMINE 100 MG TAB PO SCH (12:59)
[2018-08-09] MEDS: MULTIVITAMINS, THERA 1 EACH TAB PO SCH (12:59)
--- NOTE | 2018-08-09 16:51 | P.PN ---
Subjective Progress Note Date: 08/09/18 Progress note being dictated for Dr. Rose. Interval history:Patient is an 82-year-old female who presents with chief complaint weakness. Patient was recently in the hospital for a urinary tract infection sepsis and discharged on Wednesday. She states she's been getting gradually weaker since being home. She cannot identify any localizing symptoms. Patient had mild shortness of breath. In the emergency room evaluating of this patient is remarkable for hyponatremia, and a BNP of just under 6000. Chest x-ray appears congested. Clinically, patient is in acute congestive heart failure exacerbation. Consider SIADH given fluid overloaded hyponatremia. not believe this to be a source of the patient's presenting symptoms. Urine studies were added. Case discussed with Dr. Kendall who accepts admission with consult to cardiology and nephrology. Results discussed with the patient, she is agreeable with admission. Patient given a dose of lasix in the ED. 08/07/2018 Patient is seen and examined this morning. She is hard to cardiology consultation. Patient is on IV antibiotic Zosyn and vancomycin for possible community accquired pneumonia. She is feeling better since she started on antibiotic. She denied any fever chills diaphoresis. Denied chest pain or palpitation. Denied worsening shortness of breath cough or sputum production. Denied abdominal pain nausea vomiting diarrhea constipation. 08/08/2018 maintained on Zosyn and Vancomycin. Continues on normal saline with improving sodium, 135. Breathing improving, maintaining O2 sats in the high 90s on room air. Denies chest pain, palpitations or increased shortness of breath. 08/09/2018 continues on IV antibiotics, IV fluid hydration. Sodium up to 137. Good diet intake with no nausea or vomiting. Denies abdominal pain. Maintaining O2 sats in the high 90s on room air. Denies chest pain, palpitations or increased shortness of breath. Occasional nonproductive cough. Using bedside commode with assistance. Discharge planning in progress for subacute rehab. Objective - Vital Signs Vital signs: Vital Signs Temp 97.5 F L 08/09/18 14:22 Pulse 81 08/09/18 14:22 Resp 18 08/09/18 14:22 BP 123/65 08/09/18 14:22 Pulse Ox 99 08/09/18 14:22 Intake & Output 08/08/18 08/09/18 08/09/18 18:59 06:59 18:59 Intake Total 245 Balance 245 Weight 55.1 kg 55.1 kg Intake: IV 75 Sodium Chloride 0.9% 1, 75 000 ml @ 75 mls/hr IV . [id number] [facility] Rx#:[id number] Intake, IV Titration 50 Amount Piperacillin-Tazobactam 3 50 .375 gm In Dextrose/Water 1 50ml.bag @ 12.5 mls/hr IVPB Q8HR [facility] Rx#: [id number] Oral 120 Other: Voiding Method Bedside Commode Bedside Commode Bedside Commode # Voids 1 1 2 # Bowel Movements 1 1 - Exam VITAL SIGNS: As above GENERAL: Sitting up in bed, no acute distress HEENT: Conjunctivae normal. eyes normal. Oral mucosa moist NECK: No JVD. Supple CARDIOVASCULAR: S1, S2 muffled. Systolic murmur RESPIRATION: bilateral bases diminished. ABDOMEN: Soft, nontender . No guarding. .Bowel sounds heard. LEGS: No edema. no swelling PSYCHIATRY: Alert and oriented 3, mood and affect normal. NERVOUS SYSTEM: Oriented 3 no focal neuro deficit noted - Labs CBC & Chem 7: 08/09/18 07:04 08/09/18 07:04 Labs: Abnormal Lab Results - Last 24 Hours (Table) 08/09/18 08/09/18 Range/Units 07:04 07:04 RBC 2.70 L (3.80-5.40) m/uL Hgb 9.0 L D (11.4-16.0) gm/dL Hct 28.7 L (34.0-46.0) % MCV 106.2 H (80.0-100.0) fL RDW 17.7 H (11.5-15.5) % Calcium 8.2 L (8.4-10.2) mg/dL Microbiology - Last 24 Hours (Table) 08/06/18 11:01 Blood Culture - Preliminary Blood No Growth after 72 hours 08/06/18 15:06 Urine Culture - Final Urine,Voided Escherichia coli Assessment and Plan Assessment: Possible community acquired pneumonia Acute urinary tract infection with E. coli, recent UTI As above metabolic encephalopathy Hypovolemic hyponatremia, improving Chronic systolic heart failure without exacerbation Chronic atrial fibrillation controlled ,on Eliquis Mitral regurgitation status post mitral valve annuloplasty GERD Rheumatoid arthritis Thyroid disorder Overactive bladder Memory impairment Anemia of chronic disease Plan: Continue current medication regime , Eliquis,, monitoring and symptomatic treatment. Maintain IV antibiotics. Aggressive pulmonary toileting, nebulized bronchodilators . Discharge planning in progress for subacute rehab, [facility]. pending. The impression and plan of care has been dictated as directed. : I performed a history and examination of this patient, discussed the same with the dictator. I agree with the dictator's note ,documented as a scribe. Any additional findings or plans will be noted.
--- NOTE | 2018-08-09 17:17 | PN ---
PROGRESS NOTE Patient is seen for followup for hyponatremia, which was hypovolemic. Currently resolved with serum sodium of to 137. The patient denies any significant complaints. She has been eating well. PHYSICAL EXAMINATION: Blood pressure was 123/65, heart rate 81 per minute. She is afebrile. Examination of the heart S1, S2. Examination of the lungs bilateral breath sounds are heard. Abdomen is soft, nontender. Examination of lower extremity shows no significant edema. [employer] exam is grossly intact. LAB: Show sodium 137, potassium 3.7, BUN 15, serum creatinine 0.64. ASSESSMENT: 1. Hyponatremia which was hypovolemic, currently improved with saline. I will discontinue the IV fluids and patient is encouraged to increase her oral intake. She has been eating well. 2. Urinary tract infection with urine culture growing E coli, currently symptomatically improved. 3. Weakness on initial admission, currently improved. 4. Hypothyroidism. 5. Pneumonia maintained on Zosyn. 6. Chronic atrial fibrillation, on anticoagulation. 7. Rheumatoid arthritis, on methotrexate. PLAN: We can discontinue the normal saline. Continue to encourage increased oral intake and consider decreasing methotrexate given the ongoing pneumonia and urinary tract infection. In fact, I feel we should hold it for about a week or so. MMODL / IJN: [id number] /
[2018-08-09] MEDS: SODIUM CHLORIDE 0.9% 1,000 ML IV SCH (17:44)
[2018-08-09] MEDS: DIPHENOX-ATROP 2.5-0.025 MG 1 EACH TAB PO PRN (17:46)
[2018-08-09] MEDS: MELATONIN 5 MG TABLET PO SCH (22:45)
[2018-08-09] MEDS: DONEPEZIL 5 MG TAB PO SCH (22:45)
[2018-08-09] MEDS: TEMAZEPAM 30 MG CAP PO SCH (22:48)
[2018-08-10] MEDS: LEVOTHYROXINE 137 MCG TAB PO SCH (05:36)
[2018-08-10] MEDS: PIPERACILLIN-TAZOBACTAM 3.375 GM in DEXTROSE/WATER 1 50ML.BAG IVPB SCH ×2 (08:18→15:52)
[2018-08-10] MEDS: predniSONE 10 MG TAB PO SCH (08:19)
[2018-08-10] MEDS: VANCOMYCIN 1,000 MG in SODIUM CHLORIDE 0.9% 250 ML IVPB SCH ×2 (08:19→21:12)
[2018-08-10] MEDS: APIXABAN 5 MG TAB PO SCH ×2 (08:20→21:30)
[2018-08-10] MEDS: PANTOPRAZOLE 40 MG TABLET PO SCH (08:20)
[2018-08-10] MEDS: cycloSPORINE 0.05% OPHTH 0.4 ML DROPERETTE BOTH EYES SCH ×2 (08:20→21:13)
[2018-08-10] MEDS: CALCIUM CARBONATE 500 MG CHEWABLE PO SCH (08:20)
[2018-08-10] MEDS: ALLOPURINOL 100 MG TAB PO SCH (08:20)
[2018-08-10] MEDS: VIT A,C & E-LUTEIN-MINERALS 1 EACH TAB PO SCH (08:21)
[2018-08-10] MEDS: METOPROLOL TARTRATE 50 MG TAB PO SCH ×2 (08:21→21:13)
[2018-08-10] MEDS ORDERED: VIT A,C & E-LUTEIN-MINERALS 1 EACH TAB ONE (08:21)
[2018-08-10] MEDS: IPRATROPIUM BROMIDE 0.06% NASAL SPRAY (15 ML) EA NOSTRIL SCH ×2 (08:21→21:30)
[2018-08-10] MEDS: FOLIC ACID 1 MG TAB PO SCH (08:21)
[2018-08-10] MEDS: TOFACITINIB CITRATE 11 MG PO SCH (08:22)
[2018-08-10] MEDS: VENLAFAXINE HCL ER 150 MG CAP PO SCH (08:22)
[2018-08-10] MEDS: ALPRAZolam 0.25 MG TAB PO SCH ×4 (08:24→21:13)
[2018-08-10 09:10] LABS: Anisocytosis Slight; Basophils % (A) 0 %; Eosinophils % (A) 1 %; HCT 32.9 % (34.0-46.0); HGB 10.2 gm/dL (11.4-16.0); Hypochromasia Slight; Lymphocytes # (A) 1.1 k/uL (1.0-4.8); Lymphocytes % (A) 15 %; MCH 34.1 pg (25.0-35.0); MCHC 31.1 g/dL (31.0-37.0); MCV 109.6 fL (80.0-100.0); Macrocytosis Marked; Mean Platelet Volume 7.3; Monocytes # (A) 0.5 k/uL (0-1.0); Monocytes % (A) 7 %; Neutrophils # (A) 5.2 k/uL (1.3-7.7); Neutrophils % (A) 74 %; Platelet Count 311 k/uL (150-450); RDW 17.8 % (11.5-15.5)
[2018-08-10 09:47] LABS: Calcium 9.1 mg/dL (8.4-10.2); Potassium 4.3 mmol/L (3.5-5.1)
[2018-08-10 10:23] LABS: Poikilocytosis (M) Present
[2018-08-10] MEDS: ACETAMINOPHEN TAB 325 MG TAB PO PRN ×2 (11:44→21:22)
[2018-08-10] MEDS: MULTIVITAMINS, THERA 1 EACH TAB PO SCH (11:44)
[2018-08-10] MEDS: THIAMINE 100 MG TAB PO SCH (11:44)
[2018-08-10] MEDS: DIPHENOX-ATROP 2.5-0.025 MG 1 EACH TAB PO PRN (17:44)
--- NOTE | 2018-08-10 17:46 | PN ---
PROGRESS NOTE DATE OF SERVICE: 08/10/2018 82-year-old woman who was admitted with possible community acquired pneumonia also had persistent UTI. The patient has recurrent UTI also. No chest pain. No palpitations. No fever. EXAM: GENERAL: Alert and oriented x3. VITAL SIGNS: Pulse is 85. Blood pressure 140/58, respirations 16, temperature 98 degrees, pulse ox 98% on room air. HEENT: Conjunctivae normal. Oral mucosa moist. NECK: Neck is no jugular venous distention. No carotid bruit. No lymph node enlargement. CARDIOVASCULAR: Cardiovascular systems S1, S2 muffled. RESPIRATION: Breath sounds diminished in the bases. A few scattered rhonchi. No crackles. ABDOMEN: Soft, nontender. LEGS: Are no edema. No swelling. NERVOUS SYSTEM: No focal deficits. LABS: At this time shows WBC 7, hemoglobin 10.2. The cultures are showing E coli, which is resistant. ASSESSMENT: 1. Possibly community-acquired pneumonia, present on admission. 2. Acute urinary tract infection with resistant E coli present on admission. 3. History recurrent urinary tract infections. 4. Metabolic encephalopathy, change in mental status. 5. Hypovolemic hyponatremia. 6. Chronic systolic congestive heart failure without acute exacerbation. 7. Chronic atrial ablation, controlled on Eliquis. 8. Mitral regurgitation status post mitral valve annuloplasty. 9. Gastroesophageal reflux disease. 10.Rheumatoid arthritis. 11.Hypothyroidism. 12.Overactive bladder. 13.History of memory impairment. 14.Anemia of chronic disease. RECOMMENDATIONS AND DISCUSSION: Recommend to continue current medications, management and symptomatic treatment. Otherwise, at this time, we will monitor the patient closely. Otherwise, infectious disease evaluation. Guarded prognosis. Further recommendations to follow. MMODL / IJN: [id number] /
[2018-08-10] MEDS: ESTRADIOL 0.1 MG/GM VAGINAL CREAM 42.5 GM TUBE VAGINAL SCH (21:12)
[2018-08-10] MEDS: MELATONIN 5 MG TABLET PO SCH (21:13)
[2018-08-10] MEDS: TEMAZEPAM 30 MG CAP PO SCH (21:23)
[2018-08-10] MEDS: DONEPEZIL 5 MG TAB PO SCH (21:30)
--- NOTE | 2018-08-10 22:04 | PN ---
PROGRESS NOTE Patient is seen for followup for hyponatremia. Her sodium has improved to 140 mEq/L. Patient is currently eating well. She has had good oral intake. She was maintained on normal saline, which is now discontinued. Patient also has a urinary tract infection and is maintained on antibiotics. On exacerbation this morning, blood pressure was 153/80, heart rate 85 per minute. She is afebrile. EXAMINATION OF THE HEART: S1, S2. EXAMINATION OF LUNGS: Bilateral breath sounds are heard. ABDOMEN: Soft, non-tender. Examination of lower extremities shows no significant edema. GLOBAL PRESIDENT exam is grossly intact. Labs show sodium 140, potassium 4.3. Hemoglobin was 10.2, serum creatinine 0.75 mg/dL. ASSESSMENT: 1. Hypovolemic hyponatremia, currently resolved. IV fluids have been discontinued. Patient is encouraged to continue to maintain good oral intake. 2. Hypothyroidism, maintained on supplementation. 3. Urinary tract infection with Escherichia coli, currently on Zosyn. 4. Hypertension, controlled. PLAN: Patient is stable for discharge from nephrology standpoint. Monitor electrolytes as outpatient. MMODL / IJN: [id number] /
[2018-08-11] MEDS: PIPERACILLIN-TAZOBACTAM 3.375 GM in DEXTROSE/WATER 1 50ML.BAG IVPB SCH ×2 (00:21→08:11)
--- NOTE | 2018-08-11 05:34 | CONS ---
CONSULTATION DATE OF SERVICE: 08/10/2018 REASON FOR CONSULTATION: Resistant urinary tract infection. HISTORY OF PRESENT ILLNESS: The patient is an 82-year-old female who does have history of recurrent UTI. She was recently admitted to this facility where the patient was treated for atrial fibrillation as well as the UTI. Urine shows an E coli. She was treated with IV antibiotic therapy and subsequently discharged home on a 4-day course of oral Bactrim DS, which the patient has completed. The patient now presented back to the [facility] ER on 08/05/2018 with the chief complaints of generalized weakness and no energy. The patient has been complaining of getting weak gradually, with no energy. The patient has some shortness of breath with minimal exertion, but no cough or any sputum production. She denies having abdominal pain. She did have urinary burning and frequency, but no significant suprapubic or flank pain. No high-grade fever. No nausea, vomiting, or any diarrhea. With these symptoms, the patient has been evaluated by the ER physician. On arrival to the ER, the patient has been afebrile. Her white count has been normal. She did have a positive UA both on 08/05 as well as 08/06. The urine culture now showing an E coli. Blood culture has been negative. This E coli is now resistant to Bactrim DS, though sensitive to ceftriaxone and Zosyn. Patient has been treated with Zosyn and vancomycin for the last 5 days. I was asked to see the patient today for further recommendation regarding antibiotic therapy. The patient did show overall improvement in her urinary symptoms though. REVIEW OF SYSTEMS: CONSTITUTIONAL: Positive for weakness, but no high-grade fever. EYES: No complaint. ENT: No complaint. RESPIRATORY: As per HPI. CARDIOVASCULAR: No complaint. GENITOURINARY: As per HPI. GASTROINTESTINAL: No complaint. MUSCULOSKELETAL: No complaint. INTEGUMENTARY: No complaint. PSYCHOLOGICAL: No complaint. ENDOCRINE: No complaint. NEUROLOGIC: No complaint. PAST MEDICAL HISTORY: Her past medical history is significant for recurrent urinary tract infection, atrial fibrillation, gastroesophageal reflux disease, rheumatoid arthritis, osteoarthritis, dementia, hypothyroidism, macular degeneration, myelodysplastic syndrome, pancreatitis. PAST SURGICAL HISTORY: Bariatric surgery, back surgery, valvular heart surgery, cholecystectomy, and intestinal bypass surgery for prolapsed rectum. SOCIAL HISTORY: The patient denies smoking, drinking, or any drug use. FAMILY HISTORY: No pertinent findings noticed. ALLERGIES: Allergies to KLONOPIN which causes hallucination. MEDICATION: Medications currently include the patient is on Zosyn 3.375 grams q.8. The patient is on vancomycin, Pharmacy to dose, Protonix, prednisone, Restoril, vitamin B1, Effexor, Mycostatin cream, Narcan, Ivite, Theragran, Lopressor, Reglan, methotrexate, melatonin, Synthroid, folic acid, Aricept, Lomotil, Restasis, Tums, and Eliquis. PHYSICAL EXAMINATION: On examination, her blood pressure is 153/80 with a pulse of 85, temperature 98. She is 99% on room air. General description is an elderly female up in the chair in no distress. No tachypnea or accessory muscle of respiration use. HEENT examination shows pallor, no scleral icterus. Oral mucous membrane is dry. No pharyngeal erythema or thrush. NECK: Trachea central. No thyromegaly. LUNGS: Unlabored breathing, clear to auscultation anteriorly. No wheeze or crackle. HEART: S1, S2. Regular rate and rhythm. ABDOMEN: Soft, no tenderness. No guarding or rigidity. EXTREMITIES: No edema of feet. SKIN EXAMINATION: No rash or mass palpable. NEUROLOGICAL: Patient is awake, alert, oriented x3. Mood and affect normal. LABS: Hemoglobin is 10.2, white count 7.0, BUN of 18, creatinine 0.75. Electrolytes haves been normal. Urine has been positive with large leukocyte esterase, more than 182 WBCs, many bacteria with urine showing an E coli that is a multidrug resistant pathogen, though sensitive to the ceftriaxone and Zosyn. DIAGNOSTIC IMPRESSION AND PLAN: Patient admitted to the hospital with generalized weakness in this patient who did have a history of recurrent urinary tract infection in the postmenopausal woman, more likely the risk factor for her recurrent urinary tract infections. I did not see there was any ultrasound of the kidneys done to rule out any structural abnormality. PLAN: 1. Discontinue the vancomycin as no gram-positive has been grown to decrease the risk of nephrotoxicity. 2. We will discontinue Zosyn and start the patient on Rocephin 2 grams daily. 3. Check an ultrasound of the kidneys and bladder area. 4. The patient to continue with to prevent recurrent urinary tract infections. 5. We will follow up on clinical condition and culture to further adjust medication if needed. Thank you for this consultation. Will follow this patient now with you. MMODL / IJN: [id number] /
[2018-08-11] MEDS: LEVOTHYROXINE 137 MCG TAB PO SCH (06:03)
[2018-08-11] MEDS: TOFACITINIB CITRATE 11 MG PO SCH (08:11)
[2018-08-11] MEDS: IPRATROPIUM BROMIDE 0.06% NASAL SPRAY (15 ML) EA NOSTRIL SCH ×2 (08:11→20:14)
[2018-08-11] MEDS: FOLIC ACID 1 MG TAB PO SCH (08:12)
[2018-08-11] MEDS: METOPROLOL TARTRATE 50 MG TAB PO SCH ×2 (08:12→20:14)
[2018-08-11] MEDS: CALCIUM CARBONATE 500 MG CHEWABLE PO SCH (08:12)
[2018-08-11] MEDS: APIXABAN 5 MG TAB PO SCH ×2 (08:12→20:13)
[2018-08-11] MEDS: VIT A,C & E-LUTEIN-MINERALS 1 EACH TAB PO SCH (08:12)
[2018-08-11] MEDS ORDERED: VIT A,C & E-LUTEIN-MINERALS 1 EACH TAB ONE (08:12)
[2018-08-11] MEDS: PANTOPRAZOLE 40 MG TABLET PO SCH (08:12)
[2018-08-11] MEDS: predniSONE 10 MG TAB PO SCH (08:13)
[2018-08-11] MEDS: cycloSPORINE 0.05% OPHTH 0.4 ML DROPERETTE BOTH EYES SCH ×2 (08:13→20:13)
[2018-08-11] MEDS: ALLOPURINOL 100 MG TAB PO SCH (08:13)
[2018-08-11] MEDS: VENLAFAXINE HCL ER 150 MG CAP PO SCH (08:13)
[2018-08-11] MEDS: ALPRAZolam 0.25 MG TAB PO SCH ×4 (08:22→22:21)
[2018-08-11] MEDS: ACETAMINOPHEN TAB 325 MG TAB PO PRN ×2 (08:22→20:14)
[2018-08-11 09:01] LABS: Anisocytosis Slight; Basophils % (A) 0 %; Eosinophils % (A) 1 %; HCT 28.7 % (34.0-46.0); HGB 9.2 gm/dL (11.4-16.0); Hypochromasia Slight; Lymphocytes # (A) 1.2 k/uL (1.0-4.8); Lymphocytes % (A) 15 %; MCHC 32.2 g/dL (31.0-37.0); MCV 105.8 fL (80.0-100.0); Macrocytosis Marked; Mean Platelet Volume 7.2; Monocytes # (A) 0.7 k/uL (0-1.0); Monocytes % (A) 9 %; Neutrophils # (A) 5.5 k/uL (1.3-7.7); Neutrophils % (A) 72 %; Platelet Count 276 k/uL (150-450); RBC 2.71 m/uL (3.80-5.40); RDW 17.8 % (11.5-15.5); WBC 7.7 k/uL (3.8-10.6)
[2018-08-11 09:04] LABS: Anion Gap 8 mmol/L; Blood Urea Nitrogen 17 mg/dL (7-17); Calcium 8.8 mg/dL (8.4-10.2); Carbon Dioxide 26 mmol/L (22-30); Chloride 103 mmol/L (98-107); Glucose 85 mg/dL (74-99); Sodium 137 mmol/L (137-145)
[2018-08-11 09:18] LABS: Potassium 4.4 mmol/L (3.5-5.1)
--- NOTE | 2018-08-11 10:28 | US ---
EXAMINATION TYPE: US kidneys/renal and bladder DATE OF EXAM: 08/11/2018 COMPARISON: CT, 04/05/2018, US 12/13/2017 CLINICAL HISTORY: recurrent UTI. EXAM MEASUREMENTS: Right Kidney: 8.1 x 4.1 x 4.4 cm Left Kidney: 7.7 x 4.6 x 3.4 cm Right Kidney: No hydronephrosis. Small in size with cortical renal atrophy. Left Kidney: No hydronephrosis. Small in size with cortical renal atrophy. Cystic area visualized liborio suring 1.4 x 1.6 x 1.4 cm . This previously measured 3.1 cm upper pole medial left renal lesion on th e exam of 12/13/2017 is not visualized and may have represented adjacent bowel on the prior ultrasound of 12/13/2017 or less likely now resolved cyst. Bladder: wnl as visualized, not fully distended. Bilateral Jets seen: right jet visualized IMPRESSION: 1. No hydronephrosis or nephrolithiasis. 2. Incomplete distention of the urinary bladder although no gross abnormality is seen. 3. Sonographic sequela of medical renal disease. 4. Simple appearing unchanged left renal cyst. The previously seen mildly complex renal lesion on the exam of 12/13/2017 is no longer visualized and when retrospectively evaluated likely represented v[address] cent bowel.
[2018-08-11 11:52] LABS: Polychromasia Present
[2018-08-11 11:53] LABS: Poikilocytosis (M) Present
[2018-08-11] MEDS: THIAMINE 100 MG TAB PO SCH (12:32)
[2018-08-11] MEDS: MULTIVITAMINS, THERA 1 EACH TAB PO SCH (12:32)
[2018-08-11 13:17] LABS: Appearance,Urine Cloudy (Clear); Bacteria,Urine Rare /hpf; Bilirubin,Urine Negative (Negative); Blood,Urine Trace (Negative); Color,Urine Light Yellow; Glucose,Urine (UA) Negative (Negative); Ketones,Urine Negative (Negative); Leukocyte Esterase,Urine Large (Negative); Mucus,Urine Rare /hpf; Nitrite,Urine Negative (Negative); PH, Urine 5.5 (5.0-8.0); Protein,Urine Trace (Negative); RBC,Urine 25 /hpf (0-5); Specific Gravity,Urine 1.011 (1.001-1.035); Squamous Epithelial Cell,Urine 1 /hpf (0-4); Urobilinogen,Urine <2.0 mg/dL (<2.0)
[2018-08-11] MEDS: cefTRIAXone 2,000 MG in SODIUM CHLORIDE 0.9% 100 ML IVPB SCH (13:37)
[2018-08-11] MEDS: DIPHENOX-ATROP 2.5-0.025 MG 1 EACH TAB PO PRN ×2 (16:55→20:14)
--- NOTE | 2018-08-11 18:05 | PN ---
PROGRESS NOTE DATE OF SERVICE: 08/11/2018 REASON FOR FOLLOWUP: Recurrent UTI infection and E coli. INTERVAL HISTORY: The patient is currently afebrile. She is breathing more comfortably. She denies significant chest pain. Occasional cough. No abdominal pain or any diarrhea. PHYSICAL EXAMINATION: Blood pressure is 152/79 with a pulse of 87, temperature 97.4. She is 96% on room air. General description is an elderly female up in the chair in no distress. RESPIRATORY SYSTEM: Unlabored breathing with decreased breath sounds in the bases. No wheeze. HEART: S1, S2. Regular rate and rhythm. ABDOMEN: Soft. No tenderness. LABS: Hemoglobin 9.2, white count 7.7 with a BUN of 17, creatinine 0.61. Ultrasound of the abdomen and bladder: no hydronephrosis; incomplete distention of the urinary bladder; left renal cyst. DIAGNOSTIC IMPRESSION AND PLAN: Patient with history of recurrent urinary tract infection. Urine culture has been positive for E coli with resistant pattern; however, sensitive to ceftriaxone, which the patient is on. Will continue. We will get a repeat UA and cultures to determine her discharge antibiotics. Continue with supportive care. MMODL / IJN: [id number] /
--- NOTE | 2018-08-11 19:56 | PN ---
PROGRESS NOTE DATE OF SERVICE: 08/11/2018 This 82-year-old woman who was admitted with community-acquired pneumonia also had UTI. Dr. Kendrick is is following the patient, recommending IV antibiotics as an outpatient. No chest pain. No palpitations. No fever. On exam, alert and oriented x3. Pulse is 87, blood pressure 152/79, respiration 18, temperature 97.4, pulse ox 96% on room air. HEENT: Conjunctivae normal. NECK: No jugular venous distention. CARDIOVASCULAR SYSTEM: S1, S2 muffled. RESPIRATORY SYSTEM: Breath sounds diminished at the bases. No rhonchi. No crackles. ABDOMEN: Soft, non-tender. LEGS: No edema. No swelling. NERVOUS SYSTEM: No focal deficit. LABS: WBC 7.7, hemoglobin is 9.2. UA has clumps present. ASSESSMENT: 1. Possibly community-acquired pneumonia, present on admission. 2. Acute urinary tract infection with resistant Escherichia coli, present on admission. 3. History of recurrent urinary tract infections. 4. Metabolic encephalopathy, change in mental status. 5. Hypovolemic hyponatremia. 6. Chronic systolic congestive heart failure without acute exacerbation. 7. Chronic atrial fibrillation, controlled on Eliquis. 8. Mitral regurgitation, status post mitral valve annuloplasty. 9. Gastroesophageal reflux disease. 10.Rheumatoid arthritis. 11.Hypothyroidism. 12.Overactive bladder history. 13.History of memory impairment. 14.Anemia of chronic disease. RECOMMENDATIONS AND DISCUSSION: I recommend to continue current medication, continue symptomatic treatment. Continue with IV fluids, IV antibiotics. Otherwise mid line. Continue to monitor. Further recommendations to follow. MMODL / IJN: [id number] /
[2018-08-11] MEDS: MELATONIN 5 MG TABLET PO SCH (20:13)
[2018-08-11] MEDS: DONEPEZIL 5 MG TAB PO SCH (20:13)
[2018-08-11] MEDS: TEMAZEPAM 30 MG CAP PO SCH (20:18)
--- NOTE | 2018-08-11 21:50 | PN ---
PROGRESS NOTE The patient is seen for followup for hyponatremia. Serum sodium level has improved and normalized. IV fluids were discontinued. The patient has been eating fairly well. PHYSICAL EXAMINATION: Blood pressure was 137/77, heart rate 85 per minute. Patient is afebrile. Examination of the heart: S1, S2. Examination of the lungs: Bilateral breath sounds are heard. Abdomen is soft, nontender. Examination lower extremities shows no evidence of edema. IMPORTER OR EXPORTER exam is grossly intact. LABS: Show sodium 137, potassium 4.4, BUN 17, serum creatinine 0.61, hemoglobin 9.2 g/dL. ASSESSMENT: 1. Hypovolemic hyponatremia, improved with normal saline. The saline was discontinued yesterday. Her sodium is at 137 today. We will continue to monitor for now. 2. Urinary tract infection with E coli, maintained on antibiotics in the form of Rocephin. 3. Atrial fibrillation, on Eliquis. PLAN: The patient is stable for discharge. We will need to follow up as outpatient on her electrolytes. She is advised to maintain good oral protein intake. MMODL / IJN: [id number] /
[2018-08-12 04:34] VITALS: PULSE 89
[2018-08-12] MEDS: LEVOTHYROXINE 137 MCG TAB PO SCH (05:51)
[2018-08-12] MEDS: TOFACITINIB CITRATE 11 MG PO SCH (08:42)
[2018-08-12] MEDS: VENLAFAXINE HCL ER 150 MG CAP PO SCH (08:42)
[2018-08-12] MEDS: METOPROLOL TARTRATE 50 MG TAB PO SCH (08:43)
[2018-08-12] MEDS: predniSONE 10 MG TAB PO SCH (08:43)
[2018-08-12] MEDS: cefTRIAXone 2,000 MG in SODIUM CHLORIDE 0.9% 100 ML IVPB SCH (08:44)
[2018-08-12] MEDS: cycloSPORINE 0.05% OPHTH 0.4 ML DROPERETTE BOTH EYES SCH (08:44)
[2018-08-12] MEDS: IPRATROPIUM BROMIDE 0.06% NASAL SPRAY (15 ML) EA NOSTRIL SCH (08:44)
[2018-08-12] MEDS: FOLIC ACID 1 MG TAB PO SCH (08:44)
[2018-08-12] MEDS: CALCIUM CARBONATE 500 MG CHEWABLE PO SCH (08:45)
[2018-08-12] MEDS: ALLOPURINOL 100 MG TAB PO SCH (08:45)
[2018-08-12] MEDS: ALPRAZolam 0.25 MG TAB PO SCH (08:45)
[2018-08-12] MEDS: APIXABAN 5 MG TAB PO SCH (08:45)
[2018-08-12] MEDS: PANTOPRAZOLE 40 MG TABLET PO SCH (08:45)
[2018-08-12] MEDS: ACETAMINOPHEN TAB 325 MG TAB PO PRN (08:47)
[2018-08-12 09:44] LABS: Anisocytosis Slight; Basophils % (A) 0 %; Eosinophils % (A) 1 %; HCT 27.3 % (34.0-46.0); HGB 8.9 gm/dL (11.4-16.0); Hypochromasia Slight; Lymphocytes # (A) 1.1 k/uL (1.0-4.8); Lymphocytes % (A) 13 %; MCH 34.4 pg (25.0-35.0); MCHC 32.5 g/dL (31.0-37.0); MCV 106.1 fL (80.0-100.0); Macrocytosis Marked; Mean Platelet Volume 7.3; Monocytes # (A) 0.8 k/uL (0-1.0); Monocytes % (A) 9 %; Neutrophils # (A) 6.3 k/uL (1.3-7.7); Neutrophils % (A) 74 %; Platelet Count 249 k/uL (150-450); RBC 2.57 m/uL (3.80-5.40); WBC 8.5 k/uL (3.8-10.6)
[2018-08-12 09:50] LABS: Anion Gap 10 mmol/L; Blood Urea Nitrogen 18 mg/dL (7-17); Calcium 8.9 mg/dL (8.4-10.2); Carbon Dioxide 27 mmol/L (22-30); Chloride 100 mmol/L (98-107); Glucose 96 mg/dL (74-99); Potassium 3.9 mmol/L (3.5-5.1); Sodium 137 mmol/L (137-145)
--- NOTE | 2018-08-12 10:45 | DS ---
DISCHARGE SUMMARY FINAL DIAGNOSES: 1. Possibly community-acquired pneumonia, present on admission. 2. Acute urinary tract infection with resistant Escherichia coli, present on admission. 3. History of recurrent urinary tract infection in the past. 4. Metabolic encephalopathy with change in mental status secondary to urinary tract infection. 5. Hypovolemic hyponatremia. 6. Chronic systolic congestive heart failure without any acute exacerbation. 7. Chronic atrial fibrillation, controlled with Eliquis. 8. Mitral regurgitation, status post mitral valve annuloplasty. 9. Gastroesophageal reflux disease. 10.Rheumatoid arthritis. 11.Hypothyroidism. 12.Overactive bladder. 13.History of memory impairment. 14.Anemia of chronic disease. DISCHARGE DISPOSITION: The patient will be discharged in stable condition with guarded prognosis. HISTORY OF PRESENT ILLNESS: This 82-year-old woman with a past medical history of multiple medical problems who was admitted with features of pneumonia. Patient also had UTI also E coli was resistant to antibiotic. Dr. Kendrick recommended Rocephin. Patient improved significantly. On exam, vital signs are stable. CARDIOVASCULAR: S1, S2 muffled. ABDOMEN: Soft. NERVOUS SYSTEM: No focal deficits. DISCHARGE ADVICE: 1. Diet is cardiac. 2. Activity limited until followup. 3. Follow up with Dr. Ariadne Henderson in 2 to 3 days. 4. Home care is being arranged. Medications are: 1. Zyloprim 100 mg p.o. daily. 2. Xanax 0.25 q.i.d. p.r.n. 3. Eliquis 5 mg p.o. b.i.d. 4. Calcium carbonate 600 mg p.o. daily. 5. Cyclosporine b.i.d. 6. Prolia 60 mg . 7. Lomotil 1 p.o. daily p.r.n. 8. Aricept 5 mg q.h.s. 9. Vitamin D2, 50,000 p.o. Wednesday. 10.Estradiol 1 application p.r.n. 11.Folic acid 0.4 daily. 12.Atrovent 1 spray p.r.n. 13.Levothyroxine 137 mcg p.o. daily. 14.Melatonin 10 mg p.o. q.h.s. 15.Methotrexate 10 mg p.o. Wednesday. 16.Reglan 10 mg b.i.d. p.r.n. 17.Nystatin. 18.Protonix 40 mg p.o. daily. 19.Prednisone taper. 20.Restoril 30 mg q.h.s. 21.Tofacitinib 5 mg p.o. b.i.d. 22.Effexor XR 150 mg p.o. daily. 23.Vitamin A and C one p.o. daily. 24.Lopressor 50 mg p.o. b.i.d. 25.Multivitamins 1 p.o. daily. 26.Thiamine 100 mg p.o. daily. Once again, the patient will be discharged in a stable and guarded prognosis. The creatinine improved significantly. Follow up with Dr. Kendrick as advised. MMODL / IJN: [id number] /
[2018-08-12] MEDS ORDERED: METHOTREXATE SODIUM 2.5 MG TAB PO SCH (12:00)
[2018-08-12] MEDS ORDERED: ERGOCALCIFEROL 50,000 UNIT CAP PO SCH (12:00)
[2018-08-12 12:25] VITALS: BP 154/84; RESP 17; TEMP 97.1
[2018-08-12] MEDS: DIPHENOX-ATROP 2.5-0.025 MG 1 EACH TAB PO PRN (13:35)
--- NOTE | 2018-08-12 17:21 | PN ---
PROGRESS NOTE DATE OF SERVICE: 08/12/2018 REASON FOR FOLLOWUP: Recurrent E coli urinary tract infection. INTERVAL HISTORY: The patient is currently afebrile. She was seen on rounds early this afternoon. The patient did get her mid line for outpatient IV antibiotic therapy. Denies having any chest pain, shortness of breath or cough. No abdominal pain. Her urinary symptoms have improved. PHYSICAL EXAMINATION: Blood pressure 154/84 with a pulse of 89, temperature 97.1. She is 94% on room air. General description is an elderly female up in the chair in no distress. RESPIRATORY SYSTEM: Unlabored breathing. Clear to auscultation anteriorly. HEART: S1, S2. Regular rate and rhythm. ABDOMEN: Soft. No tenderness. LABS: Hemoglobin 8.9, white count of 8.5. BUN of 18, creatinine 0.63. DIAGNOSTIC IMPRESSION AND PLAN: Patient with Escherichia coli urinary tract infection, recurrent, in this postmenopausal woman with multi-drug resistant pathogen sensitive to ceftriaxone; low resistance to cefuroxime. She did get a mid line for continuation of IV Rocephin 1 gram daily for 10 more days with close outpatient followup. Further measures to prevent recurrent UTI, including cream, cranberry juice and fluids, were discussed with the patient. She did mention that she is supposed to follow up with the urologist at [facility] for further urological workup. All their questions and concerns were answered. MMODL / IJN: [id number] /
--- NOTE | 2018-08-12 19:33 | PN ---
PROGRESS NOTE Patient is seen for followup for hyponatremia. She is lying in bed comfortably. The patient is having her labs drawn. She denies any significant complaints. She will be discharged today. On examination, blood pressure was 150/80, heart rate of 89 per minute. Patient is afebrile. EXAMINATION OF THE HEART: S1, S2. EXAMINATION OF LUNGS: Bilateral breath sounds are heard. ABDOMEN: Soft, non-tender. Examination of lower extremities shows trace edema bilaterally. Lab show sodium 137, potassium 3.9, serum creatinine 0.63, hemoglobin 8.9 g/dL. ASSESSMENT: 1. Hypovolemic hyponatremia, currently improved. Serum sodium staying at about 137 to 140 mEq/L. Patient is advised to maintain good oral intake, particularly protein, and try to limit excessive amounts of free water. 2. Urinary tract infection. Urine culture grew E coli. Patient is maintained on Rocephin. 3. History of atrial fibrillation, maintained on Eliquis. 4. Hypothyroidism, currently on Synthroid. 5. Generalized debility. PLAN: Patient is stable for discharge. Maintain good oral intake and monitor electrolytes as outpatient. MMODL / IJN: [id number] /
== END 2018-08-12 14:36 | disposition home health service (06) | DRG 689 ==
LOC: EC 19:17 → 6SEL 22:37 → 5MS5E 08-08 14:17
PROVIDERS: ADMIT Internal Medicine; ATTEND Internal Medicine
PROC: 05HY33Z Insertion of Infusion Device into Upper Vein, Percutaneous Approach (ICD-10-PCS; principal; 2018-08-12 08:00)
DX: N39.0 Urinary tract infection, site not specified (principal); G93.41 Metabolic encephalopathy; J18.9 Pneumonia, unspecified organism; E87.1 Hypo-osmolality and hyponatremia; I50.22 Chronic systolic (congestive) heart failure; J98.11 Atelectasis; B96.20 Unspecified Escherichia coli [E. coli] as the cause of diseases classified elsewhere; D46.9 Myelodysplastic syndrome, unspecified; D63.8 Anemia in other chronic diseases classified elsewhere; E03.9 Hypothyroidism, unspecified; E86.0 Dehydration; E86.1 Hypovolemia; F03.90 Unspecified dementia, unspecified severity, without behavioral disturbance, psychotic disturbance, mood disturbance, and anxiety; H35.30 Unspecified macular degeneration; H91.90 Unspecified hearing loss, unspecified ear; I11.0 Hypertensive heart disease with heart failure; I48.2 Chronic atrial fibrillation; K21.9 Gastro-esophageal reflux disease without esophagitis; K44.9 Diaphragmatic hernia without obstruction or gangrene; M06.9 Rheumatoid arthritis, unspecified; M19.90 Unspecified osteoarthritis, unspecified site; N32.81 Overactive bladder; F32.9 Major depressive disorder, single episode, unspecified; F41.9 Anxiety disorder, unspecified; Z16.24 Resistance to multiple antibiotics; Z79.01 Long term (current) use of anticoagulants; Z79.899 Other long term (current) drug therapy; Z79.890 Hormone replacement therapy; Z79.52 Long term (current) use of systemic steroids; Z88.8 Allergy status to other drugs, medicaments and biological substances; Z98.84 Bariatric surgery status; Z95.2 Presence of prosthetic heart valve; Z87.440 Personal history of urinary (tract) infections; Z87.01 Personal history of pneumonia (recurrent); Z90.49 Acquired absence of other specified parts of digestive tract; Z82.49 Family history of ischemic heart disease and other diseases of the circulatory system
CPT/HCPCS: 36415; 36569; 70450; 71045; 71046; 76770; 76937; 80048; 80053; 80202; 81001; 82533; 82570; 83735; 83880; 83935; 84133; 84295; 84300; 84443; 84484; 85025; 87040; 87077; 87086; 87186; 93005; 96361; 96374; 99285

== ENCOUNTER → 2018-09-26 | Outpatient (CLI) | payer MEDICARE, OTHER ==
--- NOTE | 2018-09-26 16:17 | US ---
EXAMINATION TYPE: US venous doppler duplex LE LT DATE OF EXAM: 09/26/2018 4:06 PM COMPARISON: NONE CLINICAL HISTORY: 82-year-old female left lower ext, Swelling R22.42. Left leg swelling, no h/o DVT SIDE PERFORMED: Left TECHNIQUE: The lower extremity deep venous system is examined utilizing real time linear array sonog radha with graded compression, doppler sonography and color-flow sonography. FINDINGS: VESSELS IMAGED: External Iliac Vein (EIV) Common Femoral Vein Deep Femoral Vein Greater Saphenous Vein * Femoral Vein Popliteal Vein Small Saphenous Vein * Proximal Calf Veins (* superficial vessels) Left Leg: Appears negative for DVT *tech impression to [place] at office @4:10 IMPRESSION: No evidence for DVT within the left lower extremity imaged down into the calf.
== END | disposition home or self-care (01) ==
LOC: RADUSWWP 15:41
PROVIDERS: ATTEND Registered Nurse Oncology
DX: R22.42 Localized swelling, mass and lump, left lower limb (principal)

== ENCOUNTER 2018-09-28 12:56 | Inpatient (IN) | payer MEDICARE, OTHER ==
[2018-09-28] MEDS ORDERED: SODIUM CHLORIDE 0.9% 500 ML IV STA (13:54)
[2018-09-28] MEDS ORDERED: TOPICAL SKIN ADHESIVE 1 EACH AMP TOPICAL ONE (13:57)
--- NOTE | 2018-09-28 13:57 | ED ---
General Adult HPI - General Chief complaint: Fall Stated complaint: Fell/head injury Source: patient, family Mode of arrival: wheelchair Limitations: physical limitation - History of Present Illness Initial comments: Dictation was produced using [employer] dictation software. please excuse any grammatical, word or spelling errors. Chief Complaint: 82-year-old female past medical history of valve procedure on Ellquis presents after fall. History of Present Illness: Patient is an 82-year-old female presents after fall. She is on anticoagulation medications. Patient was bending down to reach over to pick 7 off the floor when she suddenly lost her balance. She states she fell backwards causing her to strike her head. Fall was witnessed by her family members. She did not lose consciousness. Patient is only complaint is some tenderness to the posterior part of her head. She did note some blood in the back of her head. Patient denies any other symptoms. No neurologic toxic deficits. Prior to the fall patient was feeling at baseline. At baseline has problems with balance. The ROS documented in this emergency department record has been reviewed and confirmed by me. Those systems with pertinent positive or negative responses have been documented in the HPI. All other systems are other negative and/or noncontributory. - Related Data Home Medications Medication Instructions Recorded Confirmed Allopurinol [Zyloprim] 100 mg PO DAILY 03/21/14 09/28/18 Apixaban [Eliquis] 5 mg PO BID 11/02/14 09/28/18 Ergocalciferol [Vitamin D2 50,000 unit PO FR 09/05/17 09/28/18 (DRISDOL)] Estradiol [Estrace Cream 0.01%] 1 applic VAGINAL MOWEFR 12/07/17 09/28/18 Temazepam [Restoril] 30 mg PO HS 12/07/17 09/28/18 Vit A/Vit C/Vit E/Zinc/Copper 1 cap PO DAILY 12/07/17 09/28/18 [ICAPS SOFTGEL] Calcium Carbonate [Calcium] 600 mg PO DAILY 07/22/18 09/28/18 Donepezil [Aricept] 5 mg PO HS 07/22/18 09/28/18 Venlafaxine HCl [Effexor XR] 150 mg PO DAILY 07/22/18 09/28/18 ALPRAZolam [Xanax] 0.25 mg PO TID 09/28/18 09/28/18 Abatacept [Orencia] 125 mg SQ Q14D 09/28/18 09/28/18 Amiodarone [Cordarone] 200 mg PO BID 09/28/18 09/28/18 Cetirizine HCl [Zyrtec] 10 mg PO DAILY 09/28/18 09/28/18 Diphenox-Atrop 2.5-0.025 mg 1 tab PO BID 09/28/18 09/28/18 [Lomotil] Epoetin [place] [Procrit] 40,000 unit SQ Q180D 09/28/18 09/28/18 Esomeprazole Magnesium [NexIUM] 40 mg PO DAILY 09/28/18 09/28/18 Folic Acid 1 mg PO DAILY 09/28/18 09/28/18 Ipratropium Veneta [Ipratropium 1 spray EA NOSTRIL DAILY 09/28/18 09/28/18 Veneta 0.03%] Iron Polysaccharide Complex 150 mg PO DAILY 09/28/18 09/28/18 [Ferrex 150] Levothyroxine Sodium [Synthroid] 100 mcg PO DAILY 09/28/18 09/28/18 Lidocaine HCl [Aspercreme] 1 applic TOPICAL BID PRN 09/28/18 09/28/18 Loperamide HCl [Imodium A-D] 4 mg PO TID 09/28/18 09/28/18 Losartan Potassium [Cozaar] 25 mg PO DAILY 09/28/18 09/28/18 Melatonin 5 mg PO HS 09/28/18 09/28/18 Metoprolol Tartrate [Lopressor] 50 mg PO DAILY 09/28/18 09/28/18 Niacin [Niaspan] 500 mg PO DAILY 09/28/18 09/28/18 Solifenacin Succinate [Vesicare] 5 mg PO DAILY 09/28/18 09/28/18 Allergies Allergy/AdvReac Type Severity Reaction Status Date / Time clonazepam [From Klonopin] AdvReac Severe Hallucinati Verified 09/28/18 14:05 ons Review of Systems ROS Statement: Those systems with pertinent positive or pertinent negative responses have been documented in the HPI. ROS Other: All systems not noted in ROS Statement are negative. Past Medical History Past Medical History: Atrial Fibrillation, Heart Failure, Eye Disorder, GERD/ Reflux, Hearing Disorder / Deafness, Memory Impairment, Osteoarthritis (OA), Rheumatoid Arthritis (RA), Thyroid Disorder Additional Past Medical History / Comment(s): HX of MACULAR DEGENERATION, PANCREATITIS, HARD OF HEARING. MYELODYSPLASTIC SYNDROME, BONE MARROW DISEASE, overactive bladder History of Any Multi-Drug Resistant Organisms: None Reported Past Surgical History: Back Surgery, Bariatric Surgery, Cardiac Valve Replacement, Cholecystectomy Additional Past Surgical History / Comment(s): INTESTINAL BYPASS/PROLAPSED RECTUM, TUMMY TUCK, CARDIAC VALVE REPAIR. Past Anesthesia/Blood Transfusion Reactions: No Reported Reaction Additional Past Anesthesia/Blood Transfusion Reaction / Comment(s): PAST BLOOD TRANSFUSION, no problems. Past Psychological History: Anxiety, Depression Smoking Status: Never smoker Past Alcohol Use History: None Reported Past Drug Use History: None Reported - Past Family History Mother Family Medical History: Myocardial Infarction ([place]) Father Family Medical History: Myocardial Infarction ([place]) General Exam - General Exam Comments Initial Comments: PHYSICAL EXAM: General Impression: Alert and oriented x3, not in acute distress HEENT: 170 laceration to the left occiput, extra-ocular movements intact, pupils equal and reactive to light bilaterally, mucous membranes moist. Cardiovascular: Heart regular rate and rhythm, S1&S2 audible, no murmurs, rubs or gallops Chest: Lungs clear to auscultation bilaterally, no rhonchi, no wheeze, no rales Abdomen: Bowel sounds present, abdomen soft, non-tender, non-distended, no organomegaly Musculoskeletal: Pulses present and equal in all extremities, no peripheral edema Motor: Moves all extremities grossly Neurological: CN II-XII grossly intact, no focal motor or sensory deficits noted Skin: Intact with no visualized rashes Psych: Normal affect and mood Limitations: physical limitation Course Vital Signs 09/28/18 13:01 Temperature 97.7 F Pulse Rate 88 Respiratory 18 Rate Blood Pressure 127/77 O2 Sat by Pulse 95 Oximetry Medical Decision Making - Medical Decision Making ED course: 82-year-old female on [employer] medication presents after fall. Vital signs on arrival are within normal limits. Physical examination is benign. There is small laceration to the left occiput.Lab data evaluation obtained. Hemoglobin stable at 9.8. Espresso be at or around her baseline. Coag panel is unremarkable. Metabolic panel shows she given IV magnesium for critical hypomagnesemia. EKG did not show prolonged QT or any arrhythmias. Patient given intravenous fluids. Given degree of hypomagnesemia class have patient admitted to the hospital for electrolyte replacement. Computed tomography scan of the head C-spine, chest x-ray of the chest and pelvis x-ray did not show any findings of her medical injuries. Overall, this EKG is unremarkable - Lab Data Result diagrams: 09/28/18 13:17 09/28/18 13:17 Lab Results 09/28/18 09/28/18 09/28/18 Range/Units 13:17 13:17 13:17 WBC 6.2 (3.8-10.6) k/uL RBC 2.83 L (3.80-5.40) m/uL Hgb 9.8 L (11.4-16.0) gm/dL Hct 30.5 L (34.0-46.0) % MCV 108.0 H (80.0-100.0) fL MCH 34.8 (25.0-35.0) pg MCHC 32.2 (31.0-37.0) g/dL RDW 19.1 H (11.5-15.5) % Plt Count 250 (150-450) k/uL Neutrophils % (Manual) 55 % Lymphocytes % (Manual) 27 % Monocytes % (Manual) 17 % Eosinophils % (Manual) 2 % Metamyelocytes % 1 % Myelocytes % 1 % Neutrophils # (Manual) 3.41 (1.3-7.7) k/uL Lymphocytes # (Manual) 1.67 (1.0-4.8) k/uL Monocytes # (Manual) 1.05 H (0-1.0) k/uL Eosinophils # (Manual) 0.12 (0-0.7) k/uL Metamyelocytes # (Man) 0.06 H (0) k/uL Myelocytes # (Manual) 0.06 H (0) k/uL Nucleated RBCs 0 (0-0) /100 WBC Manual Slide Review Performed Hypochromasia Moderate Poikilocytosis (manual Present Anisocytosis Slight Macrocytosis Marked Crenated Cell Present Fragmented RBCs Present PT 16.8 H (9.0-12.0) sec INR 1.8 H (<1.2) Sodium 144 (137-145) mmol/L Potassium 4.4 (3.5-5.1) mmol/L Chloride 116 H (98-107) mmol/L Carbon Dioxide 19 L (22-30) mmol/L Anion Gap 9 mmol/L BUN 17 (7-17) mg/dL Creatinine 0.90 (0.52-1.04) mg/dL Est GFR (CKD-EPI)AfAm 70 (>60 ml/min/1.73 sqM) Est GFR (CKD-EPI)NonAf 61 (>60 ml/min/1.73 sqM) Glucose 100 H (74-99) mg/dL Calcium 8.0 L (8.4-10.2) mg/dL Magnesium 0.6 L* (1.6-2.3) mg/dL Disposition Clinical Impression: Accident due to mechanical fall without injury, Hypomagnesemia Disposition: ADMITTED IP TO THIS HOSP Condition: Fair Referrals: Ariadne Henderson MD [Primary Care Provider] - 1-2 days Decision Time: 15:19
--- NOTE | 2018-09-28 13:58 | CT ---
EXAMINATION TYPE: CT brain cheri lozada DATE OF EXAM: 09/28/2018 COMPARISON: 08/05/2018 HISTORY: Fall, head injury CT DLP: 1197.[address] of the brain was performed. The ventricles, basal cisterns and sulci overlying the cerebral convexities demonstrate mild enlargem ent. There is no evidence for intracranial hemorrhage or sulcal effacement. There is decreased attenuatio n about the periventricular white matter and deep white matter of both cerebral hemispheres, compatib le with chronic small vessel ischemia. No mass effects are seen. If symptoms persist consider MRI. Osseous calvarium is intact. Small left occipital scalp hematoma. IMPRESSION: 1. Age related atrophic and chronic small vessel ischemic change without acute intracranial process seen at this time. CT Cervical Spine: COMPARISON: 04/01/[address] of the cervical spine was performed with bone and soft tissue window settings submitted . Coronal and sagittal reconstruction is obtained. Stable anterior subluxation of C6 on C7 measuring 2.5 mm. Degenerative disc space narrowing and spond ylosis unchanged. No evidence for acute cervical fracture . Biapical scarring. IMPRESSION: 1. No evidence for acute fracture or subluxation of the cervical spine.
[2018-09-28 14:22] LABS: Anisocytosis Slight; HCT 30.5 % (34.0-46.0); HGB 9.8 gm/dL (11.4-16.0); Hypochromasia Moderate; MCH 34.8 pg (25.0-35.0); MCHC 32.2 g/dL (31.0-37.0); Macrocytosis Marked; Mean Platelet Volume 8.4; Platelet Count 250 k/uL (150-450); RBC 2.83 m/uL (3.80-5.40); RDW 19.1 % (11.5-15.5); WBC 6.2 k/uL (3.8-10.6)
[2018-09-28 14:26] LABS: INR 1.8 (<1.2); Prothrombin Time 16.8 sec (9.0-12.0)
[2018-09-28 14:34] LABS: Eosinophils # (M) 0.12 k/uL (0-0.7); Lymphocytes # (M) 1.67 k/uL (1.0-4.8); Metamyelocytes # (M) 0.06 k/uL (0); Metamyelocytes % 1 %; Monocytes # (M) 1.05 k/uL (0-1.0); Myelocytes # (M) 0.06 k/uL (0); Myelocytes % 1 %; Neutrophils # (M) 3.41 k/uL (1.3-7.7); Neutrophils % (M) 55 %; Nucleated Red Blood Cells 0 /100 WBC (0-0); Total Cells Counted 200
[2018-09-28 14:35] LABS: Crenated RBC Present; Poikilocytosis (M) Present; Potassium 4.4 mmol/L (3.5-5.1); RBC Fragments Present
[2018-09-28 14:38] LABS: Magnesium 0.6 mg/dL (1.6-2.3)
--- NOTE | 2018-09-28 14:40 | XR ---
EXAMINATION TYPE: XR chest 2V DATE OF EXAM: 09/28/2018 COMPARISON: 08/06/2018 HISTORY: Shortness of breath TECHNIQUE: Frontal and lateral views of the chest are obtained. FINDINGS: Scattered senescent parenchymal changes noted. Hyperinflation compatible with COPD. Patchy density right medial lung base. Small right-sided pleural effusion. Correlate for pneumonia. Heart size is stable. Mediastinal structures are stable and grossly unremarkable. No evidence for hilar prominence. Degenerative changes dorsal spine. IMPRESSION: 1. Patchy density right medial lung base. Small right-sided pleural effusion. Correlate for pneumonia .
--- NOTE | 2018-09-28 14:41 | XR ---
EXAMINATION TYPE: XR pelvis AP view DATE OF EXAM: 09/28/2018 CLINICAL HISTORY: Pain TECHNIQUE: A single AP view of the pelvis is obtained. COMPARISON: None. FINDINGS: There is no acute fracture/dislocation evident in the pelvis. The hip and sacroiliac join ts appear symmetric and unremarkable. The overlying soft tissue appears unremarkable. IMPRESSION: There is no acute fracture or dislocation in the pelvis.
[2018-09-28] MEDS: MAGNESIUM SULFATE-D5W PMX 1 GM in DEXTROSE/WATER 1 100ML.BAG IVPB SCH ×2 (15:13→16:26)
[2018-09-28 16:17] LABS: Amorphous Sediment,Urine Rare /hpf; Appearance,Urine Turbid (Clear); Bacteria,Urine Many /hpf; Bilirubin,Urine Negative (Negative); Blood,Urine Small (Negative); Color,Urine Dark Brown; Glucose,Urine (UA) 1+ (Negative); Ketones,Urine Negative (Negative); Leukocyte Esterase,Urine Large (Negative); Nitrite,Urine Negative (Negative); PH, Urine 5.5 (5.0-8.0); Protein,Urine 1+ (Negative); RBC,Urine 19 /hpf (0-5); Squamous Epithelial Cell,Urine 10 /hpf (0-4); Urobilinogen,Urine <2.0 mg/dL (<2.0)
[2018-09-28] MEDS ORDERED: NALOXONE 0.4 MG/ML 1 ML VIAL IV PRN (16:29)
[2018-09-28 16:32] LABS: Specific Gravity,Urine >1.050 (1.001-1.035)
[2018-09-28] MEDS ORDERED: LIDOCAINE 4% CREAM 5 GM TUBE TOPICAL PRN (19:47)
[2018-09-28] MEDS ORDERED: IOPAMIDOL-300 CONTRAST 30 ML VIAL (ORAL USE) PO PRN (19:49)
[2018-09-28] MEDS ORDERED: ABATACEPT 125 MG SQ SCH (20:00)
[2018-09-28 20:32] LABS: ALT 23 U/L (9-52); AST 54 U/L (14-36); Alkaline Phosphatase 66 U/L (38-126); Anion Gap 9 mmol/L; Blood Urea Nitrogen 13 mg/dL (7-17); Calcium 7.2 mg/dL (8.4-10.2); Carbon Dioxide 18 mmol/L (22-30); Chloride 114 mmol/L (98-107); Glucose 112 mg/dL (74-99); Sodium 141 mmol/L (137-145); Total Bilirubin 0.4 mg/dL (0.2-1.3); Total Protein 5.7 g/dL (6.3-8.2)
[2018-09-28] MEDS ORDERED: TEMAZEPAM 30 MG CAP PO SCH (21:00)
--- NOTE | 2018-09-28 21:09 | HP ---
HISTORY AND PHYSICAL DATE OF SERVICE: 09/28/2018 CHIEF COMPLAINTS: Fall and weakness. HISTORY OF PRESENT ILLNESS: This 82-year-old woman with a past medical history of atrial fibrillation, CHF, history of hearing defect, history of memory impairment, DJD, history of pneumonia, rheumatoid arthritis, history of back surgery, bariatric surgery, cardiac valve replacement, anxiety, depression, being followed by Dr. Ariadne Henderson in the outpatient setting, apparently had a fall today. 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 The patient came to [facility] and was admitted for further evaluation and treatment. Magnesium was found to be extremely low at 0.6. Right lobe infiltrate was also suspected. There is no history of any fever, rigor or chills. No history of headache, loss of consciousness, seizures. PAST MEDICAL HISTORY: 1. Atrial ablation. 2. CHF. 3. GERD. 4. Hearing defect. 5. DJD. 6. History of pneumonia. 7. History of rheumatoid arthritis. HOME MEDICATIONS: 1. Vitamin A, zinc, copper 1 p.o. daily. 2. Effexor XR 150 mg daily. 3. Restoril 30 mg at bedtime. 4. Vesicare 5 mg p.o. daily. 5. Niaspan 500 mg p.o. daily. 6. Lopressor 50 mg p.o. daily. 7. Melatonin 5 mg at bedtime. 8. Cozaar 25 mg p.o. daily. 9. Imodium A-D 4 mg p.o. t.i.d. 10.Aspercreme 1 application topically b.i.d. p.r.n. 11.Synthroid 100 mcg p.o. daily. 12.Ferrex 150 mg p.o. daily. 13.Atrovent each nostril daily. 14.Folic acid 1 mg daily. 15.Estrace 1 application vaginally Wednesday, Wednesday, Wednesday. 16.Nexium 40 mg p.o. daily. 17.Drisdol 50,000 p.o. Wednesday. 18.Procrit 40,000 subcutaneously q.180 days. 19.Aricept 5 mg at bedtime. 20.Lomotil 1 tablet p.o. b.i.d. 21.Zyrtec 10 mg p.o. daily. 22.Calcium 600 mg p.o. daily. 23.Eliquis 5 mg p.o. b.i.d. 24.Cordarone 200 mg p.o. b.i.d. 25.Zyloprim 100 mg p.o. daily. 26.Orencia 125 mg subcutaneously q.14 days. 27.Xanax 0.25 p.o. t.i.d. ALLERGIES: KLONOPIN. FAMILY HISTORY: History of myocardial infarction in the family. SOCIAL HISTORY: No history of smoking. No history of alcohol intake. REVIEW OF SYSTEMS: ENT: No diminished hearing. No diminished vision. CARDIOVASCULAR SYSTEM: No angina, palpitations. RESPIRATORY SYSTEM: As mentioned earlier. GI: No nausea, vomiting. : No dysuria or retention. NERVOUS SYSTEM: No numbness, weakness. ALLERGY/IMMUNOLOGY: No asthma, hayfever. MUSCULOSKELETAL: As mentioned earlier. HEMATOLOGY/ONCOLOGY: As mentioned earlier. ENDOCRINE: As mentioned earlier. CONSTITUTIONAL: As mentioned earlier. DERMATOLOGY: Negative. RHEUMATOLOGY: Negative. PSYCHIATRY: As mentioned earlier. PHYSICAL EXAMINATION: Alert, oriented x3. Pulse 85, blood pressure 141/91, respiration 18, temperature normal, pulse ox 99% on room. HEENT: Conjunctivae normal. Oral mucosa moist. NECK: No jugular venous distention. No carotid bruit. No lymph node enlargement. CARDIOVASCULAR SYSTEM: S1, S2 muffled. RESPIRATORY SYSTEM: Breath sounds diminished at the bases. A few scattered rhonchi. No crackles. ABDOMEN: Soft, non-tender. No mass palpable. LEGS: No edema. No swelling. NERVOUS SYSTEM: Higher functions as mentioned earlier. Moves all 4 limbs. Mild diffuse weakness. LYMPHATICS: No lymph node palpable in neck, axillae or groin. SKIN: No ulcer, rash, bleeding. LABS: WBC 6.2, hemoglobin 9.8. INR is 1.8. Magnesium is 0.6, calcium is 8. UA noted. ASSESSMENT: 1. Possible acute right-sided pneumonia, possibly gram-negative. 2. Multiple electrolyte imbalances, including severe hypomagnesemia and severe hyponatremia. 3. Falls and gait dysfunction. 4. Atrial fibrillation. 5. History of congestive heart failure. 6. History of gastroesophageal reflux disease. 7. History of hearing disorder, deafness. 8. Memory impairment. 9. History of degenerative joint disease. 10.History of pneumonia. 11.History of rheumatoid arthritis. 12.History of hypothyroidism. 13.History of macular degeneration. 14.History of back surgery. 15.History of bariatric surgery. 16.Cardiac valve replacement. 17.Anxiety, depression. 18.FULL CODE. RECOMMENDATIONS AND DISCUSSION: In this 82-year-old woman who presented with multiple complex medical issues, we will monitor the patient closely, continue the current management, continue symptomatic treatment. Will initiate broad-spectrum IV antibiotics. Obtain the cultures. Resume the home medications. PT/OT evaluation. Supplement magnesium. Repeat magnesium. I would recommend a CT scan of the chest, abdomen and pelvis also; there could be some multiple fluid levels seen the x-rays; to rule out any acute abnormality. Prognosis extremely guarded because of multiple complex medical issues. Discussed with the patient. Further recommendations to follow. A copy of this dictation is being forwarded to Dr. Ariadne Henderson, who is the primary physician. MMJUANL / NATALIIAN: [id number] /
[2018-09-28] MEDS: ALPRAZolam 0.25 MG TAB PO SCH (21:43)
[2018-09-28] MEDS: DIPHENOX-ATROP 2.5-0.025 MG 1 EACH TAB PO SCH (21:43)
[2018-09-28] MEDS: ESTRADIOL 0.1 MG/GM VAGINAL CREAM 42.5 GM TUBE VAGINAL SCH (21:43)
[2018-09-28] MEDS: DONEPEZIL 5 MG TAB PO SCH (21:43)
[2018-09-28] MEDS: APIXABAN 5 MG TAB PO SCH (23:01)
[2018-09-28] MEDS: AMIODARONE 200 MG TAB PO SCH (23:01)
[2018-09-28] MEDS: LOPERAMIDE 2 MG CAP PO SCH (23:01)
[2018-09-28] MEDS: MELATONIN 5 MG TABLET PO SCH (23:01)
--- NOTE | 2018-09-29 00:09 | CT ---
EXAMINATION TYPE: CT ChestAbdPelvis wo con DATE OF EXAM: 09/28/2018 COMPARISON: None HISTORY: pneumonia. Fluid levels. Fell today. Pain. CT DLP: 408.8 mGycm. Automated Exposure Control for Dose Reduction was Utilized. TECHNIQUE: CT scan of the thorax, abdomen and pelvis is performed without IV contrast. FINDINGS: There are small bilateral pleural effusions. Heart is enlarged. There is moderate hiatal hernia. Ther e is patchy perihilar bilateral pulmonary infiltrate and atelectasis. There is no evidence of a pulmo nary mass. Thoracic aorta is atheromatous. There is no mediastinal adenopathy. There are no hilar mas ses. There is air in the biliary tree. There are clips from cholecystectomy. Liver shows no focal defect. There is no evidence of a splenic mass. There is pancreatic atrophy. There is no adrenal mass. Kidneys show no hydronephrosis. There is 2 cm cortical cyst lateral left ki dney. There is no retroperitoneal adenopathy. There is no ascites. Bladder distends smoothly. There i s no inguinal hernia. There are multiple phleboliths in the pelvis. There is atherosclerotic vascular calcification. Appendix is not seen. There is no sign of appendicitis. I see no evidence of a bowel obstruction. There is no evidence of free air. There are surgical clips in the right mid abdomen. The se are near the hepatic flexure of the colon. The shoulder joints appear intact. Ribs appear intact. There is old right posterior lower rib fractur es there is laminectomy defect in the lower lumbar spine.. There is a 5 mm subluxation at L4-5. There is no spondylolysis. There is 50% anterior wedging of T11 vertebral body. This appears old. I see no acute compression fracture. The bony pelvis appears intact . IMPRESSION: There are healing posterior lower rib fractures. Spondylotic changes. Patchy infiltrate and atelectas is at the lung bases and scarring at the lung bases not significantly different than old CT scan. No evidence of a bowel obstruction.
[2018-09-29] MEDS: LEVOTHYROXINE 100 MCG TAB PO SCH (06:13)
[2018-09-29] MEDS ORDERED: ACETAMINOPHEN TAB 325 MG TAB PO PRN (07:00)
[2018-09-29 09:07] LABS: Anion Gap 9 mmol/L; Blood Urea Nitrogen 8 mg/dL (7-17); Calcium 7.3 mg/dL (8.4-10.2); Carbon Dioxide 20 mmol/L (22-30); Chloride 109 mmol/L (98-107); Glucose 99 mg/dL (74-99); Magnesium 1.1 mg/dL (1.6-2.3); Potassium 3.6 mmol/L (3.5-5.1); Sodium 138 mmol/L (137-145)
[2018-09-29 09:10] LABS: Anisocytosis Slight; HCT 30.4 % (34.0-46.0); HGB 9.5 gm/dL (11.4-16.0); Hypochromasia Moderate; MCHC 31.3 g/dL (31.0-37.0); MCV 108.5 fL (80.0-100.0); Macrocytosis Marked; Mean Platelet Volume 8.1; Platelet Count 210 k/uL (150-450); RDW 19.9 % (11.5-15.5)
[2018-09-29] MEDS: PANTOPRAZOLE 40 MG TABLET PO SCH (09:41)
[2018-09-29] MEDS: DIPHENOX-ATROP 2.5-0.025 MG 1 EACH TAB PO SCH ×2 (09:42→20:49)
[2018-09-29] MEDS: LOPERAMIDE 2 MG CAP PO SCH ×3 (09:42→20:49)
[2018-09-29] MEDS: ALPRAZolam 0.25 MG TAB PO SCH ×3 (09:42→16:49)
[2018-09-29] MEDS: LORATADINE 10 MG TAB PO SCH (09:43)
[2018-09-29] MEDS: VENLAFAXINE HCL ER 150 MG CAP PO SCH (09:43)
[2018-09-29] MEDS: FOLIC ACID 1 MG TAB PO SCH (09:43)
[2018-09-29] MEDS: APIXABAN 5 MG TAB PO SCH ×2 (09:43→20:50)
[2018-09-29] MEDS: CALCIUM CARBONATE 500 MG CHEWABLE PO SCH (09:43)
[2018-09-29] MEDS: AMIODARONE 200 MG TAB PO SCH ×2 (09:43→20:49)
[2018-09-29] MEDS: METOPROLOL TARTRATE 50 MG TAB PO SCH (09:43)
[2018-09-29] MEDS: ALLOPURINOL 100 MG TAB PO SCH (09:43)
[2018-09-29] MEDS: LOSARTAN 25 MG TAB PO SCH (09:43)
[2018-09-29] MEDS: NIACIN TR 500 MG CAPSULE.ER PO SCH (09:44)
[2018-09-29] MEDS: TROSPIUM CHLORIDE 20 MG TABLET PO SCH (09:44)
[2018-09-29 11:36] LABS: Band Neutrophils % 1 %; Metamyelocytes % 1 %; Myelocytes % 1 %; Neutrophils % (M) 62 %; Nucleated Red Blood Cells 4 /100 WBC (0-0); Total Cells Counted 200
[2018-09-29 11:37] LABS: Eosinophils # (M) 0.08 k/uL (0-0.7); Lymphocytes # (M) 1.68 k/uL (1.0-4.8); Metamyelocytes # (M) 0.08 k/uL (0); Monocytes # (M) 1.43 k/uL (0-1.0); Myelocytes # (M) 0.08 k/uL (0); WBC 8.4 k/uL (3.8-10.6)
[2018-09-29 11:42] LABS: Poikilocytosis (M) Present
[2018-09-29 11:43] LABS: Polychromasia Present
[2018-09-29 11:45] LABS: Crenated RBC Present
[2018-09-29] MEDS: IRON POLYSACCHARIDES COMPLEX 150 MG CAP PO SCH (12:48)
[2018-09-29] MEDS: IPRATROPIUM BROMIDE 0.06% NASAL SPRAY (15 ML) EA NOSTRIL SCH (12:48)
[2018-09-29] MEDS: VIT A,C & E-LUTEIN-MINERALS 1 EACH TAB PO SCH (12:48)
[2018-09-29] MEDS: MAGNESIUM OXIDE 400 MG TAB PO SCH ×3 (12:52→22:53)
[2018-09-29] MEDS: MAGNESIUM SULFATE-D5W PMX 1 GM in DEXTROSE/WATER 1 100ML.BAG IVPB SCH ×2 (15:18→16:49)
--- NOTE | 2018-09-29 16:16 | PN ---
PROGRESS NOTE DATE OF SERVICE: 09/29/2018 This 82-year-old woman who was admitted with acute right-sided pneumonia, possibly gram- negative, also multiple electrolyte imbalances. Patient is feeling much better. No chest pain. No palpitations. No fever. CT scan of chest, abdomen and pelvis was noted. On exam, alert and oriented x3. Pulse 117, blood pressure 120/65, respiration 32, temperature 99.6, pulse ox 94% on room air. HEENT: Conjunctivae normal. NECK: No jugular venous distention. CARDIOVASCULAR SYSTEM: S1, S2 muffled. RESPIRATORY SYSTEM: Breath sounds diminished at the bases. A few scattered rhonchi and crackles. ABDOMEN: Soft, non-tender. No mass palpable. LEGS: No edema. No swelling. NERVOUS SYSTEM: No focal deficit. LABS: WBC 8.4, hemoglobin 9.5, monocytes 1.43. Sodium 138, potassium 3.6, magnesium 1.1. ASSESSMENT: 1. Acute right-sided pneumonia, possibly gram-negative. 2. Multiple electrolyte imbalances, including severe hypomagnesemia and severe hyponatremia. 3. Falls and gait dysfunction. 4. Atrial fibrillation. 5. History of congestive heart failure. 6. History of gastroesophageal reflux disease. 7. History of hearing disorder, deafness. 8. Memory impairment. 9. History of degenerative joint disease. 10.History of pneumonia. 11.History of rheumatoid arthritis. 12.History of hypothyroidism. 13.History of macular degeneration. 14.History of back surgery. 15.History of bariatric surgery. 16.History of cardiac valve replacement. 17.Anxiety, depression. 18.FULL CODE. RECOMMENDATIONS AND DISCUSSION: I recommend to continue current medication, continue with the monitoring, symptomatic treatment. Otherwise at this time I recommend continuing with antibiotics. Increase ambulation. Repeat labs. Obtain magnesium. IV magnesium has also been ordered. Continue to monitor. Further recommendations to follow. MMODL / IJN: [id number] /
[2018-09-29] MEDS: MELATONIN 5 MG TABLET PO SCH (20:49)
[2018-09-29] MEDS: TEMAZEPAM 15 MG CAP PO SCH (21:04)
[2018-09-29] MEDS: DONEPEZIL 5 MG TAB PO SCH (22:44)
[2018-09-30] MEDS: LEVOTHYROXINE 100 MCG TAB PO SCH (06:17)
[2018-09-30 07:46] LABS: Anisocytosis Slight; HCT 32.1 % (34.0-46.0); Hypochromasia Marked; MCH 33.9 pg (25.0-35.0); MCHC 31.2 g/dL (31.0-37.0); MCV 108.7 fL (80.0-100.0); Macrocytosis Marked; Platelet Count 219 k/uL (150-450); Poikilocytosis Slight; RBC 2.95 m/uL (3.80-5.40); RDW 19.7 % (11.5-15.5)
[2018-09-30 08:02] LABS: Anion Gap 10 mmol/L; Blood Urea Nitrogen 10 mg/dL (7-17); Calcium 7.5 mg/dL (8.4-10.2); Carbon Dioxide 22 mmol/L (22-30); Chloride 106 mmol/L (98-107); Glucose 99 mg/dL (74-99); Magnesium 1.6 mg/dL (1.6-2.3); Potassium 3.8 mmol/L (3.5-5.1); Sodium 138 mmol/L (137-145)
[2018-09-30 09:30] LABS: Band Neutrophils % 1 %; Lymphocytes # (M) 2.39 k/uL (1.0-4.8); Monocytes # (M) 0.85 k/uL (0-1.0); Neutrophils % (M) 57 %; Nucleated Red Blood Cells 4 /100 WBC (0-0); Total Cells Counted 100; WBC 7.7 k/uL (3.8-10.6)
[2018-09-30 09:31] LABS: Mixed Population RBC Present; Polychromasia Present; RBC Fragments Present
[2018-09-30] MEDS: VIT A,C & E-LUTEIN-MINERALS 1 EACH TAB PO SCH (11:10)
[2018-09-30] MEDS: IRON POLYSACCHARIDES COMPLEX 150 MG CAP PO SCH (11:10)
[2018-09-30] MEDS: LOPERAMIDE 2 MG CAP PO SCH ×3 (11:10→23:06)
[2018-09-30] MEDS: LORATADINE 10 MG TAB PO SCH (11:10)
[2018-09-30] MEDS: METOPROLOL TARTRATE 50 MG TAB PO SCH (11:10)
[2018-09-30] MEDS: DIPHENOX-ATROP 2.5-0.025 MG 1 EACH TAB PO SCH ×2 (11:10→23:05)
[2018-09-30] MEDS: NIACIN TR 500 MG CAPSULE.ER PO SCH (11:10)
[2018-09-30] MEDS: VENLAFAXINE HCL ER 150 MG CAP PO SCH (11:10)
[2018-09-30] MEDS: LOSARTAN 25 MG TAB PO SCH (11:10)
[2018-09-30] MEDS: ALLOPURINOL 100 MG TAB PO SCH (11:11)
[2018-09-30] MEDS: AMIODARONE 200 MG TAB PO SCH ×2 (11:11→23:06)
[2018-09-30] MEDS: ALPRAZolam 0.25 MG TAB PO SCH ×3 (11:11→18:10)
[2018-09-30] MEDS: FOLIC ACID 1 MG TAB PO SCH (11:11)
[2018-09-30] MEDS: TROSPIUM CHLORIDE 20 MG TABLET PO SCH (11:11)
[2018-09-30] MEDS: PANTOPRAZOLE 40 MG TABLET PO SCH (11:11)
[2018-09-30] MEDS: MAGNESIUM OXIDE 400 MG TAB PO SCH ×3 (11:11→23:05)
[2018-09-30] MEDS: APIXABAN 5 MG TAB PO SCH ×2 (11:11→23:06)
[2018-09-30] MEDS: CALCIUM CARBONATE 500 MG CHEWABLE PO SCH (11:11)
[2018-09-30] MEDS ORDERED: ERGOCALCIFEROL 50,000 UNIT CAP PO SCH (12:00)
--- NOTE | 2018-09-30 13:59 | CDI ---
Last Revision, October 2017 Documentation Clarification Form Date: 09/30/18 From: Libra Singer RN Admit Date: 09/28/2018 4:30:00 PM Patient Name: Rabia Robert Visit Number: [id number] ATTENTION: The Clinical Documentation Specialists (CDI) and [facility] Coding Staff appreciate your assistance in clarifying documentation. Please respond to the clarification below the line at the bottom and electronically sign. The CDI & [facility] Coding staff will review the response and follow-up if needed. Please note: Queries are made part of the Legal Health Record. If you have any questions, please contact the author of this message via ITS. Liam Dacosta MD, Can you please render your opinion on the following documentation? Patient presented with a fall at home. Admitted for: possible acute right sided pneumonia, possibly gram negative, multiple electrolyte imbalances including severe hypomagnesaemia and hyponatremia, falls and gait dysfunction. History/Risk Factors: A FIB, CHF, pneumonia, RA, hypothyroidism, cardiac valve replacement, anxiety, depression Clinical Indicators: Vital Signs on admission: T 97.7, P 88, R 18, 127/77, 95% RA WBC on admission: 6.2 Urinalysis: Appearance Turbid, specific gravity >1.050, protein 1+, blood small, Leukocyte esterase large, RBC 19, WBC 106, Epith cells 10, sediment rare , bacteria many Urine Culture: Gram Neg Bacilli Treatment: Antibiotics: Ceftriaxone IVPB Please document the condition that these clinical indicators signify, whether Present on Admission, and cause if known: UTI With Sepsis If due to catheter, device or implant, please document Specify organism, if known Identify location of infection (if known) Bladder, Kidney, Urethra Contaminated specimen Other, please specify Unable to determine Present on Admission: Yes No UTI Present on Admission: MTDD
--- NOTE | 2018-09-30 14:18 | CDI ---
Last Revision, October 2017 Documentation Clarification Form Date: 09/30/18 From: Libra Singer RN Admit Date: 09/28/2018 4:30:00 PM Patient Name: Rabia Robert Visit Number: [id number] ATTENTION: The Clinical Documentation Specialists (CDI) and [facility] Coding Staff appreciate your assistance in clarifying documentation. Please respond to the clarification below the line at the bottom and electronically sign. The CDI & [facility] Coding staff will review the response and follow-up if needed. Please note: Queries are made part of the Legal Health Record. If you have any questions, please contact the author of this message via ITS. Liam Dacosta MD, Can you please render your opinion on the following documentation? Patient admitted with possible acute right sided pneumonia possibly gram negative,multiple electrolyte imbalances including severe hypomagnesaemia and hyponatremia. History/Risk Factors: A FIB, CHF, pneumonia, RA, hypothyroidism, cardiac valve replacement Clinical Indicators: H&P: Mild diffuse weakness Labs: Albumin 3.0, Total Protein 5.7 Current BMI: 9.6 Treatment: Dietary Consult: none Lab monitoring: Albumin, Total Protein In your professional opinion, can you please clarify if these findings signify one of the following conditions? Mild Protein-Calorie Malnutrition Moderate Protein-Calorie Malnutrition Malnutrition, Unspecified Other condition, please specify Unable to determine None MTDD
--- NOTE | 2018-09-30 16:32 | PN ---
PROGRESS NOTE DATE OF SERVICE: 09/30/2018 This 82-year-old woman who was admitted with right-sided pneumonia also had UTI with gram-negative bacilli growing from the culture. Final ID is pending. No chest pain. No palpitations. No fever. On exam, alert and oriented x3. Pulse 90, blood pressure 109/73, respiration 19, temperature 98.4, pulse ox 95% on room air. HEENT: Conjunctivae normal. Oral mucosa moist. NECK: No jugular venous distention. No carotid bruit. No lymph node enlargement. CARDIOVASCULAR SYSTEM: S1, S2 muffled. RESPIRATORY SYSTEM: Breath sounds diminished at the bases. No rhonchi. No crackles. ABDOMEN: Soft, non-tender. No mass palpable. LEGS: No edema. No swelling. NERVOUS SYSTEM: No focal deficit. LABS: WBC 7.7, hemoglobin is 10. Otherwise, calcium is 7.5. ASSESSMENT: 1. Acute right-sided pneumonia possibly gram-negative. 2. Acute urinary tract infection with gram-negative bacilli. 3. Multiple electrolyte abnormalities, including severe hypomagnesemia and severe hyponatremia. 4. Falls and gait dysfunction. 5. Atrial fibrillation. 6. History of congestive heart failure. 7. Gastroesophageal reflux disease. 8. History of hearing disorder, deafness. 9. Memory impairment. 10.History of degenerative joint disease. 11.History of pneumonia. 12.History of rheumatoid arthritis. 13.History of hypothyroidism. 14.History of macular degeneration. 15.History of back surgery. 16.History of bariatric surgery. 17.History of cardiac valve replacement. 18.History of anxiety, depression. 19.FULL CODE. RECOMMENDATIONS AND DISCUSSION: I recommend to continue current medication, continue symptomatic treatment. Otherwise at this time I recommend monitoring the patient closely. Await the final ID of the organism. Continue the current antibiotics. Increase ambulation. Guarded prognosis. Further recommendations to follow. MMODL / IJN: [id number] /
[2018-09-30] MEDS: IPRATROPIUM BROMIDE 0.06% NASAL SPRAY (15 ML) EA NOSTRIL SCH (18:11)
[2018-09-30] MEDS: ESTRADIOL 0.1 MG/GM VAGINAL CREAM 42.5 GM TUBE VAGINAL SCH (23:05)
[2018-09-30] MEDS: MELATONIN 5 MG TABLET PO SCH (23:05)
[2018-09-30] MEDS: TEMAZEPAM 15 MG CAP PO SCH (23:06)
[2018-09-30] MEDS: DONEPEZIL 5 MG TAB PO SCH (23:07)
[2018-10-01] MEDS: LEVOTHYROXINE 100 MCG TAB PO SCH (06:24)
[2018-10-01 11:14] LABS: Anisocytosis Moderate; HCT 33.1 % (34.0-46.0); HGB 10.2 gm/dL (11.4-16.0); Hypochromasia Moderate; MCH 33.5 pg (25.0-35.0); MCHC 30.8 g/dL (31.0-37.0); MCV 109.1 fL (80.0-100.0); Macrocytosis Marked; Mean Platelet Volume 8.4; Platelet Count 219 k/uL (150-450); Poikilocytosis Slight; RBC 3.04 m/uL (3.80-5.40); RDW 20.3 % (11.5-15.5)
[2018-10-01] MEDS: PANTOPRAZOLE 40 MG TABLET PO SCH (11:30)
[2018-10-01] MEDS: TROSPIUM CHLORIDE 20 MG TABLET PO SCH (11:30)
[2018-10-01] MEDS: IRON POLYSACCHARIDES COMPLEX 150 MG CAP PO SCH (11:30)
[2018-10-01] MEDS: AMIODARONE 200 MG TAB PO SCH (11:30)
[2018-10-01] MEDS: ALPRAZolam 0.25 MG TAB PO SCH ×2 (11:30→16:30)
[2018-10-01] MEDS: CALCIUM CARBONATE 500 MG CHEWABLE PO SCH (11:30)
[2018-10-01] MEDS: NIACIN TR 500 MG CAPSULE.ER PO SCH (11:31)
[2018-10-01] MEDS: ALLOPURINOL 100 MG TAB PO SCH (11:31)
[2018-10-01] MEDS: METOPROLOL TARTRATE 50 MG TAB PO SCH (11:31)
[2018-10-01] MEDS: LOPERAMIDE 2 MG CAP PO SCH ×2 (11:31→16:30)
[2018-10-01] MEDS: VIT A,C & E-LUTEIN-MINERALS 1 EACH TAB PO SCH (11:31)
[2018-10-01] MEDS: MAGNESIUM OXIDE 400 MG TAB PO SCH ×2 (11:31→16:31)
[2018-10-01] MEDS: APIXABAN 5 MG TAB PO SCH (11:31)
[2018-10-01] MEDS: LORATADINE 10 MG TAB PO SCH (11:31)
[2018-10-01] MEDS: LOSARTAN 25 MG TAB PO SCH (11:31)
[2018-10-01] MEDS: DIPHENOX-ATROP 2.5-0.025 MG 1 EACH TAB PO SCH (11:32)
[2018-10-01] MEDS: FOLIC ACID 1 MG TAB PO SCH (11:32)
[2018-10-01] MEDS: IPRATROPIUM BROMIDE 0.06% NASAL SPRAY (15 ML) EA NOSTRIL SCH (11:36)
[2018-10-01] MEDS: VENLAFAXINE HCL ER 150 MG CAP PO SCH (11:36)
[2018-10-01 11:46] LABS: Anion Gap 14 mmol/L; Calcium 7.5 mg/dL (8.4-10.2); Carbon Dioxide 21 mmol/L (22-30); Chloride 104 mmol/L (98-107); Glucose 110 mg/dL (74-99); Potassium 3.9 mmol/L (3.5-5.1); Sodium 139 mmol/L (137-145)
[2018-10-01 12:02] LABS: Magnesium 1.5 mg/dL (1.6-2.3)
[2018-10-01 12:14] VITALS: RESP 16
[2018-10-01 12:21] LABS: Blood Urea Nitrogen 17 mg/dL (7-17)
[2018-10-01 14:27] LABS: Monocytes # (M) 1.08 k/uL (0-1.0); Neutrophils # (M) 3.08 k/uL (1.3-7.7); Neutrophils % (M) 54 %; Nucleated Red Blood Cells 2 /100 WBC (0-0); Total Cells Counted 200; WBC 5.7 k/uL (3.8-10.6)
[2018-10-01 14:28] LABS: Polychromasia Present; RBC Fragments Present; Toxic Granulation Present
[2018-10-01] MEDS ORDERED: MAGNESIUM SULFATE-D5W PMX 1 GM in DEXTROSE/WATER 1 100ML.BAG IVPB SCH (15:00)
[2018-10-01 15:20] VITALS: BP 123/86; PULSE 84; TEMP 98
--- NOTE | 2018-10-02 07:06 | DS ---
DISCHARGE SUMMARY DATE OF SERVICE: 10/01/2018. FINAL DIAGNOSES: 1. Acute right-sided pneumonia possibly gram-negative. 2. Acute urinary tract infection with E coli and Klebsiella pneumonia. 3. Multiple abnormalities including have severe hypomagnesemia and severe hyponatremia. 4. Fall and gait dysfunction. 5. Atrial fibrillation. 6. History of congestive heart failure. 7. History of gastroesophageal reflux disease. 8. History of hearing disorder, deafness. 9. Memory impairment. 10.History of degenerative joint disease. 11.History pneumonia. 12.History of rheumatoid arthritis. 13.History of hypothyroidism. 14.History of macular degeneration. 15.History of back surgery. 16.History of bariatric surgery. 17.History of cardiac valve replacement. 18.History of anxiety and depression. 19.FULL CODE. DISCHARGE CONDITION: The patient will be discharged in stable condition with guarded prognosis. HISTORY OF PRESENT ILLNESS: This 82-year-old woman with a past medical history of multiple medical problems, admitted with acute right-sided pneumonia. The patient was treated with antibiotics. The patient has a UTI and severe hypomagnesemia was noted, which was repeated on multiple occasions. Currently, magnesium is 1.5. PHYSICAL EXAMINATION: On exam, vitals are stable. Cardiovascular S1, S2. Abdomen soft. No tenderness. Nervous system, no focal deficits. DISCHARGE ACTIVITY: Limited. FOLLOWUP: 1. Follow up with Dr. Ariadne Henderson in 1 to 2 days. 2. Followup labs CBC, BMP, magnesium in the outpatient setting. TOTAL TIME TAKEN: 35 minutes. MEDICATIONS: 1. Orencia 120 mg subcutaneous every 14. 2. Zyloprim 100 mg p.o. daily. 3. Xanax 0.5 t.i.d. 4. Cordarone 200 mg p.o. b.i.d. 5. Eliquis 5 mg p.o. b.i.d. 6. Calcium 600 mg daily. 7. Zyrtec 10 mg daily. 8. Lomotil 1 tablet p.o. b.i.d. 9. Aricept 5 mg at bedtime. 10.Procrit 40,000 subcutaneous 180 daily. 11.Drisdol 50,000 p.o. Wednesday. 12.Nexium 40 mg p.o. daily. 13.Estradiol cream for local application Wednesday, Wednesday, Wednesday. 14.Folic acid 1 mg p.o. daily. 15.Atrovent nasal spray daily. 16.Iron sulfate 150 mg p.o. daily. 17.Synthroid 100 mcg p.o. daily. 18.Lidocaine 1 application b.i.d. p.r.n. 19.Imodium AD 4 mg p.o. t.i.d. 20.Cozaar 25 mg p.o. daily. 21.Melatonin 5 mg p.o. at bedtime. 22.Lopressor 50 mg p.o. daily. 23.Niaspan 500 mg p.o. daily. 24.VESIcare 5 mg p.o. daily. 25.Restoril 30 mg at bedtime. 26.Effexor XR 150 mg p.o. daily. 27.I-caps 1 p.o. daily. 28.Magnesium oxide 400 mg p.o. t.i.d. 29.Macrodantin 50 mg every 6 hours for 4 days. Once again, the patient is being discharged in stable condition with guarded prognosis. MMODL / IJN: [id number] /
[2019-03-28] MEDS ORDERED: DARBEPOETIN ALFA 100MCG/0.5ML SYRINGE SQ SCH (12:00)
== END 2018-10-01 16:56 | disposition home or self-care (01) | DRG 178 ==
LOC: EC 12:56 → 3SCARD 16:30 → 4SSUR 09-29 03:01
PROVIDERS: ADMIT Internal Medicine; ATTEND Internal Medicine
DX: J15.6 Pneumonia due to other Gram-negative bacteria (principal); E87.1 Hypo-osmolality and hyponatremia; N39.0 Urinary tract infection, site not specified; E83.42 Hypomagnesemia; E03.9 Hypothyroidism, unspecified; F32.9 Major depressive disorder, single episode, unspecified; F41.9 Anxiety disorder, unspecified; B96.20 Unspecified Escherichia coli [E. coli] as the cause of diseases classified elsewhere; B96.1 Klebsiella pneumoniae [K. pneumoniae] as the cause of diseases classified elsewhere; H91.90 Unspecified hearing loss, unspecified ear; D46.9 Myelodysplastic syndrome, unspecified; N32.81 Overactive bladder; M06.9 Rheumatoid arthritis, unspecified; W18.39XA Other fall on same level, initial encounter; H35.30 Unspecified macular degeneration; I48.91 Unspecified atrial fibrillation; K21.9 Gastro-esophageal reflux disease without esophagitis; M19.90 Unspecified osteoarthritis, unspecified site; I50.9 Heart failure, unspecified; Z98.84 Bariatric surgery status; Z82.49 Family history of ischemic heart disease and other diseases of the circulatory system; Z87.01 Personal history of pneumonia (recurrent); Z95.2 Presence of prosthetic heart valve; Z90.49 Acquired absence of other specified parts of digestive tract; Z79.01 Long term (current) use of anticoagulants; Z79.890 Hormone replacement therapy; Z79.899 Other long term (current) drug therapy; Z88.8 Allergy status to other drugs, medicaments and biological substances
CPT/HCPCS: 12001; 36415; 70450; 71046; 71250; 72125; 72170; 74176; 80048; 80053; 81001; 83735; 85025; 85610; 87040; 87077; 87086; 87186; 93005; 96365; 96366; 96367; 99285

== ENCOUNTER → 2018-10-18 | Outpatient (CLI) | payer MEDICARE, OTHER ==
--- NOTE | 2018-10-18 15:34 | CT ---
EXAMINATION TYPE: CT chest wo con DATE OF EXAM: 10/18/2018 COMPARISON: 09/28/2018 HISTORY: Interstitial pulmonary disease CT DLP: 232.70 mGycm. Automated Exposure Control for Dose Reduction was Utilized. TECHNIQUE: CT scan of the thorax is performed without IV contrast. FINDINGS: LUNGS: There is subsegmental consolidation bilateral lower lobes. Most likely in the basis of atelect asis or resolving infiltrate. No significant interlobular septal thickening to suggest chronic interstitial lung disease. No pleura l effusion. No sizable pulmonary nodule. No pneumothorax. Mild bronchiectasis at the lung bases. MEDIASTINUM: Lack of IV contrast is noted to limit evaluation for mediastinal and especially hilar ad enopathy. There are no definitive greater than 1 cm hilar or mediastinal lymph nodes. Heart is marked ly enlarged. Cardiac valve replacement surgery noted. Atherosclerotic change of the aorta. Large hiat al hernia noted. OTHER: Postcholecystectomy changes are noted. Findings of pneumobilia are stable and likely related t o previous cholecystectomy. Hypertrophic change of the vertebral column noted. Hypodense left renal u pper pole lesion is indeterminate by high-resolution CT technique. However, finding is stable. IMPRESSION: 1. Bilateral lower lobe subsegmental consolidation consistent with atelectasis or resolving infiltrat e. Correlate clinically. 2. No diagnostic evidence of interstitial lung disease. Mild basilar bronchiectasis noted. 3. Post cholecystectomy with findings of pneumobilia stable from recent CT scan. 4. Marked cardiomegaly. 5. Large hiatal hernia.
== END | disposition home or self-care (01) ==
LOC: RADCTMAIN 12:50
PROVIDERS: ATTEND Internal Medicine
DX: J47.9 Bronchiectasis, uncomplicated (principal)
CPT/HCPCS: 71250

== ENCOUNTER → 2019-02-17 | Outpatient (CLI) | payer MEDICARE, OTHER ==
--- NOTE | 2019-02-21 09:34 | MM ---
Reason for exam: screening (asymptomatic). Last mammogram was performed 1 year and 9 months ago. History: Patient is postmenopausal. Family history of breast cancer in cousin at age 61. Benign excisional biopsy of the left breast, January 17, 2003. Stereotactic core biopsy, December 21, 2002. Benign core biopsy of the right breast. Physical Findings: A clinical breast exam by your physician is recommended on an annual basis and results should be correlated with mammographic findings. MG 3D Screening Mammo W/Cad Bilateral CC, MLO, and XCCL view(s) were taken. Prior study comparison: June 02, 2017, bilateral MG 3d screening mammo w/cad. December 10, 2015, bilateral MG 3d screening mammo w/cad. The breast tissue is almost entirely fat. Previous mammotome biopsy in the right breast. No significant changes when compared with prior studies. ASSESSMENT: Benign, BI-RAD 2 RECOMMENDATION: Routine screening mammogram of both breasts in 1 year.
== END ==
LOC: RADMAMWWP 15:55
PROVIDERS: ATTEND Family Medicine
DX: Z12.31 Encounter for screening mammogram for malignant neoplasm of breast (principal)
CPT/HCPCS: 77063; 77067

== ENCOUNTER 2021-03-21 15:14 | Emergency (ER) | payer MEDICARE, OTHER ==
[2021-03-21] MEDS ORDERED: ACETAMINOPHEN TAB 325 MG TAB PO STA (15:44)
[2021-03-21 15:58] LABS: Anisocytosis Slight; Basophils % (A) 0 %; Eosinophils # (A) 0.1 k/uL (0-0.7); Eosinophils % (A) 1 %; HCT 27.8 % (34.0-46.0); HGB 8.9 gm/dL (11.4-16.0); Hypochromasia Slight; Lymphocytes # (A) 1.2 k/uL (1.0-4.8); Lymphocytes % (A) 21 %; MCH 34.4 pg (25.0-35.0); MCV 107.4 fL (80.0-100.0); Macrocytosis Marked; Mean Platelet Volume 8.4; Monocytes # (A) 0.4 k/uL (0-1.0); Monocytes % (A) 7 %; Neutrophils % (A) 69 %; Platelet Count 254 k/uL (150-450); RBC 2.59 m/uL (3.80-5.40); RDW 16.7 % (11.5-15.5); WBC 5.8 k/uL (3.8-10.6)
[2021-03-21 16:00] VITALS: RESP 18
[2021-03-21 16:08] LABS: African American GFR (CKD) >90 (>60 ml/min/1.73 sqM); Anion Gap 5 mmol/L; Blood Urea Nitrogen 15 mg/dL (7-17); Calcium 8.5 mg/dL (8.4-10.2); Carbon Dioxide 25 mmol/L (22-30); Chloride 108 mmol/L (98-107); Glucose 65 mg/dL (74-99); Non-African American GFR(CKD) 83 (>60 ml/min/1.73 sqM); Potassium 4.7 mmol/L (3.5-5.1); Sodium 138 mmol/L (137-145)
[2021-03-21 16:09] LABS: INR 1.5 (<1.2); Partial Thromboplastin Time 28.4 sec (22.0-30.0); Prothrombin Time 14.7 sec (9.0-12.0)
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
[2021-03-21 16:18] LABS: Poikilocytosis (M) Present
--- NOTE | 2021-03-21 17:04 | CT ---
EXAM: CT brain wo con CLINICAL HISTORY: Pain/injury status post fall. COMPARISON: 09/28/2018 TECHNIQUE: Contiguous axial noncontrast images of the brain were obtained. Coronal and sagittal refor mats were generated and reviewed. Automated dose control was used for this exam. FINDINGS: There is no evidence for intracranial hemorrhage, mass effect or midline shift. The white matter is g rossly preserved Ventricular size and configuration is within normal limits for degree of parenchymal volume. The paranasal sinuses are clear. The mastoid air cells are clear. No evidence for calvarial fracture. There is mild right parietal scalp swelling. IMPRESSION: No acute intracranial abnormality. Right parietal scalp swelling.
--- NOTE | 2021-03-21 17:29 | XR ---
Result: History: Pain status post fall. Comparison: None available. Technique: Four views of the right ribs with PA chest. Findings: There is age indeterminate right 10th rib fracture. The remaining visualized osseous structures are in anatomic alignment. The cardiac silhouette is enlarged. There is diffuse mild hazy opacity with trace focal opacity in t he left midlung. There is probable trace right pleural effusion. No pneumothorax. Prior cardiothoraci c postsurgical changes seen. Impression: Age-indeterminate right 10th rib fracture. Mild interstitial edema/atelectasis with probable trace pleural effusion.
[2021-03-21] MEDS ORDERED: DEXTROSE 50% SYRINGE 50 ML IVP STA (17:33)
[2021-03-21 17:54] LABS: Glucose,Whole Blood 57 mg/dL (75-99)
[2021-03-21 18:18] LABS: Glucose,Whole Blood 126 mg/dL (75-99)
[2021-03-21 18:35] VITALS: BP 127/99; PULSE 73; TEMP 97.6
== END 2021-03-21 18:36 | disposition home or self-care (01) ==
LOC: EC 15:14
DX: S09.90XA Unspecified injury of head, initial encounter (principal); S22.31XA Fracture of one rib, right side, initial encounter for closed fracture; E16.2 Hypoglycemia, unspecified; D64.9 Anemia, unspecified; K21.9 Gastro-esophageal reflux disease without esophagitis; M06.9 Rheumatoid arthritis, unspecified; F32.9 Major depressive disorder, single episode, unspecified; F41.9 Anxiety disorder, unspecified; M19.90 Unspecified osteoarthritis, unspecified site; H91.90 Unspecified hearing loss, unspecified ear; I48.91 Unspecified atrial fibrillation; I50.9 Heart failure, unspecified; R07.81 Pleurodynia; R60.9 Edema, unspecified; Z79.01 Long term (current) use of anticoagulants; Z82.49 Family history of ischemic heart disease and other diseases of the circulatory system; Z91.81 History of falling; Z95.2 Presence of prosthetic heart valve; W17.89XA Other fall from one level to another, initial encounter
CPT/HCPCS: 36415; 70450; 80048; 85025; 85610; 85730; 96374; 99284

== ENCOUNTER 2021-04-13 | Inpatient (IN) | payer MEDICARE, OTHER | END 2021-04-17 15:00 | DRG 641 | PROVIDERS: ADMIT Family Medicine | DX: E86.0 Dehydration (principal); E44.1 Mild protein-calorie malnutrition; R64 Cachexia; Z68.1 Body mass index [BMI] 19.9 or less, adult; J44.9 Chronic obstructive pulmonary disease, unspecified; R62.7 Adult failure to thrive; Z20.822 Contact with and (suspected) exposure to COVID-19; M47.817 Spondylosis without myelopathy or radiculopathy, lumbosacral region; F32.9 Major depressive disorder, single episode, unspecified; F41.9 Anxiety disorder, unspecified; I10 Essential (primary) hypertension; S43.004A Unspecified dislocation of right shoulder joint, initial encounter; M19.111 Post-traumatic osteoarthritis, right shoulder; G89.29 Other chronic pain; K52.9 Noninfective gastroenteritis and colitis, unspecified; R26.2 Difficulty in walking, not elsewhere classified; Z77.22 Contact with and (suspected) exposure to environmental tobacco smoke (acute) (chronic); K62.3 Rectal prolapse; Z79.01 Long term (current) use of anticoagulants; Z79.890 Hormone replacement therapy; Z79.899 Other long term (current) drug therapy; Z99.3 Dependence on wheelchair; Z90.49 Acquired absence of other specified parts of digestive tract; Z95.2 Presence of prosthetic heart valve; Z87.19 Personal history of other diseases of the digestive system; Z88.8 Allergy status to other drugs, medicaments and biological substances | CPT/HCPCS: 36415; 70450; 71046; 80048; 80053; 82272; 82607; 82746; 83540; 83550; 83605; 83735; 85025; 85045; 87040; 87635; 93005; 96360; 99285 ==

== ENCOUNTER 2021-05-28 16:01 | Inpatient (IN) | payer MEDICARE, OTHER ==
[2021-05-28] MEDS ORDERED: PANTOPRAZOLE 40 MG/10 ML VIAL IVP STA (16:45)
--- NOTE | 2021-05-28 17:15 | ED ---
GI Bleed HPI - General Chief complaint: GI Bleed Stated complaint: possible GI Bleed Time Seen by Provider: 05/28/21 16:32 Source: EMS Mode of arrival: EMS Limitations: altered mental status, physical limitation - History of Present Illness Initial comments: Patient is an 85-year-old female, history of heart disease, COPD on 3 L, presenting from [facility] for possible GI bleed. She had a positive occult test there. She is on eliquis secondary to A. fib. She denies any complaints at this time, no abdominal pain, no nausea or vomiting no chest pain or shortness of breath. Patient is a poor historian. No other family or information provided. - Related Data Home Medications Medication Instructions Recorded Confirmed Venlafaxine HCl [Effexor XR] 150 mg PO DAILY@0900 07/22/18 05/28/21 ALPRAZolam [Xanax] 0.25 mg PO BID@0900,1300 09/28/18 05/28/21 Loperamide HCl [Imodium A-D] 2 - 4 mg PO TID PRN 09/28/18 05/28/21 Apixaban [Eliquis] 5 mg PO BID@0900,209904/13/21 05/28/21 Ergocalciferol (Vitamin D2) 1,250 mcg PO MO 04/13/21 05/28/21 [Drisdol (50,000 Iu)] Levothyroxine Sodium [Synthroid] 100 mcg PO DAILY@209904/13/21 05/28/21 Omeprazole 20 mg PO DAILY@209904/13/21 05/28/21 ALPRAZolam [Xanax] 0.5 mg PO HS@209905/28/21 05/28/21 Acetaminophen Tab [Tylenol] 650 mg PO TID@0900,1300,209905/28/21 05/28/21 Acetaminophen [Tylenol Arthritis] 650 mg PO Q8H PRN 05/28/21 05/28/21 Artificial Tears-Hypromellose 1 drops BOTH EYES BID PRN 05/28/21 05/28/21 [Artificial Tear Drops] Bismuth Subsalicylate 524 mg PO Q4H PRN 05/28/21 05/28/21 [Pepto-Bismol] Cholestyramine (with Sugar) 4 gm PO DAILY@0900 05/28/21 05/28/21 [Questran] Ferrous Sulfate [Iron (65 MG 325 mg PO TID@0900,1300,2100 05/28/21 05/28/21 Elemental)] Fluticasone Nasal [place] [Flonase 1 spray EA NOSTRIL DAILY@0600 05/28/21 05/28/21 Nasal [place]] Lactobacillus Acidophilus 2 cap PO DAILY@0900 05/28/21 05/28/21 [Acidophilus] Lactose-Reduced Food [Ensure Plus] 1 can PO BID@0900,1700 05/28/21 05/28/21 Melatonin 3 mg PO HS PRN 05/28/21 05/28/21 Menthol [Biofreeze] 1 applic TOPICAL BID@0900,2100 05/28/21 05/28/21 Menthol [Biofreeze] 1 applic TOPICAL Q12H PRN 05/28/21 05/28/21 Midodrine HCl [ProAmatine] 10 mg PO TID@0900,1300,1800 05/28/21 05/28/21 traMADol HCl [Ultram] 50 mg PO TID PRN 05/28/21 05/28/21 Allergies Allergy/AdvReac Type Severity Reaction Status Date / Time clonazepam [From Klonopin] AdvReac Severe Hallucinati Verified 05/28/21 17:45 ons Review of Systems ROS Statement: Those systems with pertinent positive or pertinent negative responses have been documented in the HPI. ROS Other: All systems not noted in ROS Statement are negative. Past Medical History Past Medical History: Atrial Fibrillation, Chest Pain / Angina, Heart Failure, COPD, Eye Disorder, GERD/Reflux, Hearing Disorder / Deafness, Hypertension, Memory Impairment, Osteoarthritis (OA), Pneumonia, Rheumatoid Arthritis (RA), Thyroid Disorder Additional Past Medical History / Comment(s): prolapse rectum.lived with smokers but never smoked History of Any Multi-Drug Resistant Organisms: ESBL, None Reported Date of last positivie culture/infection: 03/04/21 MDRO Source:: ESBL URINE KL OXYOTCA Past Surgical History: Back Surgery, Bariatric Surgery, Bowel Resection, Cardiac Valve Replacement, Cholecystectomy, Orthopedic Surgery Additional Past Surgical History / Comment(s): back surgery Past Anesthesia/Blood Transfusion Reactions: No Reported Reaction Additional Past Anesthesia/Blood Transfusion Reaction / Comment(s): PAST BLOOD TRANSFUSION, no problems. Past Psychological History: Anxiety, Depression Smoking Status: Never smoker Past Alcohol Use History: None Reported Past Drug Use History: None Reported - Past Family History Mother Family Medical History: Myocardial Infarction ([place]) Father Family Medical History: Myocardial Infarction ([place]) General Exam - General Exam Comments Initial Comments: GENERAL: Patient is nontoxic and in no acute distress. HEAD: Atraumatic, normocephalic. EYES: Pupils equal round and reactive to light, extraocular movements intact, sclera anicteric, conjunctiva are normal. Eyelids were unremarkable. ENT: TMs normal, nares patent, oropharynx clear without exudates. Dry mucous membranes. NECK: Normal range of motion, supple without lymphadenopathy or JVD. LUNGS: Unlabored respirations. Breath sounds clear to auscultation bilaterally and equal. No wheezes rales or rhonchi. HEART: Regular rate and rhythm without murmurs, rubs or gallops. ABDOMEN: Soft, nontender, normoactive bowel sounds. No guarding, no rebound. No masses appreciated. : Deferred MUSCULOSKELETAL: Normal extremities with adequate strength and normal range of motion, no pitting or edema. No clubbing or cyanosis. NEUROLOGICAL: Patient is alert and oriented x 3. Motor and sensory are also intact. Cranial nerves II through XII grossly intact. Symmetrical smile. PSYCH: Normal mood, normal affect. SKIN: Warm, Dry, normal turgor, no rashes. Patient has superficial sacral wound, no obvious infection present. Limitations: altered mental status, physical limitation Course Vital Signs 05/28/21 05/28/21 05/28/21 16:13 16:35 17:49 Temperature 98.2 F Pulse Rate 50 L 43 L Respiratory 20 20 Rate Blood Pressure 92/55 108/52 111/48 O2 Sat by Pulse 90 L 88 L Oximetry Medical Decision Making - Medical Decision Making Patient is an 85-year-old female here from [facility] for possible GI bleeding after having a positive occult today. She is on eliquis secondary to A. fib. She has no complaints today, she is a poor historian. No belly pain. Labs show a stable hemoglobin at 9.8, creatinine is elevated at 1.78 with BUN at 49, lactic acid is 2.7, calcium was 5.6 with magnesium 0.6. Troponin is negative. Stool occult is positive. Patient is DNR. Patient's heart rate has been in the high 40s to low 50s, blood pressure has been stable, she is at 90% on 4 L of O2. Patient will be admitted for GI bleed, hypo-magnesium, hypocalcemia, bradycardic, dehydration. Patient accepted by Dr. Paula, she requests Dr. Lizarraga for possible GI bleed. Case discussed with Dr. Washington. - Lab Data Result diagrams: 05/28/21 17:09 05/28/21 17:09 Lab Results 05/28/21 05/28/21 05/28/21 Range/Units 17:09 17:09 17:09 WBC 6.9 (3.8-10.6) k/uL RBC 2.84 L (3.80-5.40) m/uL Hgb 9.8 L (11.4-16.0) gm/dL Hct 31.3 L (34.0-46.0) % MCV 110.2 H D (80.0-100.0) fL MCH 34.4 (25.0-35.0) pg MCHC 31.3 (31.0-37.0) g/dL RDW 19.3 H (11.5-15.5) % Plt Count 319 (150-450) k/uL MPV 10.7 Neutrophils % (Manual) 78 % Lymphocytes % (Manual) 17 % Monocytes % (Manual) 5 % Neutrophils # (Manual) 5.38 (1.3-7.7) k/uL Lymphocytes # (Manual) 1.17 (1.0-4.8) k/uL Monocytes # (Manual) 0.35 (0-1.0) k/uL Nucleated RBCs 7 H (0-0) /100 WBC Manual Slide Review Performed Polychromasia Present Hypochromasia Moderate Poikilocytosis (manual Present Anisocytosis Slight Macrocytosis Marked A Sodium 142 (137-145) mmol/L Potassium 5.0 (3.5-5.1) mmol/L Chloride 119 H (98-107) mmol/L Carbon Dioxide 11 L (22-30) mmol/L Anion Gap 12 mmol/L BUN 49 H (7-17) mg/dL Creatinine 1.78 H (0.52-1.04) mg/dL Est GFR (CKD-EPI)AfAm 30 (>60 ml/min/1.73 sqM) Est GFR (CKD-EPI)NonAf 26 (>60 ml/min/1.73 sqM) Glucose 76 (74-99) mg/dL Plasma Lactic Acid Tenzin (0.7-2.0) mmol/L Calcium 5.6 L* (8.4-10.2) mg/dL Magnesium 0.6 L* (1.6-2.3) mg/dL Total Bilirubin 0.5 (0.2-1.3) mg/dL AST 77 H (14-36) U/L ALT 21 (4-34) U/L Alkaline Phosphatase 177 H (38-126) U/L Troponin I (0.000-0.034) ng/mL Total Protein 6.0 L (6.3-8.2) g/dL Albumin 2.7 L (3.5-5.0) g/dL Stool Occult Blood Positive H (Negative) Blood Type Blood Type Recheck Bld Type Recheck Status Antibody Screen Spec Expiration Date 05/28/21 05/28/21 05/28/21 Range/Units 17:09 17:09 17:13 WBC (3.8-10.6) k/uL RBC (3.80-5.40) m/uL Hgb (11.4-16.0) gm/dL Hct (34.0-46.0) % MCV (80.0-100.0) fL MCH (25.0-35.0) pg MCHC (31.0-37.0) g/dL RDW (11.5-15.5) % Plt Count (150-450) k/uL MPV Neutrophils % (Manual) % Lymphocytes % (Manual) % Monocytes % (Manual) % Neutrophils # (Manual) (1.3-7.7) k/uL Lymphocytes # (Manual) (1.0-4.8) k/uL Monocytes # (Manual) (0-1.0) k/uL Nucleated RBCs (0-0) /100 WBC Manual Slide Review Polychromasia Hypochromasia Poikilocytosis (manual Anisocytosis Macrocytosis Sodium (137-145) mmol/L Potassium (3.5-5.1) mmol/L Chloride (98-107) mmol/L Carbon Dioxide (22-30) mmol/L Anion Gap mmol/L BUN (7-17) mg/dL Creatinine (0.52-1.04) mg/dL Est GFR (CKD-EPI)AfAm (>60 ml/min/1.73 sqM) Est GFR (CKD-EPI)NonAf (>60 ml/min/1.73 sqM) Glucose (74-99) mg/dL Plasma Lactic Acid Tenzin 2.7 H* (0.7-2.0) mmol/L Calcium (8.4-10.2) mg/dL Magnesium (1.6-2.3) mg/dL Total Bilirubin (0.2-1.3) mg/dL AST (14-36) U/L ALT (4-34) U/L Alkaline Phosphatase (38-126) U/L Troponin I <0.012 (0.000-0.034) ng/mL Total Protein (6.3-8.2) g/dL Albumin (3.5-5.0) g/dL Stool Occult Blood (Negative) Blood Type O Positive Blood Type Recheck O Pos Bld Type Recheck Status No Antibody Screen NEGATIVE Spec Expiration Date 05/31/2021 - 2313 - EKG Data EKG Comments: Junctional bradycardia, left axis deviation, possible lateral infarct, age undetermined, similar to previous on 04/13/2021. Ventricular rate 44, QRS duration 96, QTC 494. Disposition Clinical Impression: GI bleed, Hypocalcemia, Hypomagnesemia, Dehydration, Bradycardia Disposition: ADMITTED IP TO THIS [facility] Condition: Fair Referrals: Suyapa Paula MD [Primary Care Provider] - 1-2 days Decision Date: 05/28/21 Decision Time: 18:59
[2021-05-28 17:29] LABS: Anisocytosis Slight; HCT 31.3 % (34.0-46.0); HGB 9.8 gm/dL (11.4-16.0); Hypochromasia Moderate; MCH 34.4 pg (25.0-35.0); MCHC 31.3 g/dL (31.0-37.0); Macrocytosis Marked; Mean Platelet Volume 10.7; Platelet Count 319 k/uL (150-450); RBC 2.84 m/uL (3.80-5.40); RDW 19.3 % (11.5-15.5)
[2021-05-28 17:43] LABS: MCV 110.2 fL (80.0-100.0)
[2021-05-28 18:07] LABS: Albumin 2.7 g/dL (3.5-5.0); Total Bilirubin 0.5 mg/dL (0.2-1.3)
[2021-05-28 18:08] LABS: Calcium 5.6 mg/dL (8.4-10.2); Magnesium 0.6 mg/dL (1.6-2.3)
[2021-05-28] MEDS ORDERED: SODIUM CHLORIDE 0.9% 1,000 ML IV STA (18:19)
[2021-05-28] MEDS: MAGNESIUM SULFATE-D5W PMX 1 GM in DEXTROSE/WATER 1 100ML.BAG IVPB SCH ×2 (18:39→21:00)
[2021-05-28 18:47] LABS: Neutrophils % (M) 78 %; Nucleated Red Blood Cells 7 /100 WBC (0-0); Total Cells Counted 200
[2021-05-28 18:49] LABS: Lymphocytes # (M) 1.17 k/uL (1.0-4.8); Monocytes # (M) 0.35 k/uL (0-1.0); Neutrophils # (M) 5.38 k/uL (1.3-7.7); Poikilocytosis (M) Present; Polychromasia Present; WBC 6.9 k/uL (3.8-10.6)
[2021-05-28] MEDS ORDERED: NALOXONE 0.4 MG/ML 1 ML VIAL IV PRN (18:50)
[2021-05-28] MEDS ORDERED: HYDROmorphone 1 MG/ML 1 ML SYRINGE IVP PRN (21:24)
[2021-05-28 21:32] LABS: Partial Thromboplastin Time 97.8 sec (22.0-30.0)
[2021-05-28 21:40] LABS: Prothrombin Time >130.0 sec (9.0-12.0)
[2021-05-28 21:42] LABS: INR >10.0 (<1.2)
[2021-05-28] MEDS ORDERED: PHYTONADIONE 10 MG in SODIUM CHLORIDE 0.9% 50 ML IVPB STA (21:46)
--- NOTE | 2021-05-28 22:55 | CT ---
EXAMINATION TYPE: CT abdomen pelvis wo con DATE OF EXAM: 05/28/2021 COMPARISON: 09/28/2018 HISTORY: GI bleed CT DLP: 347 mGycm Automated exposure control for dose reduction was used. Images obtained from the diaphragm to the floor the pelvis with no contrast. Heart is enlarged. There is some infiltrate and atelectasis right lung base. There is moderate hiatal hernia. There is apparent cardiac valve surgery. There are sternal wires. There is no significant pl eural fluid. There are clips from cholecystectomy. Liver shows no focal defect. Spleen appears absent. I see no ev idence of pancreatic mass. There is no adrenal mass. Kidneys have normal size. There is no hydronephrosis. There is 2 cm cortica l cyst lateral left kidney. There is no retroperitoneal adenopathy. There is previous bowel surgery w ith surgical clips in the anterior lower abdomen. There is previous surgery at the rectosigmoid colon . There are some distended loops of small bowel in the mid abdomen. These measure up to 3 cm. There i s no ascites. There is no evidence of free air. There is subcutaneous edema around the abdomen. There is a degenerative first-degree L4-5 spondylolisthesis. There is T11 anterior wedging 50% consis tent with an old compression fracture. I see no focal bone destruction. The bony pelvis is intact. Hi p joints are intact. IMPRESSION: Previous bowel surgery. There is some mild dilation of small bowel in the mid abdomen that could rela te to ileus or partial mechanical obstruction. Moderately severe cardiomegaly. Hiatal hernia. Infiltrate and atelectasis in the right lower lobe. Sm all linear infiltrate in the lingula left upper lobe. Subcutaneous edema that could relate to anasarca. The bowel appears not significantly different than old exam. Subcutaneous edema unchanged.
[2021-05-28] MEDS ORDERED: DEXTROSE 50% SYRINGE 50 ML IVP ONE ×2 (23:29→23:45)
[2021-05-28 23:32] LABS: Glucose,Whole Blood 38 mg/dL (75-99)
[2021-05-28 23:32] LABS: Glucose,Whole Blood 34 mg/dL (75-99)
[2021-05-28 23:45] LABS: Glucose,Whole Blood 53 mg/dL (75-99)
[2021-05-29] LABS: Glucose,Whole Blood 102 mg/dL (75-99)
[2021-05-29 02:13] LABS: Glucose,Whole Blood 193 mg/dL (75-99)
[2021-05-29 06:09] LABS: Glucose,Whole Blood 90 mg/dL (75-99)
[2021-05-29] MEDS ORDERED: SODIUM CHLORIDE 0.9% 1,000 ML IV SCH (07:00)
[2021-05-29 07:46] VITALS: BP 99/67; PULSE 71; RESP 11; TEMP 97.1
[2021-05-29] MEDS ORDERED: ATROPINE OPHTH SOLN 1% 5ML BTL SUBLINGUAL PRN (08:41)
[2021-05-29] MEDS ORDERED: LORazepam 2 MG/ML INJ IV PRN (08:41)
[2021-05-29] MEDS ORDERED: DRY MOUTH SPRAY 44.3 SPRAY/44.3 ML SPRAY MUCOUS MEM PRN (08:41)
[2021-05-29] MEDS ORDERED: ONDANSETRON 4 MG/2 ML VIAL IVP PRN (08:41)
[2021-05-29] MEDS ORDERED: PANTOPRAZOLE 40 MG/10 ML VIAL IV SCH (09:00)
--- NOTE | 2021-05-29 11:17 | P.HPIM ---
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 Patient is currently residing at [facility] and was brought into the hospital for evaluation of GI bleed. Her hemoglobin was 9.8. Her eliquis was placed on hold. Other lab work revealed BUN of 49 creatinine 1.78. Stool for occult blood was positive. Troponin was negative. Magnesium 0.6 and lactic acid 2.7. Alkaline phosphatase 177, AST 77. EKG was a junctional bradycardia at rate of 44. Initial blood sugar was 34. Patient was in the active dying stages and guardian was contacted and patient has been made comfort care. Consults placed with social work regarding hospice. Consults with cardiology and general surgery canceled. REVIEW OF SYSTEMS Unable to obtain due to mental status PHYSICAL EXAMINATION Gen: This is a frail cachectic appearing 85-year-old female. HEENT: Head is atraumatic, normocephalic. Eyes are closed. LUNGS: Shallow respirations. HEART: Irregular rate and rhythm. 2/6 systolic murmur. ABDOMEN: Soft. EXTREMITIES: No pedal edema. NEUROLOGICAL: Unresponsive. ASSESSMENT AND PLAN 1. Acute GI bleeding, possible acute blood loss anemia. Stop all blood draws. Stop all aggressive treatment. Consult with general surgery canceled. 2. Metabolic encephalopathy secondary to impending . Patient started on comfort care, consult with hospice care and social work. 3. Bradycardia with junctional rhythm. Canceled consult with cardiology 4. Acute kidney injury. 5. Chronic persistent atrial fibrillation. 6. Mitral valve annuloplasty 7. Hypertension. 8. Chronic systolic heart failure. 9. Gastroesophageal reflux disease. 10. Rheumatoid arthritis. 11. Hypothyroidism. 12. Memory loss. Patient will be admitted to the hospital for a minimum of 2 night stay. DISCHARGE PLAN To be determined. Consult with social work and hospice. Impression and plan of care have been directed as dictated by the signing physician. Cristy Bashir nurse practitioner acting as scribe for signing physician. Past Medical History Past Medical History: Atrial Fibrillation, Chest Pain / Angina, Heart Failure, COPD, Eye Disorder, GERD/Reflux, Hearing Disorder / Deafness, Hypertension, Memory Impairment, Osteoarthritis (OA), Pneumonia, Rheumatoid Arthritis (RA), Thyroid Disorder Additional Past Medical History / Comment(s): prolapse rectum.lived with smokers but never smoked History of Any Multi-Drug Resistant Organisms: ESBL, None Reported Date of last positivie culture/infection: 03/04/21 MDRO Source:: ESBL URINE KL OXYOTCA Past Surgical History: Back Surgery, Bariatric Surgery, Bowel Resection, Cardiac Valve Replacement, Cholecystectomy, Orthopedic Surgery Additional Past Surgical History / Comment(s): back surgery Past Anesthesia/Blood Transfusion Reactions: No Reported Reaction Additional Past Anesthesia/Blood Transfusion Reaction / Comment(s): PAST BLOOD TRANSFUSION, no problems. Past Psychological History: Anxiety, Depression Additional Psychological History / Comment(s): lives at [facility] . pt stated she is independant uses [facility]- hx of falls and fell day of admit 09-28-18. Smoking Status: Never smoker Past Alcohol Use History: None Reported Past Drug Use History: None Reported - Past Family History Mother Family Medical History: Myocardial Infarction ([place]) Father Family Medical History: Myocardial Infarction ([place]) Medications and Allergies Home Medications Medication Instructions Recorded Confirmed Type Venlafaxine HCl [Effexor XR] 150 mg PO DAILY@0900 07/22/18 05/28/21 History ALPRAZolam [Xanax] 0.25 mg PO BID@0900,1300 09/28/18 05/28/21 History Loperamide HCl [Imodium A-D] 2 - 4 mg PO TID PRN 09/28/18 05/28/21 History Apixaban [Eliquis] 5 mg PO BID@0900,2100 04/13/21 05/28/21 History Ergocalciferol (Vitamin D2) 1,250 mcg PO MO 04/13/21 05/28/21 History [Drisdol (50,000 Iu)] Levothyroxine Sodium [Synthroid] 100 mcg PO DAILY@209904/13/21 05/28/21 History Omeprazole 20 mg PO DAILY@209904/13/21 05/28/21 History ALPRAZolam [Xanax] 0.5 mg PO HS@209905/28/21 05/28/21 History Acetaminophen Tab [Tylenol] 650 mg PO TID@0900,1300,2100 05/28/21 05/28/21 History Acetaminophen [Tylenol Arthritis] 650 mg PO Q8H PRN 05/28/21 05/28/21 History Artificial Tears-Hypromellose 1 drops BOTH EYES BID PRN 05/28/21 05/28/21 History [Artificial Tear Drops] Bismuth Subsalicylate 524 mg PO Q4H PRN 05/28/21 05/28/21 History [Pepto-Bismol] Cholestyramine (with Sugar) 4 gm PO DAILY@0900 05/28/21 05/28/21 History [Questran] Ferrous Sulfate [Iron (65 MG 325 mg PO TID@0900,1300,2100 05/28/21 05/28/21 History Elemental)] Fluticasone Nasal [place] [Flonase 1 spray EA NOSTRIL DAILY@0600 05/28/21 05/28/21 History Nasal [place]] Lactobacillus Acidophilus 2 cap PO DAILY@0900 05/28/21 05/28/21 History [Acidophilus] Lactose-Reduced Food [Ensure Plus] 1 can PO BID@0900,1700 05/28/21 05/28/21 History Melatonin 3 mg PO HS PRN 05/28/21 05/28/21 History Menthol [Biofreeze] 1 applic TOPICAL BID@0900,2100 05/28/21 05/28/21 History Menthol [Biofreeze] 1 applic TOPICAL Q12H PRN 05/28/21 05/28/21 History Midodrine HCl [ProAmatine] 10 mg PO TID@0900,1300,1800 05/28/21 05/28/21 History traMADol HCl [Ultram] 50 mg PO TID PRN 05/28/21 05/28/21 History Allergies Allergy/AdvReac Type Severity Reaction Status Date / Time clonazepam [From Klonopin] AdvReac Severe Hallucinati Verified 05/28/21 17:45 ons Physical Exam Vitals: Vital Signs Temp Pulse Pulse Resp BP BP Pulse Ox 05/29/21 08:00 71 11 L 05/29/21 07:45 97.1 F L 71 11 L 99/67 90 L 05/29/21 04:00 97.4 F L 54 L 14 99/55 97 05/29/21 02:00 44 L 12 05/29/21 00:00 97.4 F L 44 L 12 100/55 99 05/28/21 21:00 97.4 F L 37 L 14 108/60 100 05/28/21 20:00 37 L 14 05/28/21 19:22 40 L 20 108/66 95 05/28/21 17:49 43 L 20 111/48 88 L 05/28/21 16:35 108/52 05/28/21 16:13 98.2 F 50 L 20 92/55 90 L Intake and Output 05/28/21 05/29/21 05/29/21 22:59 06:59 14:59 Other: # Voids 0 0 Weight 40.823 kg 47 kg Results CBC & Chem 7: 05/28/21 17:09 05/28/21 17:09 Labs: Abnormal Lab Results - Last 24 Hours (Table) 05/28/21 05/28/21 05/28/21 Range/Units 17:09 17:09 17:09 RBC 2.84 L (3.80-5.40) m/uL Hgb 9.8 L (11.4-16.0) gm/dL Hct 31.3 L (34.0-46.0) % MCV 110.2 H D (80.0-100.0) fL RDW 19.3 H (11.5-15.5) % Nucleated RBCs 7 H (0-0) /100 WBC Macrocytosis Marked A PT (9.0-12.0) sec INR (<1.2) APTT (22.0-30.0) sec Chloride 119 H (98-107) mmol/L Carbon Dioxide 11 L (22-30) mmol/L BUN 49 H (7-17) mg/dL Creatinine 1.78 H (0.52-1.04) mg/dL POC Glucose (mg/dL) (75-99) mg/dL Plasma Lactic Acid [place] (0.7-2.0) mmol/L Calcium 5.6 L* (8.4-10.2) mg/dL Magnesium 0.6 L* (1.6-2.3) mg/dL AST 77 H (14-36) U/L Alkaline Phosphatase 177 H (38-126) U/L Total Protein 6.0 L (6.3-8.2) g/dL Albumin 2.7 L (3.5-5.0) g/dL Stool Occult Blood Positive H (Negative) 05/28/21 05/28/21 05/28/21 Range/Units 17:09 20:36 20:36 RBC (3.80-5.40) m/uL Hgb (11.4-16.0) gm/dL Hct (34.0-46.0) % MCV (80.0-100.0) fL RDW (11.5-15.5) % Nucleated RBCs (0-0) /100 WBC Macrocytosis PT >130.0 H (9.0-12.0) sec INR >10.0 H* (<1.2) APTT 97.8 H (22.0-30.0) sec Chloride (98-107) mmol/L Carbon Dioxide (22-30) mmol/L BUN (7-17) mg/dL Creatinine (0.52-1.04) mg/dL POC Glucose (mg/dL) (75-99) mg/dL Plasma Lactic Acid [place] 2.7 H* 4.1 H* (0.7-2.0) mmol/L Calcium (8.4-10.2) mg/dL Magnesium (1.6-2.3) mg/dL AST (14-36) U/L Alkaline Phosphatase (38-126) U/L Total Protein (6.3-8.2) g/dL Albumin (3.5-5.0) g/dL Stool Occult Blood (Negative) 05/28/21 05/28/21 05/28/21 Range/Units 23:28 23:29 23:44 RBC (3.80-5.40) m/uL Hgb (11.4-16.0) gm/dL Hct (34.0-46.0) % MCV (80.0-100.0) fL RDW (11.5-15.5) % Nucleated RBCs (0-0) /100 WBC Macrocytosis PT (9.0-12.0) sec INR (<1.2) APTT (22.0-30.0) sec Chloride (98-107) mmol/L Carbon Dioxide (22-30) mmol/L BUN (7-17) mg/dL Creatinine (0.52-1.04) mg/dL POC Glucose (mg/dL) 34 L 38 L 53 L (75-99) mg/dL Plasma Lactic Acid [place] (0.7-2.0) mmol/L Calcium (8.4-10.2) mg/dL Magnesium (1.6-2.3) mg/dL AST (14-36) U/L Alkaline Phosphatase (38-126) U/L Total Protein (6.3-8.2) g/dL Albumin (3.5-5.0) g/dL Stool Occult Blood (Negative) 05/28/21 05/29/21 Range/Units 23:58 02:12 RBC (3.80-5.40) m/uL Hgb (11.4-16.0) gm/dL Hct (34.0-46.0) % MCV (80.0-100.0) fL RDW (11.5-15.5) % Nucleated RBCs (0-0) /100 WBC Macrocytosis PT (9.0-12.0) sec INR (<1.2) APTT (22.0-30.0) sec Chloride (98-107) mmol/L Carbon Dioxide (22-30) mmol/L BUN (7-17) mg/dL Creatinine (0.52-1.04) mg/dL POC Glucose (mg/dL) 102 H 193 H (75-99) mg/dL Plasma Lactic Acid [place] (0.7-2.0) mmol/L Calcium (8.4-10.2) mg/dL Magnesium (1.6-2.3) mg/dL AST (14-36) U/L Alkaline Phosphatase (38-126) U/L Total Protein (6.3-8.2) g/dL Albumin (3.5-5.0) g/dL Stool Occult Blood (Negative) Thrombosis Risk Factor Assmnt - Choose All That Apply Each Risk Factor Represents 2 Points: Patient confined to bed Each Risk Factor Represents 3 Points: Age 75 years or older Thrombosis Risk Factor Assessment Total Risk Factor Score: 5 Thrombosis Risk Factor Assessment Level: High Risk
--- NOTE | 2021-05-29 12:57 | P.CRDCN ---
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 She follows in the office with Dr. Rainey. We have been asked to see in consultation for bradycardia. Patient is seen and examined at bedside, granddaughter at bedside. Patient is currently residing at [facility] and was brought into the hospital for evaluation of GI bleed. Stool for occult blood was positive. EKG was a junctional bradycardia at rate of 44. Laboratory data review WBC 6.9, hemoglobin 9.8, platelets 319, INR greater than 10, sodium 142, potassium 5.0, BUN 49, serum creatinine 1.7, magnesium 0.6, calcium 5.6, lactate 4.1, troponin negative 1. Per family, patient has been declining for some time now. Slowly not responding, having altered mental status, decline in PO intake. Patient appears to be in the active stages of dying. REVIEW OF SYSTEMS At the time of my exam: Patient unable to give accurate review of systems PHYSICAL EXAMINATION Blood pressure 99/55, heart rate 54, afebrile, on 4 L nasal cannula CONSTITUTIONAL: Frail and cachectic CHEST EXAMINATION: Lungs are diminished bilaterally, respirations shallow HEART EXAMINATION: Irregular rate and rhythm. S1, S2 heard. Systolic murmur ABDOMEN: Soft EXTREMITIES: No lower extremity edema and no calf tenderness. cyanosis bilateral hands NEUROLOGIC EXAMINATION: Unresponsive ASSESSMENT Bradycardia with junctional rhythm Anemia Metabolic encephalopathy secondary to actively dying Persistent atrial fibrillation Nonobstructive coronary artery disease Acute kidney injury Hypertension Mitral valve annuloplasty with amputation of left atrial appendage PLAN Per nursing patient most likely will be made comfort care. No further cardiac testing or interventions at this time. Rest per primary We will sign off at this time. Nurse Practitioner note has been reviewed, I agree with a documented findings and plan of care. Patient was seen and examined. Past Medical History Past Medical History: Atrial Fibrillation, Chest Pain / Angina, Heart Failure, COPD, Eye Disorder, GERD/Reflux, Hearing Disorder / Deafness, Hypertension, Memory Impairment, Osteoarthritis (OA), Pneumonia, Rheumatoid Arthritis (RA), Thyroid Disorder Additional Past Medical History / Comment(s): prolapse rectum.lived with smokers but never smoked History of Any Multi-Drug Resistant Organisms: ESBL, None Reported Date of last positivie culture/infection: 03/04/21 MDRO Source:: ESBL URINE KL OXYOTCA Past Surgical History: Back Surgery, Bariatric Surgery, Bowel Resection, Cardiac Valve Replacement, Cholecystectomy, Orthopedic Surgery Additional Past Surgical History / Comment(s): back surgery Past Anesthesia/Blood Transfusion Reactions: No Reported Reaction Additional Past Anesthesia/Blood Transfusion Reaction / Comment(s): PAST BLOOD TRANSFUSION, no problems. Past Psychological History: Anxiety, Depression Additional Psychological History / Comment(s): lives at [facility] . pt stated she is independant uses [facility]- hx of falls and fell day of admit 09-28-18. Smoking Status: Never smoker Past Alcohol Use History: None Reported Past Drug Use History: None Reported - Past Family History Mother Family Medical History: Myocardial Infarction ([place]) Father Family Medical History: Myocardial Infarction ([place]) Medications and Allergies Home Medications Medication Instructions Recorded Confirmed Type Venlafaxine HCl [Effexor XR] 150 mg PO DAILY@0900 07/22/18 05/28/21 History ALPRAZolam [Xanax] 0.25 mg PO BID@0900,1300 09/28/18 05/28/21 History Loperamide HCl [Imodium A-D] 2 - 4 mg PO TID PRN 09/28/18 05/28/21 History Apixaban [Eliquis] 5 mg PO BID@0900,209904/13/21 05/28/21 History Ergocalciferol (Vitamin D2) 1,250 mcg PO MO 04/13/21 05/28/21 History [Drisdol (50,000 Iu)] Levothyroxine Sodium [Synthroid] 100 mcg PO DAILY@209904/13/21 05/28/21 History Omeprazole 20 mg PO DAILY@209904/13/21 05/28/21 History ALPRAZolam [Xanax] 0.5 mg PO HS@209905/28/21 05/28/21 History Acetaminophen Tab [Tylenol] 650 mg PO TID@0900,1300,209905/28/21 05/28/21 History Acetaminophen [Tylenol Arthritis] 650 mg PO Q8H PRN 05/28/21 05/28/21 History Artificial Tears-Hypromellose 1 drops BOTH EYES BID PRN 05/28/21 05/28/21 His tory [Artificial Tear Drops] Bismuth Subsalicylate 524 mg PO Q4H PRN 05/28/21 05/28/21 History [Pepto-Bismol] Cholestyramine (with Sugar) 4 gm PO DAILY@0900 05/28/21 05/28/21 History [Questran] Ferrous Sulfate [Iron (65 MG 325 mg PO TID@0900,1300,2100 05/28/21 05/28/21 History Elemental)] Fluticasone Nasal [place] [Flonase 1 spray EA NOSTRIL DAILY@0600 05/28/21 05/28/21 History Nasal [place]] Lactobacillus Acidophilus 2 cap PO DAILY@0900 05/28/21 05/28/21 History [Acidophilus] Lactose-Reduced Food [Ensure Plus] 1 can PO BID@0900,1700 05/28/21 05/28/21 Hist ory Melatonin 3 mg PO HS PRN 05/28/21 05/28/21 History Menthol [Biofreeze] 1 applic TOPICAL BID@0900,2100 05/28/21 05/28/21 History Menthol [Biofreeze] 1 applic TOPICAL Q12H PRN 05/28/21 05/28/21 History Midodrine HCl [ProAmatine] 10 mg PO TID@0900,1300,1800 05/28/21 05/28/21 History traMADol HCl [Ultram] 50 mg PO TID PRN 05/28/21 05/28/21 History Allergies Allergy/AdvReac Type Severity Reaction Status Date / Time clonazepam [From Klonopin] AdvReac Severe Hallucinati Verified 05/28/21 17:45 ons Physical Exam Vitals: Vital Signs Temp Pulse Pulse Resp BP BP Pulse Ox 05/29/21 08:00 71 11 L 05/29/21 07:45 97.1 F L 71 11 L 99/67 90 L 05/29/21 04:00 97.4 F L 54 L 14 99/55 97 05/29/21 02:00 44 L 12 05/29/21 00:00 97.4 F L 44 L 12 100/55 99 05/28/21 21:00 97.4 F L 37 L 14 108/60 100 05/28/21 20:00 37 L 14 05/28/21 19:22 40 L 20 108/66 95 05/28/21 17:49 43 L 20 111/48 88 L 05/28/21 16:35 108/52 05/28/21 16:13 98.2 F 50 L 20 92/55 90 L Intake and Output 05/28/21 05/29/21 05/29/21 22:59 06:59 14:59 Other: # Voids 0 0 Weight 40.823 kg 47 kg Results 05/28/21 17:09 05/28/21 17:09 Cardiac Enzymes 05/28/21 05/28/21 Range/Units 17:09 17:09 AST 77 H (14-36) U/L Troponin I <0.012 (0.000-0.034) ng/mL Coagulation 05/28/21 Range/Units 20:36 PT >130.0 H (9.0-12.0) sec APTT 97.8 H (22.0-30.0) sec CBC 05/28/21 Range/Units 17:09 WBC 6.9 (3.8-10.6) k/uL RBC 2.84 L (3.80-5.40) m/uL Hgb 9.8 L (11.4-16.0) gm/dL Hct 31.3 L (34.0-46.0) % Plt Count 319 (150-450) k/uL Comprehensive Metabolic Panel 05/28/21 Range/Units 17:09 Sodium 142 (137-145) mmol/L Potassium 5.0 (3.5-5.1) mmol/L Chloride 119 H (98-107) mmol/L Carbon Dioxide 11 L (22-30) mmol/L BUN 49 H (7-17) mg/dL Creatinine 1.78 H (0.52-1.04) mg/dL Glucose 76 (74-99) mg/dL Calcium 5.6 L* (8.4-10.2) mg/dL AST 77 H (14-36) U/L ALT 21 (4-34) U/L Alkaline Phosphatase 177 H (38-126) U/L Total Protein 6.0 L (6.3-8.2) g/dL Albumin 2.7 L (3.5-5.0) g/dL Current Medications Generic Name Dose Route Start Last Admin Trade Name Freq PRN Reason Stop Dose Admin Atropine Sulfate 2 drops 07/29/21 08:41 Atropine Ophth Soln 1% 5ml Btl SUBLINGUAL Q4HR PRN Excess Secretions Hydromorphone HCl 1 mg 05/28/21 21:24 05/28/21 22:05 Hydromorphone 1 Mg/Ml 1 Ml Syringe IVP 1 mg Q3HR PRN Administration Pain Sodium Chloride 1,000 mls @ 100 mls/hr 05/29/21 07:00 05/29/21 07:38 Saline 0.9% IV Not Given .Q10H TAMMY Lorazepam 1 mg 05/29/21 08:41 Lorazepam 2 Mg/Ml Inj IV Q6HR PRN Anxiety Naloxone HCl 0.2 mg 05/28/21 18:50 Naloxone 0.4 Mg/Ml 1 Ml Vial IV Q2M PRN Opioid Reversal Ondansetron HCl 4 mg 05/29/21 08:41 Ondansetron 4 Mg/2 Ml Vial IVP Q8HR PRN Nausea/emesis Pantoprazole Sodium 40 mg 05/29/21 09:00 05/29/21 07:38 Pantoprazole 40 Mg/10 Ml Vial IV 40 mg DAILY TAMMY Administration Saliva Substitute 1 spray 05/29/21 08:41 Dry Mouth [place] 44.3 [place]/44.3 Ml [place] MUCOUS MEM QID PRN Dry Mouth Intake and Output 05/28/21 05/29/21 05/29/21 22:59 06:59 14:59 Other: # Voids 0 0 Weight 40.823 kg 47 kg 05/28/21 17:09 05/28/21 17:09
== END 2021-05-29 13:26 | disposition expired | DRG 377 ==
LOC: EC 16:01 → 3SCARD 19:00
PROVIDERS: ADMIT Family Medicine; ATTEND Family Medicine
DX: K92.1 Melena (principal); G93.41 Metabolic encephalopathy; I48.19 Other persistent atrial fibrillation; I50.22 Chronic systolic (congestive) heart failure; N17.9 Acute kidney failure, unspecified; D62 Acute posthemorrhagic anemia; J44.9 Chronic obstructive pulmonary disease, unspecified; I11.0 Hypertensive heart disease with heart failure; I25.10 Atherosclerotic heart disease of native coronary artery without angina pectoris; D46.9 Myelodysplastic syndrome, unspecified; D63.8 Anemia in other chronic diseases classified elsewhere; R00.1 Bradycardia, unspecified; E03.9 Hypothyroidism, unspecified; E83.42 Hypomagnesemia; E83.51 Hypocalcemia; M06.9 Rheumatoid arthritis, unspecified; R29.6 Repeated falls; E86.0 Dehydration; F32.9 Major depressive disorder, single episode, unspecified; F41.9 Anxiety disorder, unspecified; H91.90 Unspecified hearing loss, unspecified ear; K21.9 Gastro-esophageal reflux disease without esophagitis; Z51.5 Encounter for palliative care; Z53.9 Procedure and treatment not carried out, unspecified reason; Z66 Do not resuscitate; Z79.01 Long term (current) use of anticoagulants; Z79.890 Hormone replacement therapy; Z79.899 Other long term (current) drug therapy; Z91.81 History of falling; Z95.2 Presence of prosthetic heart valve; Z90.49 Acquired absence of other specified parts of digestive tract; Z98.84 Bariatric surgery status
CPT/HCPCS: 36415; 74176; 80053; 82272; 83605; 83735; 84484; 85025; 85610; 85730; 86850; 86900; 86901; 93005; 96374; 99285